=== PATIENT | male | born 1930 | race Caucasian/White ===

== ENCOUNTER 2017-06-02 17:05 | Inpatient (IN) | payer OTHER ==
[~2017-06-02] VITALS: Ht 177.8 cm; Wt 73.7 kg
[~2017-06-02 17:05] MED LIST: ASPI-630 PO; CALC500T54 PO; DUTA0.5C PO; ENOX40DI SQ; FISH OIL OMEGA1 EACH PO; Hydrocodone/Acetaminophen PO; LEVO88TA4 PO; LOVA20TA2 PO; Metoprolol Tartrate PO; OMEG500C PO; OMEP40CA5 PO; TAMS0.4C2 PO; TRIA10PO2 MC; WARF5TAB7 PO; WARF7.5T6 PO
[2017-06-02] MEDS ORDERED: ASPIRIN CHEWABLE 81 MG TABLET. PO ONE (17:30)
[2017-06-02] MEDS ORDERED: NITROGLYCERIN SUBLINGUAL 0.4 MG BOTTLE OF 25. SL PRN (17:30)
[2017-06-02] MEDS ORDERED: fentaNYL PF VIAL 100 MCG/2 ML VIAL IV PRN (17:30)
--- NOTE | 2017-06-02 17:45 | EKG ---
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
[2017-06-02 18:14] LABS: BASO % 1 % (0-3); EOS % 1 % (0-3); HEMATOCRIT 41.8 % (39.0-53.0); HEMOGLOBIN 13.7 g/dL (13.0-17.5); LYMPH # 1.5 x10^3/uL (1.0-4.8); LYMPH % 22 % (24-48); MEAN CORPUSCULAR HEMOGLOBIN 29 pg (25-35); MEAN CORPUSCULAR HGB CONC 33 g/dL (31-37); MEAN CORPUSCULAR VOLUME 88 fL (79-100); MONO % 7 % (0-9); NEUT % 70 % (31-73); PLATELET COUNT 139 x10^3/uL (140-400); RED BLOOD COUNT 4.75 x10^6/uL (4.30-5.70); RED CELL DISTRIBUTION WIDTH 14.3 % (11.5-14.5); WHITE BLOOD COUNT 6.8 x10^3/uL (4.0-11.0)
[2017-06-02 18:30] LABS: CALCIUM 8.4 mg/dL (8.5-10.1); CREATININE 1.6 mg/dL (0.7-1.3); GFR 40.9
[2017-06-02 18:37] LABS: ALBUMIN 4.2 g/dL (3.4-5.0); DIRECT BILIRUBIN 0.3 mg/dL (0.0-0.2); TOTAL BILIRUBIN 1.2 mg/dL (0.2-1.0); TOTAL PROTEIN 6.2 g/dL (6.4-8.2)
[2017-06-02 20:25] VITALS: BP 140/80
[2017-06-02] MEDS ORDERED: NITROGLYCERIN PREMIX 250 ML IV ONE (20:45)
[2017-06-02] MEDS: MORPHINE SULFATE 2 MG/ML DISP.SYRIN. IV PRN ×2 (20:56→23:32)
[2017-06-02] MEDS ORDERED: ASPIRIN CHEWABLE 81 MG TABLET. PO SCH (21:00)
[2017-06-02] MEDS ORDERED: HEPARIN for IV BOLUS 10,000 UNIT/10 ML VIAL. IV ONE (21:00)
[2017-06-02] MEDS ORDERED: HEPARIN 25,000UTS/500ML PREMIX 500 ML IV PRN (21:00)
[2017-06-02] MEDS ORDERED: HEPARIN for IV BOLUS 10,000 UNIT/10 ML VIAL. IV PRN (21:00)
[2017-06-02] MEDS: METOPROLOL TART IMMED RELEASE 25 MG TABLET. PO SCH (21:00)
[2017-06-02] MEDS: ATORVASTATIN CALCIUM 20 MG TABLET PO SCH (21:00)
[2017-06-02] MEDS: TAMSULOSIN 0.4 MG CAP.ER.24H. PO SCH (21:00)
--- NOTE | 2017-06-02 21:11 | EKG ---
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 : 1930 Requested By: KIMBERLY BARRIOS Order Number: [id number] Reading MD: Measurements Intervals [place] Rate: 75 P: 0 MI: 140 QRS: 59 QRSD: 102 T: -52 QT: 428 QTc: 481 Interpretive Statements SINUS RHYTHM COMPLEX(ES) WITH ABERRANT INTRAVENTRICULAR CONDUCTION VENTRICULAR PREMATURE COMPLEX(ES) ATRIAL PREMATURE COMPLEX(ES) QRS(T) CONTOUR ABNORMALITY CONSIDER ANTEROLATERAL MYOCARDIAL DAMAGE ST & T ABNORMALITY, CONSIDER INFEROLATERAL ISCHEMIA OR LEFT VENTRICULAR STRAIN ABNORMAL ECG RI6.01 Compared to ECG 05/28/2017 22:49:16 Left-axis deviation no longer present Myocardial infarct finding no longer present T-wave abnormality still present Possible ischemia still present
[2017-06-02 21:19] LABS: INR 1.3 (0.8-1.1); PROTHROMBIN TIME PATIENT 15.4 SEC (11.7-14.0)
[2017-06-02 22:29] VITALS: BP 168/86
[2017-06-03] VITALS (11 sets, daily range): BP systolic 129–182; BP diastolic 75–101
[2017-06-03 01:05] LABS: HEMATOCRIT 40.9 % (39.0-53.0); HEMOGLOBIN 13.5 g/dL (13.0-17.5); RED BLOOD COUNT 4.69 x10^6/uL (4.30-5.70); RED CELL DISTRIBUTION WIDTH 14.8 % (11.5-14.5); WHITE BLOOD COUNT 6.1 x10^3/uL (4.0-11.0)
--- NOTE | 2017-06-03 01:13 | ED.ADGEN ---
Past Medical History Past Medical History: GERD, High Cholesterol, Hypothyroid Past Surgical History: Appendectomy, Cholecystectomy, Knee Replacement Additional Past Surgical Histo: OPEN HEART SURGERY-AORTIC VALVE REPLACEMENT, COLON SURGERY Alcohol Use: None Drug Use: None Adult General Chief Complaint Chief Complaint: CHEST PAIN HPI HPI Patient is a 87 year old and, history of hypertension, hypercholesterolemia, GERD, CAD, with an abnormal stress test was performed May 31 during her recent admission to the hospital. At that time the patient was discharged with a plan to treat medically, however he began experiencing chest pain earlier today, and when he contacted the cardiology office was told to come to the ED for additional evaluation. On arrival to the ED, patient states that his pain is currently fully resolved. He states it was attributed 10-14 to the ED, described as a dull aching pressure located in the left side of his chest with some radiation to the left arm. He denies any nausea or vomiting, any shortness breath, any belching, any radiation of the back, any weakness, numbness, tingling, any injuries, states that the symptoms are consistent with the chest pain that brought him to the ED before his previous evaluation that resulted in the abnormal stress test. Patient states he has been compliant with medications at home, but was not discharged with any nitrates. Patient has received 324 mg of aspirin in the ED orally. No history of recent travel or surgery, no history of DVT or PE. No swelling extremities, no rashes. Review of Systems Review of Systems Constitutional: Denies fever or chills. [] Eyes: Denies change in visual acuity. [] HENT: Denies nasal congestion or sore throat. [] Respiratory: Denies cough or shortness of breath. [] Cardiovascular: Left-sided chest pain and pressure. No edema. GI: Denies abdominal pain, nausea, vomiting, bloody stools or diarrhea. [] : Denies dysuria. [] Musculoskeletal: Denies back pain or joint pain. [] Integument: Denies rash. [] Neurologic: Denies headache, focal weakness or sensory changes. [] Endocrine: Denies polyuria or polydipsia. [] Lymphatic: Denies swollen glands. [] Psychiatric: Denies depression or anxiety. [] Current Medications Current Medications Current Medications Medications (Trade) Dose Ordered Sig/Kristina Start Time Stop Time Status Last Admin Dose Admin Aspirin (Children'S Aspirin) 324 mg 1X ONCE 8/10/17 17:30 06/02/17 17:32 DC 06/02/17 17:58 324 MG Fentanyl Citrate (Fentanyl 2ml Vial) 25 mcg PRN Q15MIN PRN 06/02/17 17:30 06/03/17 17:29 06/02/17 17:59 25 MCG Nitroglycerin (Nitrostat) 0.4 mg PRN Q5MIN PRN 06/02/17 17:30 06/03/17 17:29 Allergies Allergies Allergies Coded Allergies Type Severity Reaction Last Updated Verified amoxicillin Allergy Intermediate 03/10/15 Yes Physical Exam Physical Exam Constitutional: Well developed, well nourished, no acute distress, non-toxic appearance. [] HENT: Normocephalic, atraumatic, bilateral external ears normal, oropharynx moist, no oral exudates, nose normal. [] Eyes: PERRLA, EOMI, conjunctiva normal, no discharge. [] Neck: Normal range of motion, no tenderness, supple, no stridor. [] Cardiovascular:Heart rate regular rhythm, no murmur , S1, S2, rubs or gallops. No chest wall crepitus or tenderness. [] Lungs & Thorax: Bilateral breath sounds clear to auscultation, no wheezing, rhonchi, rales. No lesions or abnormalities identified. [] Abdomen: Bowel sounds normal, soft, no tenderness, no rebound, rigidity, no guarding, no masses, no pulsatile masses. [] Skin: Warm, dry, no erythema, no rash. [] Back: No tenderness, no CVA tenderness. [] Extremities: No tenderness, no cyanosis, no clubbing, ROM intact, no edema. Negative Homans sign. [] Neurologic: Alert and oriented X 3, normal motor function, normal sensory function, no focal deficits noted. [] Psychologic: Affect normal, judgement normal, mood normal. [] Current Patient Data Vital Signs Vital Signs Date Time Temp Pulse Resp B/P (MAP) Pulse Ox O2 Delivery O2 Flow Rate FiO2 06/02/17 18:17 77 19 111/65 (80) 95 Room Air 06/02/17 17:19 97.9 97.9 Lab Values Laboratory Tests Test 06/02/17 17:55 White Blood Count 6.8 x10^3/uL (4.0-11.0) Red Blood Count 4.75 x10^6/uL (4.30-5.70) Hemoglobin 13.7 g/dL (13.0-17.5) Hematocrit 41.8 % (39.0-53.0) Mean Corpuscular Volume 88 fL (79-100) Mean Corpuscular Hemoglobin 29 pg (25-35) Mean Corpuscular Hemoglobin Concent 33 g/dL (31-37) Red Cell Distribution Width 14.3 % (11.5-14.5) Platelet Count 139 x10^3/uL (140-400) L Neutrophils (%) (Auto) 70 % (31-73) Lymphocytes (%) (Auto) 22 % (24-48) L Monocytes (%) (Auto) 7 % (0-9) Eosinophils (%) (Auto) 1 % (0-3) Basophils (%) (Auto) 1 % (0-3) Neutrophils # (Auto) 4.8 x10^3uL (1.8-7.7) Lymphocytes # (Auto) 1.5 x10^3/uL (1.0-4.8) Monocytes # (Auto) 0.5 x10^3/uL (0.0-1.1) Eosinophils # (Auto) 0.1 x10^3/uL (0.0-0.7) Basophils # (Auto) 0.0 x10^3/uL (0.0-0.2) Prothrombin Time 15.4 SEC (11.7-14.0) H Prothrombin Time INR 1.3 (0.8-1.1) H PTT 29 SEC (24-38) Sodium Level 142 mmol/L (136-145) Potassium Level 4.0 mmol/L (3.5-5.1) Chloride Level 107 mmol/L (98-107) Carbon Dioxide Level 23 mmol/L (21-32) Anion Gap 12 (6-14) Blood Urea Nitrogen 26 mg/dL (8-26) Creatinine 1.6 mg/dL (0.7-1.3) H Estimated GFR (Cockcroft-Gault) 40.9 Glucose Level 106 mg/dL (70-99) H Calcium Level 8.4 mg/dL (8.5-10.1) L Total Bilirubin 1.2 mg/dL (0.2-1.0) H Direct Bilirubin 0.3 mg/dL (0.0-0.2) H Aspartate Amino Transferase (AST) 23 U/L (15-37) Alanine Aminotransferase (ALT) 23 U/L (16-63) Alkaline Phosphatase 71 U/L (46-116) Troponin I Quantitative 0.646 ng/mL (0.000-0.055) XK-Ojr-I-Type Natriuretic Peptide 6002 pg/mL (0-449) H Total Protein 6.2 g/dL (6.4-8.2) L Albumin 4.2 g/dL (3.4-5.0) Lipase 140 U/L (73-393) Laboratory Tests 06/02/17 17:55 Laboratory Tests 06/02/17 17:55 EKG EKG EC: Sinus rhythm, heart rate 73 bpm, left axis deviation, patient with contour abnormalities noted in the inferior and lateral leads, with evidence of left ventricular hypertrophy, patient with persistent T-wave inversions in V6, although patient noted to have some mild depression of 2 mm in V4, with 1 mm macular of elevation in lead 3, and T-wave inversions noted in aVL, also in lead 1. ECG is abnormal, as stated, and unchanged from prior test performed 2016, although LVH is consistent, the T-wave changes noted in the inferior and lead V6 are new. Patient is pain-free at time of this ECG being obtained, and although doesn't normally does not meet STEMI criteria. EC: Sinus rhythm, heart rate 72 beats minute, single PVC noted, left ventricular hypertrophy with repolarization as stated, with T-wave inversions again noted in V6, also noted in V5 at this time, with no other significant changes identified, QTC of 466, WI 156, QRS of 96. Patient remains chest pain- free at time of this repeat ECG. [] Radiology/Procedures Radiology/Procedures Chest x-ray: One view: Slight tortuosity of the aorta, with otherwise cardial silhouette, sternotomy wires in place, mild flattening of diaphragms bilaterally , no pneumothorax, no effusion, no soft tissue or bony abnormalities identified. As interpreted by me. Course & Med Decision Making Course & Med Decision Making Pertinent Labs and Imaging studies reviewed. (See chart for details) Patient asymptomatic at time of evaluation the ED. Although ECG does reveal some concerning findings, with T-wave inversions noted in the lateral leads, patient is a history of left hypertrophy, and ECG does not meet STEMI criteria. Vital signs within normal limits, patient has received full dose aspirin. Troponin was positive at 0.6, I did discuss ECGs and laboratory studies with Dr. Avelar of cardiology, patient initiated on a heparin drip. Plan for admission to the hospital, and catheterization to be performed tomorrow discussed with patient and family at bedside, who were in agreement with this plan. Patient remained stable and comfortable in the emergency department, at time of transfer to the floor. Patient accepted to the service of Dr. Wiseman, of internal medicine, with bridge orders entered, with plan as above. Dragon Disclaimer Dragon Disclaimer This electronic medical record was generated, in whole or in part, using a voice recognition dictation system. Departure Impression: Primary Impression: NSTEMI (non-ST elevated myocardial infarction) Disposition: 09 ADMITTED INPATIENT Admitting Physician: Shaila Wiseman Condition: IMPROVED BRYANT MUELLER DO Jun 03, 2017 01:13
--- NOTE | 2017-06-03 01:15 | ACF ---
Admission Forms Criteria MYOCARDIAL INFARCTION Clinical Indications for Admission to Inpatient Care (Place 'X' for any and all applicable criteria): Admission is indicated for 1 or more of the following (1)(2)(3)(4): [ X]I. Acute AR [ ]II. Contraindications and/or Inappropriate clinical situations for Observational Care in patients with Myocardial Infarction, when ANY ONE of the following is required: [ ]a) Patient with High risk of cardiac embolism (e.g, patients with previous cardiac embolism, LVEF < 40%, age >75 and patients with prosthetic valve) 18 [ ]b) Patient with Moderate risk including DM patient, CAD and patient aged 65-75 18 [ ]c) Patient with any change in cardiac biomarker especially troponin should be managed as high risk in an inpatient setting 19 [ ]d) Physician judgement irrespective of ECG and other diagnostic findings 20 [ ]III.General contraindications and/or Inappropriate clinical situations for Observational Care in patients with Myocardial Infarction, when ANY ONE of the following is required: [ ]a) Prediction of prolongation of LOS based on ANY ONE of the following may be considered as a contraindication for observational care 2, 3, 4, 5, 6, 7, 8, 9, 10, 11 [ ]i) Age > 65 yrs. [ ]ii) Patient arriving by ambulance [ ]iii) Patient with high acuity [ ]iv) Patient requiring vital sign monitoring [ ]v) Patient on IV medication [ ]b) Systolic blood pressures greater than or equal to 180mmHg 3,12 [ ]c) Patient with altered mental status including delirium and other alteration of consciousness, (3) [ ]d) Patient whose discharge disposition will be to a alf home or rehabilitation home should not be managed in Emergency Department Observation Unit. CMS rule requires 3 days hospital stay before such placement. 3,13 [ ]e) Patient with failure to thrive due to broad array of etiologies 3 ,16,17 [ ]f) Inability to ambulate 3,14 Extended stay beyond goal length of stay may be needed for (1)(18)(20)(24)(25): [ ]a) Hemodynamic instability, persisting symptoms after intensive medical management, or recurring severe, prolonged symptoms [ ]b) Intravascular procedural complications such as acute vessel closure, stent thrombosis, stent malposition, or vessel dissection (26)(27)(28) [ ]c) Extravascular procedural complications such as retroperitoneal hematoma , pericardial effusion, or cardiac tamponade [ ]d) Entry site complications causing bleeding, hematoma or distal ischemia and requiring ongoing monitoring, surgical repair or surgical thrombectomy. Dangerous arrhythmia [ ]e) Complicated percutaneous coronary intervention (e.g., unsuccessful percutaneous coronary intervention or percutaneous coronary intervention of non- grand traverse vessel) [ ]f) Urgent or emergent surgery for complications of AR (e.g., ventricular rupture, valvular insufficiency) [ ]g) Surgical revascularization via coronary artery bypass graft [ ]h) Heart failure (e.g., pulmonary edema) [ ]i) Unstable pulmonary comorbidities, including COPD or pneumonia (31) [ ]j) Acute renal failure The original [employer] content created by [employer] has been revised. The portions of the content which have been revised are identified through the use of italic text or in bold, and [facility] [employer] has neither reviewed nor approved the modified material. All other unmodified content is copyright [facility] [employer] Please see references footnoted in the original [facility] edition 2016 Admission Criteria Met?: Yes RICCARDO JUSTIN Jun 03, 2017 01:15
[2017-06-03] MEDS: HYDROcodone/APAP 5/325MG 1 TAB TABLET PO PRN ×2 (02:25→08:13)
--- NOTE | 2017-06-03 06:11 | EKG ---
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
[2017-06-03 06:25] LABS: INR 1.3 (0.8-1.1); PROTHROMBIN TIME PATIENT 15.8 SEC (11.7-14.0)
[2017-06-03 06:34] LABS: CALCIUM 8.8 mg/dL (8.5-10.1); CREATININE 1.5 mg/dL (0.7-1.3); GFR 44.1; POTASSIUM 4.1 mmol/L (3.5-5.1)
[2017-06-03 06:39] LABS: BASO % 1 % (0-3); EOS % 1 % (0-3); HEMATOCRIT 39.6 % (39.0-53.0); HEMOGLOBIN 13.8 g/dL (13.0-17.5); LYMPH # 1.7 x10^3/uL (1.0-4.8); LYMPH % 29 % (24-48); MEAN CORPUSCULAR HEMOGLOBIN 30 pg (25-35); MEAN CORPUSCULAR HGB CONC 35 g/dL (31-37); MEAN CORPUSCULAR VOLUME 86 fL (79-100); MONO % 8 % (0-9); NEUT % 62 % (31-73); PLATELET COUNT 136 x10^3/uL (140-400); RED BLOOD COUNT 4.59 x10^6/uL (4.30-5.70); RED CELL DISTRIBUTION WIDTH 14.5 % (11.5-14.5); WHITE BLOOD COUNT 5.8 x10^3/uL (4.0-11.0)
[2017-06-03] MEDS: DUTASTERIDE 0.5 MG CAPSULE PO SCH (08:09)
[2017-06-03] MEDS: OMEGA-3 FATTY ACIDS/FISH OIL 1,000 MG CAPSULE. PO SCH (08:09)
[2017-06-03] MEDS: CALCIUM CARBONATE 500 MG TABLET PO SCH (08:10)
[2017-06-03] MEDS: METOPROLOL TART IMMED RELEASE 25 MG TABLET. PO SCH ×2 (08:10→21:17)
[2017-06-03] MEDS: PANTOPRAZOLE 40 MG TABLET.DR. PO SCH (08:10)
[2017-06-03] MEDS: LEVOTHYROXINE 50 MCG TABLET PO SCH (08:10)
--- NOTE | 2017-06-03 08:13 | RAD ---
Indication chest pain. A single view chest was obtained and is compared to an examination 5 days earlier. Postoperative changes and a prosthetic valve are noted. Heart size at the upper limits of normal. Slightly tortuous thoracic aorta is noted. Some prominence of the ascending thoracic aorta is again noted appearing similar. There is no congestive heart failure focal infiltrate significant pleural fluid collection or pneumothorax. There has not been a significant change in the appearance of the chest compared to the previous exam. IMPRESSION: No acute finding. No significant change
--- NOTE | 2017-06-03 09:07 | PDOC ---
ANNA SEAMAN GASOLINE CATALYST OPERATOR 06/03/17 0907: CARDIO Progress Notes Date and Time Date of Service 06/03/17 Time of Evaluation 0900 Subjective Subjective: No Chest Pain, No shortness of breath, No Palpitations Vitals Vitals Vital Signs Date Time Temp Pulse Resp B/P (MAP) Pulse Ox O2 Delivery O2 Flow Rate FiO2 06/03/17 08:13 18 98 2.0 06/03/17 08:10 73 179/101 06/03/17 07:00 97.6 97.6 06/03/17 02:15 Nasal Cannula Weight Weight [ ] Input and Output Intake and Output Intake and Output 06/03/17 07:00 Intake Total 500 ml Output Total 300 ml Balance 200 ml Intake Oral 500 ml Output Urine Total 300 ml Laboratory Labs Laboratory Tests Test 06/02/17 17:55 06/03/17 00:01 06/03/17 04:30 06/03/17 05:00 White Blood Count 6.8 x10^3/uL (4.0-11.0) 6.1 x10^3/uL (4.0-11.0) 5.8 x10^3/uL (4.0-11.0) Red Blood Count 4.75 x10^6/uL (4.30-5.70) 4.69 x10^6/uL (4.30-5.70) 4.59 x10^6/uL (4.30-5.70) Hemoglobin 13.7 g/dL (13.0-17.5) 13.5 g/dL (13.0-17.5) 13.8 g/dL (13.0-17.5) Hematocrit 41.8 % (39.0-53.0) 40.9 % (39.0-53.0) 39.6 % (39.0-53.0) Mean Corpuscular Volume 88 fL (79-100) 87 fL (79-100) 86 fL (79-100) Mean Corpuscular Hemoglobin 29 pg (25-35) 29 pg (25-35) 30 pg (25-35) Mean Corpuscular Hemoglobin Concent 33 g/dL (31-37) 33 g/dL (31-37) 35 g/dL (31-37) Red Cell Distribution Width 14.3 % (11.5-14.5) 14.8 % (11.5-14.5) 14.5 % (11.5-14.5) Platelet Count 139 x10^3/uL (140-400) 134 x10^3/uL (140-400) 136 x10^3/uL (140-400) Neutrophils (%) (Auto) 70 % (31-73) 62 % (31-73) Lymphocytes (%) (Auto) 22 % (24-48) 29 % (24-48) Monocytes (%) (Auto) 7 % (0-9) 8 % (0-9) Eosinophils (%) (Auto) 1 % (0-3) 1 % (0-3) Basophils (%) (Auto) 1 % (0-3) 1 % (0-3) Neutrophils # (Auto) 4.8 x10^3uL (1.8-7.7) 3.6 x10^3uL (1.8-7.7) Lymphocytes # (Auto) 1.5 x10^3/uL (1.0-4.8) 1.7 x10^3/uL (1.0-4.8) Monocytes # (Auto) 0.5 x10^3/uL (0.0-1.1) 0.5 x10^3/uL (0.0-1.1) Eosinophils # (Auto) 0.1 x10^3/uL (0.0-0.7) 0.1 x10^3/uL (0.0-0.7) Basophils # (Auto) 0.0 x10^3/uL (0.0-0.2) 0.0 x10^3/uL (0.0-0.2) Prothrombin Time 15.4 SEC (11.7-14.0) 15.8 SEC (11.7-14.0) Prothromb Time International Ratio 1.3 (0.8-1.1) 1.3 (0.8-1.1) Activated Partial Thromboplast Time 29 SEC (24-38) Sodium Level 142 mmol/L (136-145) 141 mmol/L (136-145) Potassium Level 4.0 mmol/L (3.5-5.1) 4.1 mmol/L (3.5-5.1) Chloride Level 107 mmol/L (98-107) 105 mmol/L (98-107) Carbon Dioxide Level 23 mmol/L (21-32) 24 mmol/L (21-32) Anion Gap 12 (6-14) 12 (6-14) Blood Urea Nitrogen 26 mg/dL (8-26) 23 mg/dL (8-26) Creatinine 1.6 mg/dL (0.7-1.3) 1.5 mg/dL (0.7-1.3) Estimated GFR (Cockcroft-Gault) 40.9 44.1 Glucose Level 106 mg/dL (70-99) 128 mg/dL (70-99) Calcium Level 8.4 mg/dL (8.5-10.1) 8.8 mg/dL (8.5-10.1) Total Bilirubin 1.2 mg/dL (0.2-1.0) Direct Bilirubin 0.3 mg/dL (0.0-0.2) Aspartate Amino Transf (AST/SGOT) 23 U/L (15-37) Alanine Aminotransferase (ALT/SGPT) 23 U/L (16-63) Alkaline Phosphatase 71 U/L (46-116) Troponin I Quantitative 0.646 ng/mL (0.000-0.055) 1.463 ng/mL (0.000-0.055) 1.521 ng/mL (0.000-0.055) SL-Kih-O-Type Natriuretic Peptide 6002 pg/mL (0-449) Total Protein 6.2 g/dL (6.4-8.2) Albumin 4.2 g/dL (3.4-5.0) Lipase 140 U/L (73-393) Physical Exam HEENT: Neck Supple W Full Motion Chest: Symmetric LUNGS: Clear to Auscultation Heart: S1S2, RRR, murmurs (3/6 systolic murmur ) Abdomen: Soft N/T Extremities: 2+ Dorsalis Pedis, No Edema Neurology: alert, oriented, follow commands Assessment Assessment This is an 87 yo male, known to us from recent hospitalization, who returns with complaints of chest pain. Patient underwent stress test this past week, which noted very small defect in the inferoseptal region. Echo revealed preserved LV function with an EF of 50-55%. Treated medically with consideration of further ischemic evaluation if symptoms returned. Patient reports experiencing intermittent pain for the last day or so. Located in his left chest. Describes as aching. Radiates down his left arm. Onset both at reset and with activity. Onset at both rest and with activity. Seems to be worsened with activity. Denies any associated dizziness, diaphoresis, palpitations, diaphoresis, or nausea. Reports compliance with medications. Assessment 1. NSTEMI; troponin highest 1.5. Continue to trend. 3. Unstable angina with a history of CAD s/p CABG; continue nitro. Keep NPO. 4. S/p aortic mechanical valve replacement. Recent Echo reveals normal valvular function. Continue warfarin therapy; INR subtherapeutic. 5. Hypertension; home antiHTN therapy resumed. 6. Hyperlipidemia. LDL 79. statin therapy. Recommendations Start heparin per protocol Continue nitro gtt. Given significant risk factors, symptomatology, and slightly abnormal MPI in the setting of NSTEMI, will proceed with cardiac catheterization. R/b/a discussed with patient and family and are agreeable. D/w primary cardiology. Will proceed with later on today. SHELTON LY MD 06/03/17 1513: CARDIO Progress Notes Assessment Assessment Patient seen and examined. Agree with VP BIOLOGY's assessment and plan. Chest pain with typical features and troponin level elevated consistent with non -STEMI. We will proceed with cardiac catheterization and possible angioplasty. Risks and benefits were explained. INR subtherapeutic. Adjust Coumadin to keep INR between 2.5-3.5 secondary to mechanical aVR. Thank you for your consultation. ANNA SEAMAN APRN Jun 03, 2017 09:07 SHELTON LY MD Jun 03, 2017 15:13
[2017-06-03] MEDS ORDERED: ONDANSETRON PF 4 MG/2 ML VIAL. IV PRN (10:00)
[2017-06-03] MEDS ORDERED: HEPARIN 25,000UTS/500ML PREMIX 500 ML IV PRN (10:15)
[2017-06-03] MEDS ORDERED: HEPARIN for IV BOLUS 10,000 UNIT/10 ML VIAL. IV PRN (10:15)
--- NOTE | 2017-06-03 11:23 | HP ---
ADMIT DATE: 06/03/2017 CHIEF COMPLAINT: Chest pain. HISTORY OF PRESENT ILLNESS: The patient is a pleasant elderly male who has known coronary disease. In fact he has had even aortic valve replacement as well. At this time, he presents with chest pain that has been occurring for a couple of days off and on. He had an abnormal stress test back in May 31. He was actually admitted at that time. They were going to medically treat his coronary artery disease at that time. At this time, his troponin is climbing and it is up to 1.5. I discussed the case with the ER physician. We will admit the patient with consultation to Cardiology, is on a nitro drip. PAST MEDICAL HISTORY: Coronary artery disease, hypertension, hyperlipidemia, aortic valve replacement, chronic anticoagulation, cholecystectomy, knee replacement, colon surgery. ALLERGIES: AMOXICILLIN. FAMILY HISTORY: Coronary artery disease. SOCIAL HISTORY: Does not drink, smoke or take drugs. MEDICATIONS: Reviewed, please refer to the MRAD. REVIEW OF SYSTEMS: GENERAL: No history of weight change, weakness or fevers. SKIN: No bruising, hair changes or rashes. EYES: No blurred, double or loss of vision. NOSE AND THROAT: No history of nosebleeds, hoarseness or sore throat. HEART: He complains of chest pain. LUNGS: Denies cough, hemoptysis, wheezing or shortness of breath. GASTROINTESTINAL: Denies changes in appetite, nausea, vomiting, diarrhea or constipation. GENITOURINARY: No history of frequency, urgency, hesitancy or nocturia. NEUROLOGIC: Denies history of numbness, tingling, tremor or weakness. PSYCHIATRIC: No history of panic, anxiety or depression. ENDOCRINE: No history of heat or cold intolerance, polyuria or polydipsia. EXTREMITIES: Denies muscle weakness, joint pain, pain on walking or stiffness. PHYSICAL EXAMINATION: VITAL SIGNS: Temperature afebrile, pulse 73, respirations 18, blood pressure 179/101. GENERAL: He is alert, cooperative. HEART: Normal S1, S2. LUNGS: Clear. ABDOMEN: Soft, positive bowel sounds. EXTREMITIES: 1+ edema. SKIN: No rashes. PSYCHIATRIC: He is a little flat, but stable. ENDOCRINE: No thyromegaly. LYMPHATICS: No cervical nodes. HEMATOPOIETIC: No bruising. ASSESSMENT AND PLAN: Probable acute myocardial infarction with an elevated troponin of 1.5. The patient has been admitted. We are continuing serial enzymes, serial EKGs, cardiac monitoring, nitro drip. We will consult Cardiology. 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 PROGNOSIS: Guarded. MERLINE SHI DO DR: GEOVANY/devika JOB#: [id number] / [id number]
[2017-06-03] MEDS ORDERED: LIDOCAINE 2% 20 ML VIAL. ONE (13:15)
[2017-06-03] MEDS ORDERED: IODIXANOL 320 MG/ML 100 ML VIAL. ONE ×2 (13:15→14:27)
[2017-06-03] MEDS ORDERED: fentaNYL PF VIAL 100 MCG/2 ML VIAL IV ONE (13:45)
[2017-06-03] MEDS ORDERED: LIDOCAINE 2% 20 ML VIAL. IJ ONE (13:45)
[2017-06-03] MEDS ORDERED: VERAPAMIL 5 MG/2 ML VIAL. IART ONE (13:45)
[2017-06-03] MEDS ORDERED: MIDAZOLAM HCL/PF 2 MG/2 ML VIAL. IV ONE (13:45)
[2017-06-03] MEDS ORDERED: HEPARIN for IV BOLUS 10,000 UNIT/10 ML VIAL. IART ONE (13:45)
[2017-06-03] MEDS ORDERED: NITROGLYCERIN 200 MCG/2 ML SYRINGE FOR CATH/VASC LAB. IART ONE (13:45)
[2017-06-03] MEDS ORDERED: IODIXANOL 320 MG/ML 100 ML VIAL. IART ONE (13:45)
[2017-06-03] MEDS ORDERED: VERAPAMIL 5 MG/2 ML VIAL. ONE ×2 (13:51→15:00)
[2017-06-03] MEDS ORDERED: HEPARIN for IV BOLUS 10,000 UNIT/10 ML VIAL. ONE (13:51)
[2017-06-03] MEDS ORDERED: NITROGLYCERIN 200 MCG/2 ML SYRINGE FOR CATH/VASC LAB. ONE (13:51)
[2017-06-03] MEDS ORDERED: fentaNYL PF VIAL 100 MCG/2 ML VIAL ONE (13:52)
[2017-06-03] MEDS ORDERED: MIDAZOLAM HCL/PF 2 MG/2 ML VIAL. ONE (13:52)
[2017-06-03] MEDS ORDERED: BIVALIRUDIN 250 MG VIAL. IV ONE ×2 (14:22→14:45)
[2017-06-03] MEDS ORDERED: CLOPIDOGREL BISULFATE 75 MG TABLET PO ONE (14:45)
[2017-06-03] MEDS ORDERED: ASPIRIN 325 MG TABLET PO ONE (14:45)
[2017-06-03] MEDS ORDERED: ASPIRIN 325 MG TABLET ONE (14:59)
[2017-06-03] MEDS ORDERED: CLOPIDOGREL BISULFATE 75 MG TABLET ONE (14:59)
--- NOTE | 2017-06-03 15:24 | PDOC ---
MODERATE SEDATION ASSESSMENT RISKS/ALTERNATIVES Risks/Alternatives Risks and alternatives of this type of sedation and procedure discussed with: RISK/ALTERNATIVES: Patient H & P ON CHART H & P H & P on chart and reviewed for co-morbid conditions and appropriate labs. H&P ON CHART: Yes STATUS PREG STATUS ASSESSED: N/A MEDS/ALLERGIES REVIEWED Meds/Allergies Reviewed Medications and Allergies including time and route of recently administered narcotics and sedatives. MEDS/ALLERGIES REVIEWED: Yes ASA RATING ASA RATING: II AIRWAY ASSESSMENT Airway Assessment Airway patency, oral function limitations, presence of caps, crowns, dentures, partials, and ability to extend neck assessed. AIRWAY ASSESSMENT: Yes MALLAMPATI SCORE MALLAMPATI SCORE: II PRE-SEDATION ASSESSMENT PRE-SEDATION ASSESSMENT: Yes SHELTON LY MD Jun 03, 2017 15:24
[2017-06-03] MEDS ORDERED: NITROGLYCERIN SUBLINGUAL 0.4 MG BOTTLE OF 25. SL PRN (15:30)
[2017-06-03] MEDS ORDERED: ACETAMINOPHEN 325 MG TABLET. PO PRN (15:30)
[2017-06-03] MEDS: IV 1/2 NORMAL SALINE 1,000 ML IV SCH (15:41)
--- NOTE | 2017-06-03 15:52 | CARD ---
APPROVED REPORT Procedure(s) performed: 1. Left heart catheterization, selective coronary angiography and selective angiography of the bypass graft 2. Successful PCI/drug eluting stents placement to the right coronary artery 3. Successful PCI/drug eluting stent placement to left anterior descending artery via left internal mammary artery graft Sedation time: 64 min INDICATION The indication(s) include : non-STEMI . PROCEDURE NARRATIVE After explaining the risks, benefits and alternative options, informed consent was obtained from sarkis ent. Patient was brought to the cardia [facility] and his right groin was prepped and draped in the usu al fashion. 20 mL of 2% lidocaine was infiltrated into the skin and subcutaneous tissues for local an esthesia. Arterial access was obtained in the right common femoral artery and a 6 [place]ian sheath was i nserted. 6 [place]ian JL4 and 6 [place] JR4 catheters were used to perform selective angiography of the le ft and right coronary arteries. 6 [place] IM catheter was used to perform selective angiography of the left internal mammary artery graft to the left anterior descending artery. Several attempts were mad e to engage probable vein graft (bypass report not available) to left circumflex artery using JR4, IM , LCB catheters were unsuccessful. Aortogram was then performed with a 6 [place] pigtail catheter that confirmed lack of any other patent grafts. Left ventriculography was not performed due to presence o f mechanical aortic valve. The following findings were noted. FINDINGS 1. Left main coronary artery arose from the left sinus of Valsalva, gave rise to the left anterior d escending and left circumflex arteries and showed 40% distal segment stenosis. 2. The left anterior descending artery showed 100% occlusion in the midsegment. 3. The left circumflex artery showed 100% occlusion in the midsegment. 4. The right coronary artery was a large and dominant vessel arising from the right sinus of Valsalv a that showed a long 90-95% stenosis involving the proximal and mid segments. 5 . The left internal mammary artery graft to the left anterior descending artery was widely patent. Distal to the anastomosis, the alutiiq left anterior descending artery showed 80% stenosis. 6. Probable complete and chronic occlusion of vein graft to the left circumflex artery if any (kim dorado surgery report not available) INTERVENTION The right coronary artery was engaged with a 6 [place] JR4 guide catheter and the long stenosis in the proximal and mid segments was crossed with a 0.014 inch PressBaby guidewire. This was predilate d with a 3.0 x 20 mm trek balloon following which this was successfully treated with overlapping 3.0 x 38 mm and 3.5 x 33 mm Xience Alpine drug-eluting stents. Follow-up angiography showed resolution of the stenosis to 0% with CAITLYN-3 distal flow. Subsequently, the left internal mammary artery graft to the left anterior descending artery was engaged with a 6 [place] IM guide catheter and the stenosis in the left anterior descending artery was crossed with the same guidewire. This was successfully treat ed with a 2.5 x 18 mm Xience Alpine drug-eluting stent. Follow-up angiogrhaphy showed resolution of t he stenosis to 0% with CAITLYN-3 distal flow. Patient tolerated the procedure well. Hemostasis in the [facility] groin was achieved using Angio-Seal. There were no immediate complications. Conclusion 1. 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 2. Successful PCI/drug eluting stents placement to right coronary artery. 3. Successful PCI/drug eluting stent placement to the alutiiq left anterior descending artery via lef t internal mammary artery graft. Recommendations 1. Aspirin 325 mg daily 2. Plavix the 75 mg daily for preferably one year 3. Cardiovascular risk factor modification.
[2017-06-03] MEDS: TAMSULOSIN 0.4 MG CAP.ER.24H. PO SCH (21:17)
[2017-06-03] MEDS: ATORVASTATIN CALCIUM 20 MG TABLET PO SCH (21:17)
[2017-06-04 02:01] VITALS: BP 145/87
[2017-06-04] MEDS: IV 1/2 NORMAL SALINE 1,000 ML IV SCH (05:00)
[2017-06-04 05:33] LABS: HEMATOCRIT 42.1 % (39.0-53.0); HEMOGLOBIN 13.9 g/dL (13.0-17.5); RED BLOOD COUNT 4.75 x10^6/uL (4.30-5.70); RED CELL DISTRIBUTION WIDTH 14.6 % (11.5-14.5); WHITE BLOOD COUNT 7.9 x10^3/uL (4.0-11.0)
[2017-06-04 07:30] VITALS: BP 118/74
[2017-06-04] MEDS: LEVOTHYROXINE 50 MCG TABLET PO SCH (07:40)
[2017-06-04] MEDS: PANTOPRAZOLE 40 MG TABLET.DR. PO SCH (07:41)
[2017-06-04] MEDS ORDERED: ASPIRIN ENTERIC COATED 81 MG TABLET.DR. PO SCH (08:00)
[2017-06-04] MEDS ORDERED: CLOPIDOGREL BISULFATE 75 MG TABLET PO SCH (08:00)
[2017-06-04] MEDS: DUTASTERIDE 0.5 MG CAPSULE PO SCH (09:02)
[2017-06-04] MEDS: OMEGA-3 FATTY ACIDS/FISH OIL 1,000 MG CAPSULE. PO SCH (09:02)
[2017-06-04] MEDS: CALCIUM CARBONATE 500 MG TABLET PO SCH (09:02)
[2017-06-04] MEDS: METOPROLOL TART IMMED RELEASE 25 MG TABLET. PO SCH (09:03)
--- NOTE | 2017-06-04 09:55 | PDOC ---
NIKOLAI JUAREZ [employer] 06/04/17 0955: CARDIO Progress Notes Date and Time Date of Service 06/04/2017 Time of Evaluation 0840 Subjective Subjective: No Chest Pain, No shortness of breath, No Palpitations Vitals Vitals Vital Signs Date Time Temp Pulse Resp B/P (MAP) Pulse Ox O2 Delivery O2 Flow Rate FiO2 06/04/17 09:03 79 124/72 06/04/17 07:40 Nasal Cannula 2.0 06/04/17 07:30 97.5 18 98 97.5 Weight Weight [ ] Input and Output Intake and Output Intake and Output 06/04/17 07:00 Intake Total 400 ml Output Total 700 ml Balance -300 ml Intake Oral 400 ml Output Urine Total 700 ml Laboratory Labs Laboratory Tests Test 06/03/17 11:15 06/04/17 04:15 Troponin I Quantitative 11.818 ng/mL (0.000-0.055) White Blood Count 7.9 x10^3/uL (4.0-11.0) Red Blood Count 4.75 x10^6/uL (4.30-5.70) Hemoglobin 13.9 g/dL (13.0-17.5) Hematocrit 42.1 % (39.0-53.0) Mean Corpuscular Volume 89 fL (79-100) Mean Corpuscular Hemoglobin 29 pg (25-35) Mean Corpuscular Hemoglobin Concent 33 g/dL (31-37) Red Cell Distribution Width 14.6 % (11.5-14.5) Platelet Count 123 x10^3/uL (140-400) Physical Exam HEENT: Neck Supple W Full Motion Chest: Symmetric LUNGS: Clear to Auscultation Heart: S1S2, RRR (SR with PVCs and PACs), murmurs (3/6 systolic murmur to LLS border, LAMINE ejction click) Abdomen: Soft N/T Extremities: No Calf Tenderness Neurology: alert, oriented, follow commands Other Exams right groin arteriotomy site intact, no swelling, erythema or pain, neurovascular status to bilateral LE intact. Assessment Assessment 1. NSTEMI: Grafts noted via LHC. 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 2. CAD: CABG in the past. 3. S/p aortic mechanical valve replacement 5. Hypertension: Controlled 6. Hyperlipidemia: controlled Recommendations 1. Discussed with primary geological technical officer. INR today. If subtherapeutic then will dose for 10 mg coumadin today then resume regular home dosing tomorrow and repeat INR in 3 days 2. Continue with secondary prevention including ECASA 81 mg and plavix 75 mg daily. 3. Follow up in office on 06/22 4. Encourage cardiac rehab if possible. Unable to place on ACEi at this time due to renal insufficiency and recent increase in BB. Will reeval as an outpt. MORGAN MICHEL MD 06/04/17 1144: CARDIO Progress Notes Plan Plan Pt. seen and examined. 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 Doing well. Ok to DC later today. ADvised to f/u with PCP on tuesday for INR check. Home on ASA, Plavix and Coumadin. Upon f/u in 4 weeks, will likely DC ASA and contine plavix and coumadin for lifetime. thanks NIKOLAI JUAREZ APRN Jun 04, 2017 09:55 MORGAN MICHEL MD Jun 04, 2017 11:44
[2017-06-04 10:21] LABS: INR 1.3 (0.8-1.1); PROTHROMBIN TIME PATIENT 15.7 SEC (11.7-14.0)
[2017-06-04 11:00] VITALS: BP 108/64
[2017-06-04] MEDS ORDERED: MAGNESIUM SULFATE 2GM 50 ML IV ONE (11:00)
--- NOTE | 2017-06-04 12:12 | PDOC ---
PROGRESS NOTES Chief Complaint Chief Complaint CC: Chest pain, unstable angina -Aortic valve replacement -CAD -HTN -Hyperlipidemia History of Present Illness History of Present Illness -Pt was resting comfortably in bed with family at bedside -Appeared calm, alert, and in NAD Vitals Vitals Vital Signs Date Time Temp Pulse Resp B/P (MAP) Pulse Ox O2 Delivery O2 Flow Rate FiO2 06/04/17 11:00 98.5 71 18 108/64 (79) 97 Nasal Cannula 2.0 98.5 Physical Exam General: Alert, Oriented X3, Cooperative Heart: Regular rate, Normal S1 Lungs: Clear, Other (No RRW) Abdomen: Soft, No tenderness Extremities: No edema, Normal pulses Skin: No rashes, No significant lesion Labs LABS Laboratory Tests Test 06/04/17 04:15 06/04/17 05:00 06/04/17 10:00 White Blood Count 7.9 x10^3/uL (4.0-11.0) Red Blood Count 4.75 x10^6/uL (4.30-5.70) Hemoglobin 13.9 g/dL (13.0-17.5) Hematocrit 42.1 % (39.0-53.0) Mean Corpuscular Volume 89 fL (79-100) Mean Corpuscular Hemoglobin 29 pg (25-35) Mean Corpuscular Hemoglobin Concent 33 g/dL (31-37) Red Cell Distribution Width 14.6 % (11.5-14.5) Platelet Count 123 x10^3/uL (140-400) Magnesium Level 1.8 mg/dL (1.8-2.4) Prothrombin Time 15.7 SEC (11.7-14.0) Prothromb Time International Ratio 1.3 (0.8-1.1) Review of Systems Review of Systems -Pt expressed desire to go home -Denies n/v/d -Weakness Assessment and Plan Assessmemt and Plan Problems Medical Problems: (1) NSTEMI (non-ST elevated myocardial infarction) Status: Acute CC: Chest pain, unstable angina -Aortic valve replacement -CAD -HTN -Hyperlipidemia Plan: -Discussed OTC Mg Oxide with pt and family members -Start Plavix -Increase Metoprolol to 25mg -Cont. home meds -PT/OT -Appreciate input from Cardiology -Possible d/c if okay with Cardiology Problems: Comment Review of Relevant I have reviewed the following items montez (where applicable) has been applied. Labs Laboratory Tests Test 06/02/17 17:55 06/03/17 00:01 06/03/17 04:30 06/03/17 05:00 White Blood Count 6.8 x10^3/uL (4.0-11.0) 6.1 x10^3/uL (4.0-11.0) 5.8 x10^3/uL (4.0-11.0) Red Blood Count 4.75 x10^6/uL (4.30-5.70) 4.69 x10^6/uL (4.30-5.70) 4.59 x10^6/uL (4.30-5.70) Hemoglobin 13.7 g/dL (13.0-17.5) 13.5 g/dL (13.0-17.5) 13.8 g/dL (13.0-17.5) Hematocrit 41.8 % (39.0-53.0) 40.9 % (39.0-53.0) 39.6 % (39.0-53.0) Mean Corpuscular Volume 88 fL (79-100) 87 fL (79-100) 86 fL (79-100) Mean Corpuscular Hemoglobin 29 pg (25-35) 29 pg (25-35) 30 pg (25-35) Mean Corpuscular Hemoglobin Concent 33 g/dL (31-37) 33 g/dL (31-37) 35 g/dL (31-37) Red Cell Distribution Width 14.3 % (11.5-14.5) 14.8 % (11.5-14.5) 14.5 % (11.5-14.5) Platelet Count 139 x10^3/uL (140-400) 134 x10^3/uL (140-400) 136 x10^3/uL (140-400) Neutrophils (%) (Auto) 70 % (31-73) 62 % (31-73) Lymphocytes (%) (Auto) 22 % (24-48) 29 % (24-48) Monocytes (%) (Auto) 7 % (0-9) 8 % (0-9) Eosinophils (%) (Auto) 1 % (0-3) 1 % (0-3) Basophils (%) (Auto) 1 % (0-3) 1 % (0-3) Neutrophils # (Auto) 4.8 x10^3uL (1.8-7.7) 3.6 x10^3uL (1.8-7.7) Lymphocytes # (Auto) 1.5 x10^3/uL (1.0-4.8) 1.7 x10^3/uL (1.0-4.8) Monocytes # (Auto) 0.5 x10^3/uL (0.0-1.1) 0.5 x10^3/uL (0.0-1.1) Eosinophils # (Auto) 0.1 x10^3/uL (0.0-0.7) 0.1 x10^3/uL (0.0-0.7) Basophils # (Auto) 0.0 x10^3/uL (0.0-0.2) 0.0 x10^3/uL (0.0-0.2) Prothrombin Time 15.4 SEC (11.7-14.0) 15.8 SEC (11.7-14.0) Prothromb Time International Ratio 1.3 (0.8-1.1) 1.3 (0.8-1.1) Activated Partial Thromboplast Time 29 SEC (24-38) Sodium Level 142 mmol/L (136-145) 141 mmol/L (136-145) Potassium Level 4.0 mmol/L (3.5-5.1) 4.1 mmol/L (3.5-5.1) Chloride Level 107 mmol/L (98-107) 105 mmol/L (98-107) Carbon Dioxide Level 23 mmol/L (21-32) 24 mmol/L (21-32) Anion Gap 12 (6-14) 12 (6-14) Blood Urea Nitrogen 26 mg/dL (8-26) 23 mg/dL (8-26) Creatinine 1.6 mg/dL (0.7-1.3) 1.5 mg/dL (0.7-1.3) Estimated GFR (Cockcroft-Gault) 40.9 44.1 Glucose Level 106 mg/dL (70-99) 128 mg/dL (70-99) Calcium Level 8.4 mg/dL (8.5-10.1) 8.8 mg/dL (8.5-10.1) Total Bilirubin 1.2 mg/dL (0.2-1.0) Direct Bilirubin 0.3 mg/dL (0.0-0.2) Aspartate Amino Transf (AST/SGOT) 23 U/L (15-37) Alanine Aminotransferase (ALT/SGPT) 23 U/L (16-63) Alkaline Phosphatase 71 U/L (46-116) Troponin I Quantitative 0.646 ng/mL (0.000-0.055) 1.463 ng/mL (0.000-0.055) 1.521 ng/mL (0.000-0.055) BD-Tqo-N-Type Natriuretic Peptide 6002 pg/mL (0-449) Total Protein 6.2 g/dL (6.4-8.2) Albumin 4.2 g/dL (3.4-5.0) Lipase 140 U/L (73-393) Test 06/03/17 11:15 06/04/17 04:15 06/04/17 05:00 06/04/17 10:00 Troponin I Quantitative 11.818 ng/mL (0.000-0.055) White Blood Count 7.9 x10^3/uL (4.0-11.0) Red Blood Count 4.75 x10^6/uL (4.30-5.70) Hemoglobin 13.9 g/dL (13.0-17.5) Hematocrit 42.1 % (39.0-53.0) Mean Corpuscular Volume 89 fL (79-100) Mean Corpuscular Hemoglobin 29 pg (25-35) Mean Corpuscular Hemoglobin Concent 33 g/dL (31-37) Red Cell Distribution Width 14.6 % (11.5-14.5) Platelet Count 123 x10^3/uL (140-400) Magnesium Level 1.8 mg/dL (1.8-2.4) Prothrombin Time 15.7 SEC (11.7-14.0) Prothromb Time International Ratio 1.3 (0.8-1.1) Laboratory Tests Test 06/04/17 04:15 06/04/17 05:00 06/04/17 10:00 White Blood Count 7.9 x10^3/uL (4.0-11.0) Red Blood Count 4.75 x10^6/uL (4.30-5.70) Hemoglobin 13.9 g/dL (13.0-17.5) Hematocrit 42.1 % (39.0-53.0) Mean Corpuscular Volume 89 fL (79-100) Mean Corpuscular Hemoglobin 29 pg (25-35) Mean Corpuscular Hemoglobin Concent 33 g/dL (31-37) Red Cell Distribution Width 14.6 % (11.5-14.5) Platelet Count 123 x10^3/uL (140-400) Magnesium Level 1.8 mg/dL (1.8-2.4) Prothrombin Time 15.7 SEC (11.7-14.0) Prothromb Time International Ratio 1.3 (0.8-1.1) Medications Current Medications Aspirin (Children'S Aspirin) 324 mg 1X ONCE PO Last administered on 06/02/17 17:58; Start 06/02/17 at 17:30; Stop 06/02/17 at 17:32; Status DC Nitroglycerin (Nitrostat) 0.4 mg PRN Q5MIN PRN SL CP RATING > 1/10; Start 06/02 at 17:30; Stop 06/03/17 at 17:29; Status DC Fentanyl Citrate (Fentanyl 2ml Vial) 25 mcg PRN Q15MIN PRN IV PAIN GREATER THAN 3/10 Last administered on 06/02/17 17:59; Start 06/02/17 at 17:30; Stop at 17:29; Status DC Heparin Sodium (Porcine) (Heparin Sodium) 4,000 unit 1X ONCE IV ; Start at 21:00; Stop 06/02/17 at 21:21; Status DC Heparin Sodium/ Dextrose 500 ml @ 0 mls/hr CONT PRN IV SEE I/O RECORD; Start at 21:00; Stop 06/02/17 at 21:21; Status DC Heparin Sodium (Porcine) (Heparin Sodium) 1,850 unit PRN Q6HRS PRN IV FOR UFH LEVEL LESS THAN 0.2; Start 06/02/17 at 21:00; Status Cancel Nitroglycerin/ Dextrose 250 ml @ 0 mls/hr 1X ONCE IV Last administered on 06/02 20:45; Start 06/02/17 at 20:45; Stop 06/02/17 at 20:54; Status DC Morphine Sulfate 2 mg PRN Q2HR PRN IV PAIN Last administered on 06/02/17 23:32 ; Start 06/02/17 at 20:45 Aspirin (Children'S Aspirin) 81 mg HS PO Last administered on 06/02/17 21:00; Start 06/02/17 at 21:00; Stop 06/03/17 at 15:27; Status DC Dutasteride (Avodart) 0.5 mg DAILY PO Last administered on 06/04/17 09:02; Start 06/03/17 at 09:00 Levothyroxine Sodium (Synthroid) 50 mcg DAILYAC PO Last administered on 07:40; Start 06/03/17 at 07:30 Tamsulosin HCl (Flomax) 0.4 mg HS PO Last administered on 06/03/17 21:17; Start 06/02/17 at 21:00 Calcium Carbonate/ Glycine (Oscal) 500 mg DAILY PO Last administered on 09:02; Start 06/03/17 at 09:00 Atorvastatin Calcium (Lipitor) 20 mg QHS PO Last administered on 06/03/17 21: 17; Start 06/02/17 at 21:00; Stop 06/04/17 at 10:41; Status DC Fish Oil (Fish Oil) 1,000 mg DAILY PO Last administered on 06/04/17 09:02; Start 06/03/17 at 09:00 Pantoprazole Sodium (Protonix) 40 mg DAILYAC PO Last administered on 06/04/17 07:41; Start 06/03/17 at 07:30 Acetaminophen/ Hydrocodone Bitart (Lortab 5/325) 1 tab PRN Q6HRS PRN PO PAIN Last administered on 06/03/17 08:13; Start 06/02/17 at 21:00 Metoprolol Tartrate (Lopressor) 12.5 mg BID PO Last administered on 06/04/17 09:03; Start 06/02/17 at 21:00; Stop 06/04/17 at 09:55; Status DC Ondansetron HCl (Zofran) 4 mg PRN Q6HRS PRN IV NAUSEA/VOMITING Last administered on 06/03/17 10:07; Start 06/03/17 at 10:00 Heparin Sodium/ Dextrose 500 ml @ 0 mls/hr CONT PRN IV SEE I/O RECORD; Start at 10:15 Heparin Sodium (Porcine) (Heparin Sodium) 1,900 unit PRN Q6HRS PRN IV FOR UFH LEVEL LESS THAN 0.2; Start 06/03/17 at 10:15 Heparin Sodium/ Sodium Chloride 500 ml @ As Directed STK-MED ONCE .ROUTE ; Start 06/03/17 at 13:15; Stop 06/03/17 at 13:18; Status DC Lidocaine HCl 20 ml STK-MED ONCE .ROUTE ; Start 06/03/17 at 13:15; Stop at 13:18; Status DC Iodixanol (Visipaque 320) 100 ml STK-MED ONCE .ROUTE ; Start 06/03/17 at 13:15; Stop 06/03/17 at 13:18; Status DC Nitroglycerin (Nitroglycerin) 200 mcg 1X ONCE IART ; Start 06/03/17 at 13:45; Stop 06/03/17 at 13:49; Status DC Verapamil HCl (Verapamil) 2.5 mg 1X ONCE IART ; Start 06/03/17 at 13:45; Stop 06/03/17 at 13:49; Status DC Heparin Sodium (Porcine) (Heparin Sodium) 2,500 unit 1X ONCE IART ; Start 06/03 at 13:45; Stop 06/03/17 at 13:49; Status DC Heparin Sodium/ Sodium Chloride 1,000 unit 1X ONCE IART Last administered on 15:12; Start 06/03/17 at 13:45; Stop 06/03/17 at 13:49; Status DC Midazolam HCl (Versed) 2 mg 1X ONCE IV Last administered on 06/03/17 15:10; Start 06/03/17 at 13:45; Stop 06/03/17 at 13:49; Status DC Fentanyl Citrate (Fentanyl 2ml Vial) 100 mcg 1X ONCE IV Last administered on 15:10; Start 06/03/17 at 13:45; Stop 06/03/17 at 13:49; Status DC Iodixanol (Visipaque 320) 100 ml 1X ONCE IART Last administered on 06/03/17 15:09; Start 06/03/17 at 13:45; Stop 06/03/17 at 13:49; Status DC Lidocaine HCl 20 ml 1X ONCE IJ Last administered on 06/03/17 15:09; Start 09/09 at 13:45; Stop 06/03/17 at 13:49; Status DC Nitroglycerin (Nitroglycerin) 200 mcg STK-MED ONCE .ROUTE ; Start 06/03/17 at 13 :51; Stop 06/03/17 at 13:54; Status DC Verapamil HCl (Verapamil) 5 mg STK-MED ONCE .ROUTE ; Start 06/03/17 at 13:51; Stop 06/03/17 at 13:54; Status DC Heparin Sodium (Porcine) (Heparin Sodium) 10,000 unit STK-MED ONCE .ROUTE ; Start 06/03/17 at 13:51; Stop 06/03/17 at 13:54; Status DC Fentanyl Citrate (Fentanyl 2ml Vial) 100 mcg STK-MED ONCE .ROUTE ; Start at 13:52; Stop 06/03/17 at 13:54; Status DC Midazolam HCl (Versed) 2 mg STK-MED ONCE .ROUTE ; Start 06/03/17 at 13:52; Stop 06/03/17 at 13:54; Status DC Bivalirudin (Angiomax) 250 mg STK-MED ONCE IV ; Start 06/03/17 at 14:22; Stop at 14:25; Status DC Iodixanol (Visipaque 320) 100 ml STK-MED ONCE .ROUTE ; Start 06/03/17 at 14:27; Stop 06/03/17 at 14:31; Status DC Bivalirudin (Angiomax) 250 mg 1X ONCE IV Last administered on 06/03/17 15:10 ; Start 06/03/17 at 14:45; Stop 06/03/17 at 14:46; Status DC Clopidogrel Bisulfate (Plavix) 600 mg 1X ONCE PO Last administered on 15:12; Start 06/03/17 at 14:45; Stop 06/03/17 at 14:46; Status DC Aspirin ([place] Aspirin) 325 mg 1X ONCE PO Last administered on 06/03/17 15:10 ; Start 06/03/17 at 14:45; Stop 06/03/17 at 14:46; Status DC Aspirin ([place] Aspirin) 325 mg STK-MED ONCE .ROUTE ; Start 06/03/17 at 14:59; Stop 06/03/17 at 15:01; Status DC Clopidogrel Bisulfate (Plavix) 75 mg STK-MED ONCE .ROUTE ; Start 06/03/17 at 14: 59; Stop 06/03/17 at 15:01; Status DC Sodium Chloride 1,000 ml @ 75 mls/hr [id number] IV Last administered on 05:00; Start 06/03/17 at 15:24 Acetaminophen (Tylenol) 650 mg PRN Q6HRS PRN PO MILD PAIN / TEMP; Start at 15:30 Nitroglycerin (Nitrostat) 0.4 mg PRN Q5MIN PRN SL CHEST PAIN; Start 06/03/17 at 15:30 Clopidogrel Bisulfate (Plavix) 75 mg DAILYWBKFT PO Last administered on 09:02; Start 06/04/17 at 08:00 Aspirin (Ecotrin) 81 mg DAILYWBKFT PO Last administered on 06/04/17 09:02; Start 06/04/17 at 08:00 Atorvastatin Calcium (Lipitor) 10 mg QHS PO ; Start 06/04/17 at 21:00 Metoprolol Tartrate (Lopressor) 25 mg BID PO ; Start 06/04/17 at 21:00 Magnesium Sulfate/ Dextrose 50 ml @ 25 mls/hr 1X ONCE IV Last administered on 06/04/17 11:19; Start 06/04/17 at 11:00; Stop 06/04/17 at 12:59 Warfarin Sodium (Coumadin) 10 mg 1X ONCE PO ; Start 06/04/17 at 16:00; Stop 10/09 at 16:01 Warfarin Sodium (Coumadin Per Physician) 1 each PRN DAILY PRN MC SEE COMMENTS; Start 06/04/17 at 11:00 Active Scripts Active [Metoprolol Tartrate] 25 MG Tablet 12.5 Mg PO BID 30 Days [Hydrocodone/Acetaminophen] 1 TAB Tablet 1 Tab PO PRN Q6HRS PRN Reported Warfarin Sodium 5 Mg Tablet 1 Tab PO TUE WED FRI SAT SUN Warfarin Sodium 7.5 Mg Tablet 7.5 Mg PO TUESDAY, TUESDAY Omeprazole 40 Mg Capsule.dr 40 Mg PO DAILY Tamsulosin Hcl 0.4 Mg Cap.er.24h 1 Cap PO HS Lovastatin 20 Mg Tablet 80 Mg PO HS Aspirin 81 Mg Tab.chew 81 Mg PO HS Calcium (Calcium Carbonate) 500 Mg Tab.chew 600 Mg PO DAILY Fish Oil ([place]-3 Fatty Acids) 500 Mg Capsule.dr 500 Mg PO DAILY Avodart (Dutasteride) 0.5 Mg Capsule 1 Cap PO DAILY Levothyroxine Sodium 88 Mcg Tablet 50 Mcg PO DAILYAC Vitals/I & O Vital Sign - Last 24 Hours 06/03/17 06/03/17 06/03/17 06/03/17 15:00 15:01 15:10 19:19 Temp 97.4 97.4 Pulse 61 67 Resp 18 14 21 B/P (MAP) 151/77 (101) Pulse Ox 99 98 98 O2 Delivery Nasal Cannula Nasal Cannula Nasal Cannula Nasal Cannula O2 Flow Rate 2.0 2.0 2.0 2.0 06/03/17 06/03/17 06/03/17 06/04/17 19:38 21:17 22:39 02:01 Temp 97.6 97.8 97.4 97.6 97.8 97.4 Pulse 66 66 73 66 Resp 18 20 20 B/P (MAP) 129/75 (93) 129/75 135/82 (99) 145/87 (106) Pulse Ox 98 97 98 O2 Delivery Nasal Cannula Nasal Cannula Nasal Cannula O2 Flow Rate 2.0 2.0 2.0 06/04/17 06/04/17 06/04/17 06/04/17 07:30 07:40 09:03 11:00 Temp 97.5 98.5 97.5 98.5 Pulse 75 79 71 Resp 18 18 B/P (MAP) 118/74 (89) 124/72 108/64 (79) Pulse Ox 98 97 O2 Delivery Nasal Cannula Nasal Cannula Nasal Cannula O2 Flow Rate 2.0 2.0 2.0 Intake and Output 06/03/17 06/03/17 06/04/17 15:00 23:00 07:00 Intake Total 200 ml 200 ml Output Total 250 ml 450 ml Balance -50 ml -250 ml CASTLE,NIAL K III DO Jun 04, 2017 12:12
[2017-06-04] MEDS ORDERED: METO25TA4 PO (12:54)
[2017-06-04] MEDS ORDERED: CLOP75TA PO (12:55)
[2017-06-04] MEDS ORDERED: WARFARIN 10 MG TABLET. PO ONE (16:00)
[2017-06-04] MEDS ORDERED: ATORVASTATIN CALCIUM 10 MG TABLET. PO SCH (21:00)
[2017-06-04] MEDS ORDERED: METOPROLOL TART IMMED RELEASE 25 MG TABLET. PO SCH (21:00)
== END 2017-06-04 14:40 | disposition home or self-care (01) | DRG 247 ==
LOC: ER 17:05 → 2 SOUTH 18:17
PROVIDERS: ADMIT Internal Medicine; ATTEND Internal Medicine
PROC: 027135Z Dilation of Coronary Artery, Two Arteries with Two Drug-eluting Intraluminal Devices, Percutaneous Approach (ICD-10-PCS; principal; 2017-06-03)
PROC: 4A023N7 Measurement of Cardiac Sampling and Pressure, Left Heart, Percutaneous Approach (ICD-10-PCS; 2017-06-03)
PROC: B2111ZZ Fluoroscopy of Multiple Coronary Arteries using Low Osmolar Contrast (ICD-10-PCS; 2017-06-03)
PROC: B2181ZZ Fluoroscopy of Left Internal Mammary Bypass Graft using Low Osmolar Contrast (ICD-10-PCS; 2017-06-03)
DX: I21.4 Non-ST elevation (NSTEMI) myocardial infarction (principal); I10 Essential (primary) hypertension; E78.5 Hyperlipidemia, unspecified; I25.110 Atherosclerotic heart disease of native coronary artery with unstable angina pectoris; E03.9 Hypothyroidism, unspecified; K21.9 Gastro-esophageal reflux disease without esophagitis; E78.00 Pure hypercholesterolemia, unspecified; Z96.659 Presence of unspecified artificial knee joint; Z95.1 Presence of aortocoronary bypass graft; Z95.2 Presence of prosthetic heart valve; Z79.01 Long term (current) use of anticoagulants; Z88.0 Allergy status to penicillin; Z82.49 Family history of ischemic heart disease and other diseases of the circulatory system; Z90.49 Acquired absence of other specified parts of digestive tract
CPT/HCPCS: 36415; 71010; 80048; 80076; 83690; 83735; 83880; 84484; 85027; 85610; 85730; 92928; 93005; 93454; 96374; C1713; C1725; C1769; C1771; C1887; C1892; G0269; J0583; J1644; J2250; J2270; J2405; J3010; J3490; J7060; 99285-25; J2001

== ENCOUNTER 2017-06-07 23:04 | Inpatient (IN) | payer OTHER ==
[~2017-06-07] VITALS: Ht 180.3 cm; Wt 80.3 kg
[~2017-06-07 23:04] MED LIST changes: +CLOP75TA PO; +METO25TA4 PO
[2017-06-07 23:22] LABS: BASO # 0.1 x10^3/uL (0.0-0.2); BASO % 1 % (0-3); EOS % 2 % (0-3); HEMATOCRIT 38.2 % (39.0-53.0); HEMOGLOBIN 12.6 g/dL (13.0-17.5); LYMPH # 3.5 x10^3/uL (1.0-4.8); LYMPH % 43 % (24-48); MEAN CORPUSCULAR HEMOGLOBIN 29 pg (25-35); MEAN CORPUSCULAR HGB CONC 33 g/dL (31-37); MEAN CORPUSCULAR VOLUME 89 fL (79-100); MONO % 8 % (0-9); NEUT % 46 % (31-73); PLATELET COUNT 164 x10^3/uL (140-400); RED CELL DISTRIBUTION WIDTH 14.7 % (11.5-14.5)
[2017-06-07] MEDS ORDERED: ACET325T9 PO (23:27)
[2017-06-07 23:35] LABS: CALCIUM 8.9 mg/dL (8.5-10.1); CREATININE 1.7 mg/dL (0.7-1.3); GFR 38.1; POTASSIUM 4.2 mmol/L (3.5-5.1)
[2017-06-07 23:41] LABS: ALBUMIN 3.6 g/dL (3.4-5.0); DIRECT BILIRUBIN 0.1 mg/dL (0.0-0.2); TOTAL BILIRUBIN 0.4 mg/dL (0.2-1.0); TOTAL PROTEIN 6.1 g/dL (6.4-8.2)
[2017-06-07] MEDS ORDERED: HEPARIN 25,000UTS/500ML PREMIX 500 ML IV ONE (23:45)
[2017-06-07] MEDS ORDERED: HEPARIN for IV BOLUS 10,000 UNIT/10 ML VIAL. IV ONE (23:45)
[2017-06-07 23:53] LABS: INR 1.7 (0.8-1.1); PROTHROMBIN TIME PATIENT 19.3 SEC (11.7-14.0)
[2017-06-08] VITALS (31 sets, daily range): BP systolic 13–147; BP diastolic 73–96
--- NOTE | 2017-06-08 00:03 | RAD ---
Examination: CT head without contrast HISTORY: History of confusion, difficulty holding still COMPARISON: 11/18/2006 TECHNIQUE: Axial CT images of the head was performed without contrast. Exposure: One or more of the following individualized dose reduction techniques were utilized for this examination: 1. Automated exposure control 2. Adjustment of the mA and/or kV according to patient size 3. Use of iterative reconstruction technique FINDINGS: There is no evidence of midline shift. Moderate bilateral periventricular white matter hypodensities likely chronic small vessel ischemic disease. There is a 5.5 mm hyperdensity identified in the extraaxial region of the left temporal lobe grossly similar to prior exam probably a small meningioma. The visualized lateral ventricles, third ventricle, fourth ventricle appropriate for age. The basal cisterns aren't effaced. Visualized paranasal sinuses, mastoid air cells are clear. IMPRESSION: 1. No acute intracranial findings. 2. 5.5 mm hyperdensity identified in the extra-axial region of the left temporal lobe probably a small meningioma, unchanged since prior exam. Electronically signed by: Elgin Graves MD (06/08/2017 12:00 AM) [facility]
[2017-06-08] MEDS ORDERED: ONDANSETRON PF 4 MG/2 ML VIAL. IV PRN (00:15)
[2017-06-08] MEDS ORDERED: HALOPERIDOL LACTATE 5 MG/ML VIAL. IM ONE ×2 (00:15→00:45)
--- NOTE | 2017-06-08 01:23 | PHYS DOC ---
Past Medical History Past Medical History: GERD, High Cholesterol, Hypothyroid, [place] Past Surgical History: Appendectomy, Cholecystectomy, Knee Replacement Additional Past Surgical Histo: OPEN HEART SURGERY-AORTIC VALVE REPLACEMENT, COLON SURGERY, STENT PLACEMENT Alcohol Use: None Drug Use: None Adult General Chief Complaint Chief Complaint: CHEST PAIN HPI HPI 87-year-old male presenting to the emergency department today with chest pain. Recently the patient had stenting placed in his RCA on the . He has a history of CABGs well. His pain is a pressure nonradiating moderate intermittent and without alleviating factors. He arrives today by EMS with associated shortness of breath and worsening confusion. Review of systems is negative for abdominal pain vomiting fevers or chills. All other review of systems is negative unless otherwise noted in history of present illness. ED course: 87-year-old male presenting to the emergency department with chest pain. Patient was hypoxic in the emergency room and placed on nasal cannula which improved his saturations. He appeared to be in delirium; patient is confused. He is alert however. Patient opens his eyes spontaneously. EKG obtained at 230. EKG was compared to previous EKGs on June 02 at 2058 and on June 02 at 1919. When compared to previous EKG on June 022058 patient is similar ST depression to previous. When compared to previous EKG on June 021919. EKG does not show similar ST depression. Patient does not have ST elevation on EKG at [address] depression, a posterior EKG was obtained. Because of patient's confusion, it took a little bit of time to get this EKG however it was ordered directly after the initial EKG. EKG at [address] elevation in the lateral leads in lead V7 V8 and V9. Because of the patient's symptomatology and EKGs I discussed the case with Dr. Campbell multiple times. I discussed the case initially at 2320. I updated him on the patient's previous angiography and stenting. I explained my concerns for the patient's EKG and asked him to make a decision on code STEMI page; whether we should call this patient a posterior STEMI based on this EKG that I was reviewed with him. Dr. Campbell ordered that the patient be placed nothing by mouth after midnight and initiated on heparin and aspirin. After receiving second EKG that was obtained at 2[address] on [place] [address] elevation in the posterior leads I again discussed the case with Dr. Campbell communicating my concern for possible RCA occlusion/posterior STEMI. This discussion occurred within 10-15 minutes after EKG was obtained. It was explicitly communicated that the patient's troponin was 15. Dr. Campbell communicates verbal understanding. Dr. Campbell continues to recommend medical management without emergent percutaneous coronary intervention. Repeat EKG obtained at 00 48 continues to show patient's ST depression in the anterior leads. Repeat posterior EKG at [address] elevation in the posterior leads of V7, V8, V9. The patient was then admitted to our intensive care unit. I also discussed the case with Dr. Yip at 0015 communicating my assessment of the patient. The patient did have to receive a few doses of low-dose Haldol for acute delirium likely secondary to ACS. The patient was then admitted for further evaluation workup and care. Repeat troponins ordered. Review of Systems Review of Systems SEE ABOVE. Current Medications Current Medications Current Medications Medications (Trade) Dose Ordered Sig/Kristina Start Time Stop Time Status Last Admin Dose Admin Heparin Sodium (Porcine) (Heparin Sodium) 4,000 unit 1X ONCE 06/07/17 23:45 06/07/17 23:46 DC 06/08/17 00:12 4,000 UNIT Heparin Sodium/ Dextrose 500 ml @ 0 mls/hr 1X ONCE 06/07/17 23:45 06/07/17 23:46 DC 06/08/17 00:13 17.4 MLS/HR Allergies Allergies Allergies Coded Allergies Type Severity Reaction Last Updated Verified amoxicillin Allergy Intermediate 03/10/15 Yes Physical Exam Physical Exam SEE ABOVE Constitutional: Well developed, well nourished, and appears to have agitation secondary to delirium. HENT: Normocephalic, atraumatic, bilateral external ears normal, oropharynx moist, no oral exudates, nose normal. [] Eyes: PERRLA, EOMI, conjunctiva normal, no discharge. [] Neck: Normal range of motion, no tenderness, supple, no stridor. [] Cardiovascular:Heart rate regular rhythm, no murmur [] Lungs & Thorax: Bilateral breath sounds clear to auscultation [] Abdomen: Bowel sounds normal, soft, no tenderness, no masses, no pulsatile masses. [] Skin: Warm, dry, no erythema, no rash. [] Back: No tenderness, no CVA tenderness. [] Extremities: No tenderness, no cyanosis, no clubbing, ROM intact, no edema. [] Neurologic: Alert and oriented X 3, normal motor function, normal sensory function, no focal deficits noted. [] Psychologic: Affect normal, judgement normal, mood normal. [] Current Patient Data Vital Signs Vital Signs Date Time Temp Pulse Resp B/P (MAP) Pulse Ox O2 Delivery O2 Flow Rate FiO2 06/08/17 00:00 104 97 Nasal Cannula 4.0 06/07/17 23:45 124/84 (97) 06/07/17 23:18 99.0 36 99.0 Lab Values Laboratory Tests Test 06/07/17 23:13 06/07/17 23:34 White Blood Count 8.0 x10^3/uL (4.0-11.0) Red Blood Count 4.30 x10^6/uL (4.30-5.70) Hemoglobin 12.6 g/dL (13.0-17.5) L Hematocrit 38.2 % (39.0-53.0) L Mean Corpuscular Volume 89 fL (79-100) Mean Corpuscular Hemoglobin 29 pg (25-35) Mean Corpuscular Hemoglobin Concent 33 g/dL (31-37) Red Cell Distribution Width 14.7 % (11.5-14.5) H Platelet Count 164 x10^3/uL (140-400) Neutrophils (%) (Auto) 46 % (31-73) Lymphocytes (%) (Auto) 43 % (24-48) Monocytes (%) (Auto) 8 % (0-9) Eosinophils (%) (Auto) 2 % (0-3) Basophils (%) (Auto) 1 % (0-3) Neutrophils # (Auto) 3.7 x10^3uL (1.8-7.7) Lymphocytes # (Auto) 3.5 x10^3/uL (1.0-4.8) Monocytes # (Auto) 0.7 x10^3/uL (0.0-1.1) Eosinophils # (Auto) 0.1 x10^3/uL (0.0-0.7) Basophils # (Auto) 0.1 x10^3/uL (0.0-0.2) Prothrombin Time 19.3 SEC (11.7-14.0) H Prothrombin Time INR 1.7 (0.8-1.1) H Sodium Level 143 mmol/L (136-145) Potassium Level 4.2 mmol/L (3.5-5.1) Chloride Level 107 mmol/L (98-107) Carbon Dioxide Level 23 mmol/L (21-32) Anion Gap 13 (6-14) Blood Urea Nitrogen 31 mg/dL (8-26) H Creatinine 1.7 mg/dL (0.7-1.3) H Estimated GFR (Cockcroft-Gault) 38.1 Glucose Level 155 mg/dL (70-99) H Calcium Level 8.9 mg/dL (8.5-10.1) Total Bilirubin 0.4 mg/dL (0.2-1.0) Direct Bilirubin 0.1 mg/dL (0.0-0.2) Aspartate Amino Transferase (AST) 39 U/L (15-37) H Alanine Aminotransferase (ALT) 21 U/L (16-63) Alkaline Phosphatase 82 U/L (46-116) Troponin I Quantitative 15.325 ng/mL (0.000-0.055) PB-Uta-F-Type Natriuretic Peptide 3704 pg/mL (0-449) H Total Protein 6.1 g/dL (6.4-8.2) L Albumin 3.6 g/dL (3.4-5.0) Lipase 237 U/L (73-393) Glucose (Fingerstick) 129 mg/dL (70-99) H Laboratory Tests 06/07/17 23:13 Laboratory Tests 06/07/17 23:13 EKG EKG [] Radiology/Procedures Radiology/Procedures [] Course & Med Decision Making Course & Med Decision Making Pertinent Labs and Imaging studies reviewed. (See chart for details) [] Dragon Disclaimer Dragon Disclaimer This electronic medical record was generated, in whole or in part, using a voice recognition dictation system. Departure Departure Impression: Primary Impression: ACS (acute coronary syndrome) Additional Impressions: Chest pain NSTEMI (non-ST elevated myocardial infarction) Disposition: ADMITTED INPATIENT Admitting Physician: Other Condition: IMPROVED Referrals: JEY SHAFER Jr, MD (PCP) Critical Care Time Critical care time was [40] minutes exclusive of procedures. Time was spent evaluating the patient, evaluating the patient's EKGs, reviewing the patient's blood work, discussing with the general engineer, ordering the administration of antiplatelet and anticoagulants, documenting and reassessing the patient. Problem Qualifiers AIYANA FISHMAN MD Jun 08, 2017 01:23
[2017-06-08] MEDS: MORPHINE SULFATE 4 MG/ML DISP.SYRIN. IV PRN ×6 (01:45→18:16)
[2017-06-08] MEDS ORDERED: HALOPERIDOL LACTATE 5 MG/ML VIAL. IVP PRN (02:00)
[2017-06-08 06:28] LABS: BASO % 0 % (0-3); EOS % 0 % (0-3); HEMATOCRIT 36.9 % (39.0-53.0); HEMOGLOBIN 12.6 g/dL (13.0-17.5); LYMPH % 12 % (24-48); MEAN CORPUSCULAR HEMOGLOBIN 30 pg (25-35); MEAN CORPUSCULAR HGB CONC 34 g/dL (31-37); MEAN CORPUSCULAR VOLUME 87 fL (79-100); MONO % 6 % (0-9); NEUT % 82 % (31-73); PLATELET COUNT 129 x10^3/uL (140-400); RED BLOOD COUNT 4.25 x10^6/uL (4.30-5.70); RED CELL DISTRIBUTION WIDTH 14.5 % (11.5-14.5); WHITE BLOOD COUNT 8.9 x10^3/uL (4.0-11.0)
[2017-06-08 06:48] LABS: ALBUMIN 3.8 g/dL (3.4-5.0); ALBUMIN/GLOBULIN RATIO 1.7 (1.0-1.7); CREATININE 1.8 mg/dL (0.7-1.3); GFR 35.7; POTASSIUM 4.6 mmol/L (3.5-5.1); TOTAL BILIRUBIN 0.5 mg/dL (0.2-1.0)
[2017-06-08] MEDS ORDERED: HEPARIN for IV BOLUS 10,000 UNIT/10 ML VIAL. IV ONE (07:00)
[2017-06-08] MEDS ORDERED: HEPARIN for IV BOLUS 10,000 UNIT/10 ML VIAL. IV PRN ×2 (07:00→20:00)
[2017-06-08] MEDS ORDERED: HEPARIN 25,000UTS/500ML PREMIX 500 ML IV PRN ×2 (07:00→20:00)
--- NOTE | 2017-06-08 07:07 | EKG ---
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
--- NOTE | 2017-06-08 07:20 | RAD ---
Portable chest, 06/07/2017: History: Chest pain Comparison is made to a study from 06/02/2017. A prosthetic aortic valve is again noted. The heart is at the upper limits of normal in size. There is calcific plaquing of the aorta. The pulmonary vascularity is normal. No pulmonary infiltrates are seen. There is no evidence of pleural fluid. IMPRESSION: No acute cardiopulmonary abnormality is detected.
[2017-06-08] MEDS ORDERED: NITROGLYCERIN PREMIX 250 ML IV PRN (08:45)
--- NOTE | 2017-06-08 09:40 | PDOC ---
CARDIO Progress Notes Date and Time Date of Service 06/08/17 Time of Evaluation 0935 Subjective Subjective: No shortness of breath, No Palpitations, Other (mild left chest pain) Vitals Vitals Vital Signs Date Time Temp Pulse Resp B/P (MAP) Pulse Ox O2 Delivery O2 Flow Rate FiO2 06/08/17 08:36 15 98 Nasal Cannula 3.0 06/08/17 06:00 92 125/89 (101) 06/08/17 04:00 97.7 97.7 Weight Weight [ ] Input and Output Intake and Output Intake and Output 06/08/17 07:00 Intake Total 86 ml Balance 86 ml Intake Oral 0 ml IV Total 86 ml Laboratory Labs Laboratory Tests Test 06/07/17 23:13 06/07/17 23:34 06/08/17 05:45 White Blood Count 8.0 x10^3/uL (4.0-11.0) 8.9 x10^3/uL (4.0-11.0) Red Blood Count 4.30 x10^6/uL (4.30-5.70) 4.25 x10^6/uL (4.30-5.70) Hemoglobin 12.6 g/dL (13.0-17.5) 12.6 g/dL (13.0-17.5) Hematocrit 38.2 % (39.0-53.0) 36.9 % (39.0-53.0) Mean Corpuscular Volume 89 fL (79-100) 87 fL (79-100) Mean Corpuscular Hemoglobin 29 pg (25-35) 30 pg (25-35) Mean Corpuscular Hemoglobin Concent 33 g/dL (31-37) 34 g/dL (31-37) Red Cell Distribution Width 14.7 % (11.5-14.5) 14.5 % (11.5-14.5) Platelet Count 164 x10^3/uL (140-400) 129 x10^3/uL (140-400) Neutrophils (%) (Auto) 46 % (31-73) 82 % (31-73) Lymphocytes (%) (Auto) 43 % (24-48) 12 % (24-48) Monocytes (%) (Auto) 8 % (0-9) 6 % (0-9) Eosinophils (%) (Auto) 2 % (0-3) 0 % (0-3) Basophils (%) (Auto) 1 % (0-3) 0 % (0-3) Neutrophils # (Auto) 3.7 x10^3uL (1.8-7.7) 7.3 x10^3uL (1.8-7.7) Lymphocytes # (Auto) 3.5 x10^3/uL (1.0-4.8) 1.0 x10^3/uL (1.0-4.8) Monocytes # (Auto) 0.7 x10^3/uL (0.0-1.1) 0.5 x10^3/uL (0.0-1.1) Eosinophils # (Auto) 0.1 x10^3/uL (0.0-0.7) 0.0 x10^3/uL (0.0-0.7) Basophils # (Auto) 0.1 x10^3/uL (0.0-0.2) 0.0 x10^3/uL (0.0-0.2) Prothrombin Time 19.3 SEC (11.7-14.0) Prothromb Time International Ratio 1.7 (0.8-1.1) Sodium Level 143 mmol/L (136-145) 142 mmol/L (136-145) Potassium Level 4.2 mmol/L (3.5-5.1) 4.6 mmol/L (3.5-5.1) Chloride Level 107 mmol/L (98-107) 107 mmol/L (98-107) Carbon Dioxide Level 23 mmol/L (21-32) 22 mmol/L (21-32) Anion Gap 13 (6-14) 13 (6-14) Blood Urea Nitrogen 31 mg/dL (8-26) 32 mg/dL (8-26) Creatinine 1.7 mg/dL (0.7-1.3) 1.8 mg/dL (0.7-1.3) Estimated GFR (Cockcroft-Gault) 38.1 35.7 Glucose Level 155 mg/dL (70-99) 181 mg/dL (70-99) Calcium Level 8.9 mg/dL (8.5-10.1) 9.0 mg/dL (8.5-10.1) Total Bilirubin 0.4 mg/dL (0.2-1.0) 0.5 mg/dL (0.2-1.0) Direct Bilirubin 0.1 mg/dL (0.0-0.2) Aspartate Amino Transf (AST/SGOT) 39 U/L (15-37) 69 U/L (15-37) Alanine Aminotransferase (ALT/SGPT) 21 U/L (16-63) 26 U/L (16-63) Alkaline Phosphatase 82 U/L (46-116) 76 U/L (46-116) Troponin I Quantitative 15.325 ng/mL (0.000-0.055) 18.786 ng/mL (0.000-0.055) LH-Xfi-P-Type Natriuretic Peptide 3704 pg/mL (0-449) Total Protein 6.1 g/dL (6.4-8.2) 6.0 g/dL (6.4-8.2) Albumin 3.6 g/dL (3.4-5.0) 3.8 g/dL (3.4-5.0) Lipase 237 U/L (73-393) Glucose (Fingerstick) 129 mg/dL (70-99) Heparin Anti-Xa Act, Unfractionated 0.36 IU/mL (0.30-0.70) BUN/Creatinine Ratio 18 (6-20) Albumin/Globulin Ratio 1.7 (1.0-1.7) Physical Exam HEENT: Neck Supple W Full Motion Chest: Symmetric LUNGS: Clear to Auscultation Heart: S1S2, RRR, murmurs (2/6 systolic murmur), other (tele SR with PVC's ) Abdomen: Soft N/T Extremities: No Edema, No Calf Tenderness Neurology: alert, follow commands, other (drowsy) Assessment Assessment This is an 87 yo male who underwent cardiac cath last week which revealed a long 90-95% stenosis involving ungrafted RCA, patent MOSES to LAD with 80% stenosis in the [place] LAD, and 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 Patient underwent successful PCI/NIGEL to the RCA and [place] LAD via MOSES graft. Tolerated procedure and was monitor overnight without acute complications. Patient discharged on DAPT with ASA and Plavix. Patient returned to the emergency department overnight with complaints of chest pain. Patient reports sudden onset fo chest pain last night following showering. Located in his left chest. Describes as heaviness. Radiated through to his back. Pain would not relieved so patient came into the ED for further evaluation and treatment. Associated with SOA. No dizziness, diaphoresis, palpitations, or nausea/vomiting. Family reports he was very confused and mumbling. CT head without acute findings. Mentation returned to baseline this morning. Chest pain mildly improved with morphine. No exacerbating factors. Reports compliance with medications including DAPT. Assessment 1. NSTEMI 2. CAD s/p previous CABG and PCI/NIGEL to the RCA and LAD 3. S/p aortic mechanical valve replacement. Recent Echo reveals normal valvular function. on warfarin therapy with subtherapeutic INR at 1.7 4. Hypertension; controlled 5. Hyperlipidemia. LDL 79. statin therapy. 6. ES; IVF initiated Recommendations Continue heparin and nitro gtt. Morphine PRN Given symptomatology and presentation; will proceed with cardiac catheterization for definitive evaluation. R/b/a d/w patient and family and are agreeable. D/w primary primer expeditor and drier. Check echo in am. ANNA SEAMAN APRN Jun 08, 2017 09:40
[2017-06-08] MEDS ORDERED: ANTI-COAG MONITOR BY PHARMACY. MC PRN (11:15)
[2017-06-08] MEDS ORDERED: HEPARIN for ARTERIAL LINE 1,500 ML ONE (11:22)
[2017-06-08] MEDS ORDERED: LIDOCAINE 2% 20 ML VIAL. ONE (11:22)
[2017-06-08] MEDS ORDERED: IODIXANOL 320 MG/ML 100 ML VIAL. ONE (11:22)
--- NOTE | 2017-06-08 12:06 | PDOC ---
MODERATE SEDATION ASSESSMENT RISKS/ALTERNATIVES Risks/Alternatives Risks and alternatives of this type of sedation and procedure discussed with: RISK/ALTERNATIVES: Patient H & P ON CHART H & P H & P on chart and reviewed for co-morbid conditions and appropriate labs. H&P ON CHART: Yes STATUS PREG STATUS ASSESSED: N/A MEDS/ALLERGIES REVIEWED Meds/Allergies Reviewed Medications and Allergies including time and route of recently administered narcotics and sedatives. MEDS/ALLERGIES REVIEWED: Yes ASA RATING ASA RATING: II AIRWAY ASSESSMENT Airway Assessment Airway patency, oral function limitations, presence of caps, crowns, dentures, partials, and ability to extend neck assessed. AIRWAY ASSESSMENT: Yes MALLAMPATI SCORE MALLAMPATI SCORE: II PRE-SEDATION ASSESSMENT PRE-SEDATION ASSESSMENT: Yes KIMBERLY BARRIOS MD Jun 08, 2017 12:06
[2017-06-08] MEDS ORDERED: LIDOCAINE 2% 20 ML VIAL. IJ ONE (12:15)
[2017-06-08] MEDS ORDERED: IODIXANOL 320 MG/ML 100 ML VIAL. IART ONE (12:15)
[2017-06-08] MEDS ORDERED: CONTRAST GIVEN MC PRN (12:30)
--- NOTE | 2017-06-08 13:01 | EKG ---
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
--- NOTE | 2017-06-08 13:01 | EKG ---
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
[2017-06-08] MEDS ORDERED: IV NORMAL SALINE 1000ML BAG 1,000 ML IV SCH (13:35)
[2017-06-08] MEDS ORDERED: 0.9 % SODIUM CHLORIDE 10 ML DISP.SYRIN. IV PRN (13:45)
[2017-06-08] MEDS ORDERED: NITROGLYCERIN SUBLINGUAL 0.4 MG BOTTLE OF 25. SL PRN (13:45)
--- NOTE | 2017-06-08 14:30 | CARD ---
APPROVED REPORT Procedures. Selective coronary angiogram. Injection of the MOSES graft. The patient is an 87-year-old male who was admitted to the hospital with episodes of chest pain. He h ad mild increase in troponin. Approximately one week ago he had coronary stents placed to the right c oronary artery and to the LAD post the MOSES anastomosis. Treatment options were discussed the patient and his family. We have decided to proceed with repeat cardiac catheterization. Risks and benefits o f the procedure were discussed with the patient and his family. They have agreed to proceed. After informed consent was obtained the patient was brought to the heart catheterization lab. The are a of the right femoral artery was prepared the usual manner with Betadine, sterile draping and local anesthetic. An 18-gauge needle was used to enter the right femoral artery, a wire placed the 6 Dominican sheath placed over the wire. A 6 Dominican JL4 and then a JL 5 diagnostic catheters were used to engage the left coronary system and sequential injections in various views were obtained. A 6 Dominican JR4 di agnostic catheter was used to engage the right coronary artery and sequential injections in various v iews were obtained. This catheter was then used to engage the left subclavian artery, an exchange wir e placed and a MOSES graft catheter placed. Sequential injections MOSES graft were obtained. The cathet er was then removed. Injection of the sheath showed normal placement. The sheath was removed and seal ed with an Angio-Seal product. The patient was then moved to the holding area. Findings. Hemodynamics. Aortic root pressure of 114/70. Coronaries. Left main. The left main had a distal 25% lesion. Left anterior descending. The LAD had a proximal chronic occlusion. There was diffuse small vessel di sease prior to this. Left circumflex. The left circumflex vasculature showed diffuse small vessel disease. There appeared to be a chronic occlusion of the mid left circumflex vessel. Right coronary artery. Previously placed proximal to mid stents were widely patent. There was distal small vessel disease. Grafts. MOSES graft to the LAD was widely patent. The area of stenting in the LAD was widely patent. <Conclusion> Distal left main lesion of 25%. Patent recently placed stents in the right coronary artery. Patent recently placed stent in the LAD via the MOSES graft. Diffuse small vessel disease as outlined above.
--- NOTE | 2017-06-08 23:36 | ACF ---
Admission Forms Criteria CHEST PAIN Clinical Indications for Admission to Inpatient Care ([place]/check or initial the applicable condition/criteria) Admission is indicated for chest pain and ANY ONE of the following (1)(2)(3)(4)( 5)(6)(7): [X]I. Angina with acute coronary syndrome (Also use Myocardial Infarction or Angina guideline) [ ]II. Hemodynamic instability [ ]III. Respiratory distress [ ]IV. Chest pain indicative of serious diagnosis other than coronary artery disease (e.g., aorticdissection) Extended stay beyond goal length of stay may be needed for(3)(4)(10)(45)(48) [ ]a) Unstable angina [ ]b) Continued suspicion of acute coronary syndrome with inability to complete needed cardiac evaluation (eg, patient clinically unable to undergo stress testing) [ ]c) Myocardial infarction [ ]d) Specific condition diagnosed after evaluation (eg, pulmonary embolism, aortic dissection)(49)(50)(51) The original [facility] content created by [employer] has been revised. The portions of the content which have been revised are identified through the use of italic text, and [facility] has neither reviewed nor approved the modified material. All other unmodified content is copyright [employer]. Please see references footnoted in the original [employer] [facility] edition 2014 Admission Criteria Met?: Yes FRANNIE LOVELACE Jun 08, 2017 23:36
[2017-06-09] VITALS (16 sets, daily range): BP systolic 102–141; BP diastolic 71–87
--- NOTE | 2017-06-09 00:04 | HP ---
ADMIT DATE: 06/08/2017 CHIEF COMPLAINT: Chest pain. HISTORY OF PRESENT ILLNESS: The patient is a pleasant 87-year-old male well known to our service. We just cared for him last week when he was in for coronary stents and a heart attack. Once again, he presents with chest pain, rates it at 10/10. He has associated nausea and weakness. While in the ER, he is noted to have a significantly elevated troponin of 15. It is now bumped up to 18.78. The patient was taken emergently to the chemistry lab instructor where I am here with Dr. Avelar finishing up the cardiac catheterization. PAST MEDICAL HISTORY: GERD, hypertension, hyperlipidemia, hypothyroidism, appendectomy, cholecystectomy, knee replacement, three-vessel bypass, aortic valve surgery, colonic surgery, cardiac stents just within the past couple of weeks. ALLERGIES: AMOXICILLIN. FAMILY HISTORY: Coronary artery disease. SOCIAL HISTORY: Does not drink, smoke or take drugs. MEDICATIONS: Reviewed, please refer to the MRAD. REVIEW OF SYSTEMS: Unobtainable at this time, the patient is somewhat sedated. PHYSICAL EXAMINATION: VITAL SIGNS: Temperature afebrile, pulse 80, respirations 18, blood pressure 117/95. GENERAL: He is somewhat sedated on the cardiac cath table. Dr. Avelar just finished the catheterization. HEART: Shows normal sinus rhythm. LUNGS: Clear. ABDOMEN: Somewhat distended. SKIN: No obvious rashes. LABORATORY DATA: White count 8, hemoglobin 12, platelets 164. Electrolytes: Sodium 142, potassium 4.6, chloride 107, bicarbonate 22, BUN 32, creatinine 1.8, glucose 181. Troponin is 18.78. Cath were reviewed extensively with Dr. Avelar. The right coronary is wide open, but there are two very large stents holding that open. Left anterior descending artery has been bypassed. There is a lot of small vessel disease with some very small collateral flow. The MOSES graft is open. Basically, he has diffuse small vessel disease with a wide open RCA and MOSES graft. ASSESSMENT AND PLAN: Myocardial infarction. The patient's cardiac catheterization really does not show anything else, Dr. Avelar could fix at this time. We are going to go with medical management. We are going to continue his beta blockers, statins, antiplatelet drugs and an SANDOR inhibitor and a diuretic. Continue previous meds, cardiac monitoring. Continue serial enzymes, ICU monitoring. PROGNOSIS: Guarded at best. Total time [address] MERLINE SHI DO DR: GEOVANY/devika JOB#: [id number] / [id number]
[2017-06-09 03:26] LABS: BASO % 0 % (0-3); EOS % 0 % (0-3); HEMATOCRIT 34.9 % (39.0-53.0); HEMOGLOBIN 11.4 g/dL (13.0-17.5); LYMPH % 8 % (24-48); MEAN CORPUSCULAR HEMOGLOBIN 29 pg (25-35); MEAN CORPUSCULAR HGB CONC 33 g/dL (31-37); MEAN CORPUSCULAR VOLUME 89 fL (79-100); MONO % 9 % (0-9); NEUT % 84 % (31-73); PLATELET COUNT 137 x10^3/uL (140-400); RED BLOOD COUNT 3.92 x10^6/uL (4.30-5.70); WHITE BLOOD COUNT 12.8 x10^3/uL (4.0-11.0)
[2017-06-09 03:37] LABS: CALCIUM 9.2 mg/dL (8.5-10.1); CREATININE 1.7 mg/dL (0.7-1.3); GFR 38.1; POTASSIUM 4.2 mmol/L (3.5-5.1)
[2017-06-09] MEDS ORDERED: MAGNESIUM SULFATE 2GM 50 ML IV PRN (08:15)
--- NOTE | 2017-06-09 08:16 | PDOC2 ---
CONSULT Date of Consult Date of Consult DATE: 06/09/17 TIME: 08:04 Reason for Consult Reason for Consult: ^ed Creat Referring Physician Referring Physician: Dr Wiseman Identification/Chief Complaint Chief Complaint CP and ? AMI Problems: Source Source: Chart review, Patient History of Present Illness Reason for Visit: as dictated Past Medical History Cardiovascular: CAD, HTN, Hyperlipidemia, Valve insufficiency Pulmonary: No pertinent hx CENTRAL NERVOUS SYSTEM: Other GI: GERD, Other Hepatobiliary: No pertinent hx Psych: No pertinent hx Musculoskeletal: Osteoarthritis Rheumatologic: No pertinent hx Infectious disease: No pertinent hx Renal/: Benign prostatic enlarg. Endocrine: Hypothyroidism Past Surgical History Past Surgical History: Appendectomy, Cholecystectomy, CABG, Total knee replacement, Other Family History Family History: Coronary Artery Disease Social History ALCOHOL: none Drugs: None Lives: with Family Domestic Violence: Neg Current Problem List Problem List Problems Medical Problems: (1) NSTEMI (non-ST elevated myocardial infarction) Status: Acute Current Medications Current Medications Current Medications Heparin Sodium (Porcine) (Heparin Sodium) 4,000 unit 1X ONCE IV Last administered on 06/08/17 00:12; Start 06/07/17 at 23:45; Stop 06/07/17 at 23:46 ; Status DC Heparin Sodium/ Dextrose 500 ml @ 0 mls/hr 1X ONCE IV Last administered on 00:13; Start 06/07/17 at 23:45; Stop 06/07/17 at 23:46; Status DC Haloperidol Lactate (Haldol) 2 mg 1X ONCE IM Last administered on 06/08/17 00 :07; Start 06/08/17 at 00:15; Stop 06/08/17 at 00:16; Status DC Ondansetron HCl (Zofran) 4 mg PRN Q8HRS PRN IV NAUSEA/VOMITING; Start 06/08/17 at 00:15; Stop 06/09/17 at 00:14; Status DC Morphine Sulfate 2 mg PRN Q2HR PRN IV PAIN Last administered on 06/08/17 18:16 ; Start 06/08/17 at 00:15; Stop 06/09/17 at 00:14; Status DC Haloperidol Lactate (Haldol) 5 mg 1X ONCE IM Last administered on 06/08/17 00 :46; Start 06/08/17 at 00:45; Stop 06/08/17 at 00:50; Status DC Haloperidol Lactate (Haldol) 2 mg PRN Q6HRS PRN IVP AGITATION Last administered on 06/08/17 02:36; Start 06/08/17 at 02:00 Heparin Sodium (Porcine) (Heparin Sodium) 4,000 unit 1X ONCE IV ; Start at 07:00; Stop 06/08/17 at 07:01; Status DC Heparin Sodium/ Dextrose 500 ml @ 0 mls/hr CONT PRN IV SEE I/O RECORD; Start at 07:00 Heparin Sodium (Porcine) (Heparin Sodium) 1,850 unit PRN Q6HRS PRN IV FOR UFH LEVEL LESS THAN 0.2 Last administered on 06/09/17 03:57; Start 06/08/17 at 07: 00 Nitroglycerin/ Dextrose 250 ml @ 0 mls/hr CONT PRN IV SEE I/O RECORD Last administered on 06/08/17 09:04; Start 06/08/17 at 08:45 Info (Anti-Coagulation Monitoring By Pharmacy) 1 each PRN DAILY PRN MC SEE COMMENTS Last administered on 06/08/17 11:06; Start 06/08/17 at 11:15 Lidocaine HCl 20 ml STK-MED ONCE .ROUTE ; Start 06/08/17 at 11:22; Stop at 11:23; Status DC Heparin Sodium/ Sodium Chloride 1,500 ml @ As Directed STK-MED ONCE .ROUTE ; Start 06/08/17 at 11:22; Stop 06/08/17 at 11:23; Status DC Iodixanol (Visipaque 320) 100 ml STK-MED ONCE .ROUTE ; Start 06/08/17 at 11:22; Stop 06/08/17 at 11:23; Status DC Heparin Sodium/ Sodium Chloride 1,000 unit 1X ONCE IART Last administered on 12:50; Start 06/08/17 at 12:15; Stop 06/08/17 at 12:17; Status DC Iodixanol (Visipaque 320) 100 ml 1X ONCE IART Last administered on 06/08/17 12:49; Start 06/08/17 at 12:15; Stop 06/08/17 at 12:17; Status DC Lidocaine HCl 15 ml 1X ONCE IJ Last administered on 8/16/17at 12:49; Start at 12:15; Stop 06/08/17 at 12:17; Status DC Info (Do NOT chart on this entry -- for MONITORING) 1 each PRN DAILY PRN MC SEE COMMENTS; Start 06/08/17 at 12:30; Stop 06/10/17 at 12:29 Sodium Chloride (Normal Saline Flush) 3 ml QSHIFT PRN IV AFTER MEDS AND BLOOD DRAWS; Start 06/08/17 at 13:45 Sodium Chloride 1,000 ml @ 60 mls/hr [id number] IV Last administered on t 13:41; Start 06/08/17 at 13:35; Stop 06/08/17 at 19:34; Status DC Nitroglycerin (Nitrostat) 0.4 mg PRN Q5MIN PRN SL CHEST PAIN; Start 06/08/17 at 13:45 Heparin Sodium/ Dextrose 500 ml @ 0 mls/hr CONT PRN IV SEE I/O RECORD; Start at 20:00; Status UNV Heparin Sodium (Porcine) (Heparin Sodium) 1,850 unit PRN Q6HRS PRN IV FOR UFH LEVEL LESS THAN 0.2; Start 06/08/17 at 20:00; Status UNV Active Scripts Active [Metoprolol Tartrate] 25 MG Tablet 12.5 Mg PO BID 30 Days [Hydrocodone/Acetaminophen] 1 TAB Tablet 1 Tab PO PRN Q6HRS PRN Reported Clopidogrel (Clopidogrel Bisulfate) 75 Mg Tablet 1 Tab PO DAILY Metoprolol Tartrate 25 Mg Tablet 1 Tab PO BID Warfarin Sodium 5 Mg Tablet 1 Tab PO Tue SAT SUN Warfarin Sodium 7.5 Mg Tablet 7.5 Mg PO TUESDAY, TUESDAY Omeprazole 40 Mg Capsule.dr 40 Mg PO DAILY Tamsulosin Hcl 0.4 Mg Cap.er.24h 1 Cap PO HS Lovastatin 20 Mg Tablet 80 Mg PO HS Aspirin 81 Mg Tab.chew 81 Mg PO HS Calcium (Calcium Carbonate) 500 Mg Tab.chew 600 Mg PO DAILY Fish Oil (Hillman-3 Fatty Acids) 500 Mg Capsule.dr 500 Mg PO DAILY Avodart (Dutasteride) 0.5 Mg Capsule 1 Cap PO DAILY Levothyroxine Sodium 88 Mcg Tablet 50 Mcg PO DAILYAC Allergies Allergies: Coded Allergies: amoxicillin (Verified Allergy, Intermediate, 03/10/15) ROS Review of System GEN: no Fevers no Chills EYES: no Visual Complaints ENT: no EN Drainage no Hearing deficiets CVS: no Orthopnea + CP RESP: no SOB no SOLIZ GI: no Nausea no Vomiting : no Dysuria no Urgency HEME: no easy bruising no Palp Ly Nodes NEURO no Focal Weakness no Sz PSYCH: no Suicidal Ideation no Depression SKIN: no Rashes ENDO: no Polyuria or Polydipsia no Hot/Cold Intolerance MU SK: no Arthraigia no Myalgia Physical Exam Physical Exam General Appearance: Awake Alert Oriented x 3 In no Distress Eyes: VIsion Unchanged Conjunctiva Normal EN: No EN Drainage Mucous Memb. moist Neck: no JVD no JVP Supple no Thyromegaly CVS: S1 S2 no audible Murmur No Gallop No Rub no Edema Resp: no Rales no Rhonchi no Acc. Muscle use GI: BAS +ve NO Bruit Non Tender Non Distended : no CVA tenderness; no Suprapubic Tenderness SKIN: no Rashes Breast Exam deferred Mu.Sk: Adequate ROM min age appropriate Muscle Atrophy Heme: Unable to palpate Obvious LAD no palpable Splenomegaly NEURO: Good Strength and Tone Cranial Nerves II - XII grossly intact Psych: not Depressed no Active hallucination Vital Signs Vital Signs Date Time Temp Pulse Resp B/P (MAP) Pulse Ox O2 Delivery O2 Flow Rate FiO2 06/09/17 06:00 103 23 124/80 (95) 98 Nasal Cannula 3.0 06/09/17 04:00 98.1 98.1 Assessment & Plan ES - ? some CAN from previous LHC cannot be ruled out but seems less likely: Current FLuid and E-lyte status does not necessitate emergent need for Dialysis. Will re-evaluate for Dialysis in am CKD III - suspect this is his new baseline given ASVDz as noted on LHC and previous CT scans. Anemia: check Douglas, may need Epogen if hgb < 11. Transfuse as needed to optimize Cardiac perfusion HTN: Current BP meds reviewed. defer to cardio for changes in light of optimization of Med Mx. OK to ct with ARB as he was on it as OP Min NAG MEt acidosis (no abg) - suspect due to IV NS - watch off of same. AMI - no current CP while on NTG gtt Discussed Plan of Care and prognosis etc. at length with family. Labs Labs Laboratory Tests Test 06/07/17 23:13 06/07/17 23:34 06/08/17 02:30 06/08/17 05:45 White Blood Count 8.0 x10^3/uL (4.0-11.0) 8.9 x10^3/uL (4.0-11.0) Red Blood Count 4.30 x10^6/uL (4.30-5.70) 4.25 x10^6/uL (4.30-5.70) Hemoglobin 12.6 g/dL (13.0-17.5) 12.6 g/dL (13.0-17.5) Hematocrit 38.2 % (39.0-53.0) 36.9 % (39.0-53.0) Mean Corpuscular Volume 89 fL (79-100) 87 fL (79-100) Mean Corpuscular Hemoglobin 29 pg (25-35) 30 pg (25-35) Mean Corpuscular Hemoglobin Concent 33 g/dL (31-37) 34 g/dL (31-37) Red Cell Distribution Width 14.7 % (11.5-14.5) 14.5 % (11.5-14.5) Platelet Count 164 x10^3/uL (140-400) 129 x10^3/uL (140-400) Neutrophils (%) (Auto) 46 % (31-73) 82 % (31-73) Lymphocytes (%) (Auto) 43 % (24-48) 12 % (24-48) Monocytes (%) (Auto) 8 % (0-9) 6 % (0-9) Eosinophils (%) (Auto) 2 % (0-3) 0 % (0-3) Basophils (%) (Auto) 1 % (0-3) 0 % (0-3) Neutrophils # (Auto) 3.7 x10^3uL (1.8-7.7) 7.3 x10^3uL (1.8-7.7) Lymphocytes # (Auto) 3.5 x10^3/uL (1.0-4.8) 1.0 x10^3/uL (1.0-4.8) Monocytes # (Auto) 0.7 x10^3/uL (0.0-1.1) 0.5 x10^3/uL (0.0-1.1) Eosinophils # (Auto) 0.1 x10^3/uL (0.0-0.7) 0.0 x10^3/uL (0.0-0.7) Basophils # (Auto) 0.1 x10^3/uL (0.0-0.2) 0.0 x10^3/uL (0.0-0.2) Prothrombin Time 19.3 SEC (11.7-14.0) Prothromb Time International Ratio 1.7 (0.8-1.1) Sodium Level 143 mmol/L (136-145) 142 mmol/L (136-145) Potassium Level 4.2 mmol/L (3.5-5.1) 4.6 mmol/L (3.5-5.1) Chloride Level 107 mmol/L (98-107) 107 mmol/L (98-107) Carbon Dioxide Level 23 mmol/L (21-32) 22 mmol/L (21-32) Anion Gap 13 (6-14) 13 (6-14) Blood Urea Nitrogen 31 mg/dL (8-26) 32 mg/dL (8-26) Creatinine 1.7 mg/dL (0.7-1.3) 1.8 mg/dL (0.7-1.3) Estimated GFR (Cockcroft-Gault) 38.1 35.7 Glucose Level 155 mg/dL (70-99) 181 mg/dL (70-99) Calcium Level 8.9 mg/dL (8.5-10.1) 9.0 mg/dL (8.5-10.1) Total Bilirubin 0.4 mg/dL (0.2-1.0) 0.5 mg/dL (0.2-1.0) Direct Bilirubin 0.1 mg/dL (0.0-0.2) Aspartate Amino Transf (AST/SGOT) 39 U/L (15-37) 69 U/L (15-37) Alanine Aminotransferase (ALT/SGPT) 21 U/L (16-63) 26 U/L (16-63) Alkaline Phosphatase 82 U/L (46-116) 76 U/L (46-116) Troponin I Quantitative 15.325 ng/mL (0.000-0.055) 18.786 ng/mL (0.000-0.055) JO-Cou-M-Type Natriuretic Peptide 3704 pg/mL (0-449) Total Protein 6.1 g/dL (6.4-8.2) 6.0 g/dL (6.4-8.2) Albumin 3.6 g/dL (3.4-5.0) 3.8 g/dL (3.4-5.0) Lipase 237 U/L (73-393) Glucose (Fingerstick) 129 mg/dL (70-99) Nasal Screen MRSA (PCR) Negative (Negative) Heparin Anti-Xa Act, Unfractionated 0.36 IU/mL (0.30-0.70) BUN/Creatinine Ratio 18 (6-20) Albumin/Globulin Ratio 1.7 (1.0-1.7) Test 06/09/17 03:00 White Blood Count 12.8 x10^3/uL (4.0-11.0) Red Blood Count 3.92 x10^6/uL (4.30-5.70) Hemoglobin 11.4 g/dL (13.0-17.5) Hematocrit 34.9 % (39.0-53.0) Mean Corpuscular Volume 89 fL (79-100) Mean Corpuscular Hemoglobin 29 pg (25-35) Mean Corpuscular Hemoglobin Concent 33 g/dL (31-37) Red Cell Distribution Width 15.0 % (11.5-14.5) Platelet Count 137 x10^3/uL (140-400) Neutrophils (%) (Auto) 84 % (31-73) Lymphocytes (%) (Auto) 8 % (24-48) Monocytes (%) (Auto) 9 % (0-9) Eosinophils (%) (Auto) 0 % (0-3) Basophils (%) (Auto) 0 % (0-3) Neutrophils # (Auto) 10.7 x10^3uL (1.8-7.7) Lymphocytes # (Auto) 1.0 x10^3/uL (1.0-4.8) Monocytes # (Auto) 1.1 x10^3/uL (0.0-1.1) Eosinophils # (Auto) 0.0 x10^3/uL (0.0-0.7) Basophils # (Auto) 0.0 x10^3/uL (0.0-0.2) Heparin Anti-Xa Act, Unfractionated 0.13 IU/mL (0.30-0.70) Sodium Level 140 mmol/L (136-145) Potassium Level 4.2 mmol/L (3.5-5.1) Chloride Level 106 mmol/L (98-107) Carbon Dioxide Level 20 mmol/L (21-32) Anion Gap 14 (6-14) Blood Urea Nitrogen 36 mg/dL (8-26) Creatinine 1.7 mg/dL (0.7-1.3) Estimated GFR (Cockcroft-Gault) 38.1 Glucose Level 227 mg/dL (70-99) Calcium Level 9.2 mg/dL (8.5-10.1) Laboratory Tests Test 06/09/17 03:00 White Blood Count 12.8 x10^3/uL (4.0-11.0) Red Blood Count 3.92 x10^6/uL (4.30-5.70) Hemoglobin 11.4 g/dL (13.0-17.5) Hematocrit 34.9 % (39.0-53.0) Mean Corpuscular Volume 89 fL (79-100) Mean Corpuscular Hemoglobin 29 pg (25-35) Mean Corpuscular Hemoglobin Concent 33 g/dL (31-37) Red Cell Distribution Width 15.0 % (11.5-14.5) Platelet Count 137 x10^3/uL (140-400) Neutrophils (%) (Auto) 84 % (31-73) Lymphocytes (%) (Auto) 8 % (24-48) Monocytes (%) (Auto) 9 % (0-9) Eosinophils (%) (Auto) 0 % (0-3) Basophils (%) (Auto) 0 % (0-3) Neutrophils # (Auto) 10.7 x10^3uL (1.8-7.7) Lymphocytes # (Auto) 1.0 x10^3/uL (1.0-4.8) Monocytes # (Auto) 1.1 x10^3/uL (0.0-1.1) Eosinophils # (Auto) 0.0 x10^3/uL (0.0-0.7) Basophils # (Auto) 0.0 x10^3/uL (0.0-0.2) Heparin Anti-Xa Act, Unfractionated 0.13 IU/mL (0.30-0.70) Sodium Level 140 mmol/L (136-145) Potassium Level 4.2 mmol/L (3.5-5.1) Chloride Level 106 mmol/L (98-107) Carbon Dioxide Level 20 mmol/L (21-32) Anion Gap 14 (6-14) Blood Urea Nitrogen 36 mg/dL (8-26) Creatinine 1.7 mg/dL (0.7-1.3) Estimated GFR (Cockcroft-Gault) 38.1 Glucose Level 227 mg/dL (70-99) Calcium Level 9.2 mg/dL (8.5-10.1) DIPTI QUIÑONEZ MD Jun 09, 2017 08:16
--- NOTE | 2017-06-09 08:42 | CONS ---
DATE OF CONSULTATION: 06/09/2017 PRIMARY PHYSICIAN: Dr. Wiseman. REASON FOR CONSULTATION: Elevated creatinine. HISTORY OF PRESENT ILLNESS: The patient is an 87-year-old pleasant gentleman who recently underwent a left heart catheterization. It appears that his baseline creatinine at least from 05/28/2017 (prior to his heart catheterization on 06/03/2017) post-paracentesis was 1.7. We do not have prior creatinines except for 2014 when his creatinine was 1.1. He is known to have significant atherosclerotic vascular disease, both in his heart as well as in his aorta as noted on previous CAT scan from 2014. He is not aware of known renal insufficiency. Denies any NSAID use. He denies prostate problems other than an enlarged prostate or urinary difficulties per se in this setting. The patient presented to the hospital with recurrence of his chest pain, is noted to have positive troponins, was taken to the [facility] labor supervisor and was not felt to have any intervenable areas. He is now in the ICU on nitro drip and other medications. For rest of the details, please see electronic records. DIPTI QUIÑONEZ MD DR: CAMDEN/devika JOB#: [id number] / [id number]
--- NOTE | 2017-06-09 10:18 | PDOC ---
PROGRESS NOTES Chief Complaint Chief Complaint 1. NSTEMI 2. CAD s/p previous CABG and stent 3. S/p aortic mechanical valve replacement. EF % preserved 4. Hypertension; 5. Hyperlipidemia 6. vasomotor nephropathy or ES, History of Present Illness History of Present Illness still on nitro gtt. Morphine PRN heparin cardiac cath yesterday looked OK, good collaterals reported, Chest pain is gone now INR goal higher Vitals Vitals Vital Signs Date Time Temp Pulse Resp B/P (MAP) Pulse Ox O2 Delivery O2 Flow Rate FiO2 06/09/17 06:00 103 23 124/80 (95) 98 Nasal Cannula 3.0 06/09/17 04:00 98.1 98.1 Physical Exam General: Alert, No acute distress Heart: Regular rate Lungs: Clear, Other Extremities: No clubbing, No edema Skin: No rashes Labs LABS Laboratory Tests Test 06/09/17 03:00 White Blood Count 12.8 x10^3/uL (4.0-11.0) Red Blood Count 3.92 x10^6/uL (4.30-5.70) Hemoglobin 11.4 g/dL (13.0-17.5) Hematocrit 34.9 % (39.0-53.0) Mean Corpuscular Volume 89 fL (79-100) Mean Corpuscular Hemoglobin 29 pg (25-35) Mean Corpuscular Hemoglobin Concent 33 g/dL (31-37) Red Cell Distribution Width 15.0 % (11.5-14.5) Platelet Count 137 x10^3/uL (140-400) Neutrophils (%) (Auto) 84 % (31-73) Lymphocytes (%) (Auto) 8 % (24-48) Monocytes (%) (Auto) 9 % (0-9) Eosinophils (%) (Auto) 0 % (0-3) Basophils (%) (Auto) 0 % (0-3) Neutrophils # (Auto) 10.7 x10^3uL (1.8-7.7) Lymphocytes # (Auto) 1.0 x10^3/uL (1.0-4.8) Monocytes # (Auto) 1.1 x10^3/uL (0.0-1.1) Eosinophils # (Auto) 0.0 x10^3/uL (0.0-0.7) Basophils # (Auto) 0.0 x10^3/uL (0.0-0.2) Heparin Anti-Xa Act, Unfractionated 0.13 IU/mL (0.30-0.70) Sodium Level 140 mmol/L (136-145) Potassium Level 4.2 mmol/L (3.5-5.1) Chloride Level 106 mmol/L (98-107) Carbon Dioxide Level 20 mmol/L (21-32) Anion Gap 14 (6-14) Blood Urea Nitrogen 36 mg/dL (8-26) Creatinine 1.7 mg/dL (0.7-1.3) Estimated GFR (Cockcroft-Gault) 38.1 Glucose Level 227 mg/dL (70-99) Calcium Level 9.2 mg/dL (8.5-10.1) Review of Systems Review of Systems feels well no evnet Assessment and Plan Assessmemt and Plan Problems Medical Problems: (1) NSTEMI (non-ST elevated myocardial infarction) Status: Acute Problems: Comment Review of Relevant I have reviewed the following items montez (where applicable) has been applied. Labs Laboratory Tests Test 06/07/17 23:13 06/07/17 23:34 06/08/17 02:30 06/08/17 05:45 White Blood Count 8.0 x10^3/uL (4.0-11.0) 8.9 x10^3/uL (4.0-11.0) Red Blood Count 4.30 x10^6/uL (4.30-5.70) 4.25 x10^6/uL (4.30-5.70) Hemoglobin 12.6 g/dL (13.0-17.5) 12.6 g/dL (13.0-17.5) Hematocrit 38.2 % (39.0-53.0) 36.9 % (39.0-53.0) Mean Corpuscular Volume 89 fL (79-100) 87 fL (79-100) Mean Corpuscular Hemoglobin 29 pg (25-35) 30 pg (25-35) Mean Corpuscular Hemoglobin Concent 33 g/dL (31-37) 34 g/dL (31-37) Red Cell Distribution Width 14.7 % (11.5-14.5) 14.5 % (11.5-14.5) Platelet Count 164 x10^3/uL (140-400) 129 x10^3/uL (140-400) Neutrophils (%) (Auto) 46 % (31-73) 82 % (31-73) Lymphocytes (%) (Auto) 43 % (24-48) 12 % (24-48) Monocytes (%) (Auto) 8 % (0-9) 6 % (0-9) Eosinophils (%) (Auto) 2 % (0-3) 0 % (0-3) Basophils (%) (Auto) 1 % (0-3) 0 % (0-3) Neutrophils # (Auto) 3.7 x10^3uL (1.8-7.7) 7.3 x10^3uL (1.8-7.7) Lymphocytes # (Auto) 3.5 x10^3/uL (1.0-4.8) 1.0 x10^3/uL (1.0-4.8) Monocytes # (Auto) 0.7 x10^3/uL (0.0-1.1) 0.5 x10^3/uL (0.0-1.1) Eosinophils # (Auto) 0.1 x10^3/uL (0.0-0.7) 0.0 x10^3/uL (0.0-0.7) Basophils # (Auto) 0.1 x10^3/uL (0.0-0.2) 0.0 x10^3/uL (0.0-0.2) Prothrombin Time 19.3 SEC (11.7-14.0) Prothromb Time International Ratio 1.7 (0.8-1.1) Sodium Level 143 mmol/L (136-145) 142 mmol/L (136-145) Potassium Level 4.2 mmol/L (3.5-5.1) 4.6 mmol/L (3.5-5.1) Chloride Level 107 mmol/L (98-107) 107 mmol/L (98-107) Carbon Dioxide Level 23 mmol/L (21-32) 22 mmol/L (21-32) Anion Gap 13 (6-14) 13 (6-14) Blood Urea Nitrogen 31 mg/dL (8-26) 32 mg/dL (8-26) Creatinine 1.7 mg/dL (0.7-1.3) 1.8 mg/dL (0.7-1.3) Estimated GFR (Cockcroft-Gault) 38.1 35.7 Glucose Level 155 mg/dL (70-99) 181 mg/dL (70-99) Calcium Level 8.9 mg/dL (8.5-10.1) 9.0 mg/dL (8.5-10.1) Total Bilirubin 0.4 mg/dL (0.2-1.0) 0.5 mg/dL (0.2-1.0) Direct Bilirubin 0.1 mg/dL (0.0-0.2) Aspartate Amino Transf (AST/SGOT) 39 U/L (15-37) 69 U/L (15-37) Alanine Aminotransferase (ALT/SGPT) 21 U/L (16-63) 26 U/L (16-63) Alkaline Phosphatase 82 U/L (46-116) 76 U/L (46-116) Troponin I Quantitative 15.325 ng/mL (0.000-0.055) 18.786 ng/mL (0.000-0.055) WT-Alc-E-Type Natriuretic Peptide 3704 pg/mL (0-449) Total Protein 6.1 g/dL (6.4-8.2) 6.0 g/dL (6.4-8.2) Albumin 3.6 g/dL (3.4-5.0) 3.8 g/dL (3.4-5.0) Lipase 237 U/L (73-393) Glucose (Fingerstick) 129 mg/dL (70-99) Nasal Screen MRSA (PCR) Negative (Negative) Heparin Anti-Xa Act, Unfractionated 0.36 IU/mL (0.30-0.70) BUN/Creatinine Ratio 18 (6-20) Albumin/Globulin Ratio 1.7 (1.0-1.7) Test 06/09/17 03:00 White Blood Count 12.8 x10^3/uL (4.0-11.0) Red Blood Count 3.92 x10^6/uL (4.30-5.70) Hemoglobin 11.4 g/dL (13.0-17.5) Hematocrit 34.9 % (39.0-53.0) Mean Corpuscular Volume 89 fL (79-100) Mean Corpuscular Hemoglobin 29 pg (25-35) Mean Corpuscular Hemoglobin Concent 33 g/dL (31-37) Red Cell Distribution Width 15.0 % (11.5-14.5) Platelet Count 137 x10^3/uL (140-400) Neutrophils (%) (Auto) 84 % (31-73) Lymphocytes (%) (Auto) 8 % (24-48) Monocytes (%) (Auto) 9 % (0-9) Eosinophils (%) (Auto) 0 % (0-3) Basophils (%) (Auto) 0 % (0-3) Neutrophils # (Auto) 10.7 x10^3uL (1.8-7.7) Lymphocytes # (Auto) 1.0 x10^3/uL (1.0-4.8) Monocytes # (Auto) 1.1 x10^3/uL (0.0-1.1) Eosinophils # (Auto) 0.0 x10^3/uL (0.0-0.7) Basophils # (Auto) 0.0 x10^3/uL (0.0-0.2) Heparin Anti-Xa Act, Unfractionated 0.13 IU/mL (0.30-0.70) Sodium Level 140 mmol/L (136-145) Potassium Level 4.2 mmol/L (3.5-5.1) Chloride Level 106 mmol/L (98-107) Carbon Dioxide Level 20 mmol/L (21-32) Anion Gap 14 (6-14) Blood Urea Nitrogen 36 mg/dL (8-26) Creatinine 1.7 mg/dL (0.7-1.3) Estimated GFR (Cockcroft-Gault) 38.1 Glucose Level 227 mg/dL (70-99) Calcium Level 9.2 mg/dL (8.5-10.1) Laboratory Tests Test 06/09/17 03:00 White Blood Count 12.8 x10^3/uL (4.0-11.0) Red Blood Count 3.92 x10^6/uL (4.30-5.70) Hemoglobin 11.4 g/dL (13.0-17.5) Hematocrit 34.9 % (39.0-53.0) Mean Corpuscular Volume 89 fL (79-100) Mean Corpuscular Hemoglobin 29 pg (25-35) Mean Corpuscular Hemoglobin Concent 33 g/dL (31-37) Red Cell Distribution Width 15.0 % (11.5-14.5) Platelet Count 137 x10^3/uL (140-400) Neutrophils (%) (Auto) 84 % (31-73) Lymphocytes (%) (Auto) 8 % (24-48) Monocytes (%) (Auto) 9 % (0-9) Eosinophils (%) (Auto) 0 % (0-3) Basophils (%) (Auto) 0 % (0-3) Neutrophils # (Auto) 10.7 x10^3uL (1.8-7.7) Lymphocytes # (Auto) 1.0 x10^3/uL (1.0-4.8) Monocytes # (Auto) 1.1 x10^3/uL (0.0-1.1) Eosinophils # (Auto) 0.0 x10^3/uL (0.0-0.7) Basophils # (Auto) 0.0 x10^3/uL (0.0-0.2) Heparin Anti-Xa Act, Unfractionated 0.13 IU/mL (0.30-0.70) Sodium Level 140 mmol/L (136-145) Potassium Level 4.2 mmol/L (3.5-5.1) Chloride Level 106 mmol/L (98-107) Carbon Dioxide Level 20 mmol/L (21-32) Anion Gap 14 (6-14) Blood Urea Nitrogen 36 mg/dL (8-26) Creatinine 1.7 mg/dL (0.7-1.3) Estimated GFR (Cockcroft-Gault) 38.1 Glucose Level 227 mg/dL (70-99) Calcium Level 9.2 mg/dL (8.5-10.1) Medications Current Medications Heparin Sodium (Porcine) (Heparin Sodium) 4,000 unit 1X ONCE IV Last administered on 06/08/17 00:12; Start 06/07/17 at 23:45; Stop 06/07/17 at 23:46 ; Status DC Heparin Sodium/ Dextrose 500 ml @ 0 mls/hr 1X ONCE IV Last administered on 00:13; Start 06/07/17 at 23:45; Stop 06/07/17 at 23:46; Status DC Haloperidol Lactate (Haldol) 2 mg 1X ONCE IM Last administered on 06/08/17 00 :07; Start 06/08/17 at 00:15; Stop 06/08/17 at 00:16; Status DC Ondansetron HCl (Zofran) 4 mg PRN Q8HRS PRN IV NAUSEA/VOMITING; Start 06/08/17 at 00:15; Stop 06/09/17 at 00:14; Status DC Morphine Sulfate 2 mg PRN Q2HR PRN IV PAIN Last administered on 06/08/17 18:16 ; Start 06/08/17 at 00:15; Stop 06/09/17 at 00:14; Status DC Haloperidol Lactate (Haldol) 5 mg 1X ONCE IM Last administered on 06/08/17 00 :46; Start 06/08/17 at 00:45; Stop 06/08/17 at 00:50; Status DC Haloperidol Lactate (Haldol) 2 mg PRN Q6HRS PRN IVP AGITATION Last administered on 06/08/17 02:36; Start 06/08/17 at 02:00 Heparin Sodium (Porcine) (Heparin Sodium) 4,000 unit 1X ONCE IV ; Start at 07:00; Stop 06/08/17 at 07:01; Status DC Heparin Sodium/ Dextrose 500 ml @ 0 mls/hr CONT PRN IV SEE I/O RECORD; Start at 07:00 Heparin Sodium (Porcine) (Heparin Sodium) 1,850 unit PRN Q6HRS PRN IV FOR UFH LEVEL LESS THAN 0.2 Last administered on 06/09/17 03:57; Start 06/08/17 at 07: 00 Nitroglycerin/ Dextrose 250 ml @ 0 mls/hr CONT PRN IV SEE I/O RECORD Last administered on 06/08/17 09:04; Start 06/08/17 at 08:45 Info (Anti-Coagulation Monitoring By Pharmacy) 1 each PRN DAILY PRN MC SEE COMMENTS Last administered on 06/08/17 11:06; Start 06/08/17 at 11:15 Lidocaine HCl 20 ml STK-MED ONCE .ROUTE ; Start 06/08/17 at 11:22; Stop at 11:23; Status DC Heparin Sodium/ Sodium Chloride 1,500 ml @ As Directed STK-MED ONCE .ROUTE ; Start 06/08/17 at 11:22; Stop 06/08/17 at 11:23; Status DC Iodixanol (Visipaque 320) 100 ml STK-MED ONCE .ROUTE ; Start 06/08/17 at 11:22; Stop 06/08/17 at 11:23; Status DC Heparin Sodium/ Sodium Chloride 1,000 unit 1X ONCE IART Last administered on 12:50; Start 06/08/17 at 12:15; Stop 06/08/17 at 12:17; Status DC Iodixanol (Visipaque 320) 100 ml 1X ONCE IART Last administered on 06/08/17 12:49; Start 06/08/17 at 12:15; Stop 06/08/17 at 12:17; Status DC Lidocaine HCl 15 ml 1X ONCE IJ Last administered on 06/08/17 12:49; Start at 12:15; Stop 06/08/17 at 12:17; Status DC Info (Do NOT chart on this entry -- for MONITORING) 1 each PRN DAILY PRN MC SEE COMMENTS; Start 06/08/17 at 12:30; Stop 06/10/17 at 12:29 Sodium Chloride (Normal Saline Flush) 3 ml QSHIFT PRN IV AFTER MEDS AND BLOOD DRAWS; Start 06/08/17 at 13:45 Sodium Chloride 1,000 ml @ 60 mls/hr [id number] IV Last administered on 13:41; Start 06/08/17 at 13:35; Stop 06/08/17 at 19:34; Status DC Nitroglycerin (Nitrostat) 0.4 mg PRN Q5MIN PRN SL CHEST PAIN; Start 06/08/17 at 13:45 Heparin Sodium/ Dextrose 500 ml @ 0 mls/hr CONT PRN IV SEE I/O RECORD; Start at 20:00; Status UNV Heparin Sodium (Porcine) (Heparin Sodium) 1,850 unit PRN Q6HRS PRN IV FOR UFH LEVEL LESS THAN 0.2; Start 06/08/17 at 20:00; Status UNV Magnesium Sulfate/ Dextrose 50 ml @ 25 mls/hr PRN DAILY PRN IV for Mag < 1.7 on am labs; Start 06/09/17 at 08:15 Active Scripts Active [Metoprolol Tartrate] 25 MG Tablet 12.5 Mg PO BID 30 Days [Hydrocodone/Acetaminophen] 1 TAB Tablet 1 Tab PO PRN Q6HRS PRN Reported Clopidogrel (Clopidogrel Bisulfate) 75 Mg Tablet 1 Tab PO DAILY Metoprolol Tartrate 25 Mg Tablet 1 Tab PO BID Warfarin Sodium 5 Mg Tablet 1 Tab PO Tue Warfarin Sodium 7.5 Mg Tablet 7.5 Mg PO TUESDAY, TUESDAY Omeprazole 40 Mg Capsule.dr 40 Mg PO DAILY Tamsulosin Hcl 0.4 Mg Cap.er.24h 1 Cap PO HS Lovastatin 20 Mg Tablet 80 Mg PO HS Aspirin 81 Mg Tab.chew 81 Mg PO HS Calcium (Calcium Carbonate) 500 Mg Tab.chew 600 Mg PO DAILY Fish Oil ([place]-3 Fatty Acids) 500 Mg Capsule.dr 500 Mg PO DAILY Avodart (Dutasteride) 0.5 Mg Capsule 1 Cap PO DAILY Levothyroxine Sodium 88 Mcg Tablet 50 Mcg PO DAILYAC Vitals/I & O Vital Sign - Last 24 Hours 06/08/17 06/08/17 06/08/17 06/08/17 11:00 12:00 12:50 13:00 Temp 98.0 98.0 Pulse 94 98 Resp 11 18 22 B/P (MAP) 128/81 (97) 129/90 (103) Pulse Ox 94 98 97 O2 Delivery Nasal Cannula Nasal Cannula Nasal Cannula Nasal Cannula O2 Flow Rate 3.0 3.0 3.0 3.0 06/08/17 06/08/17 06/08/17 06/08/17 13:15 13:30 13:40 13:45 Pulse 94 96 92 Resp 23 26 10 28 B/P (MAP) 130/88 (102) 117/95 (102) 134/89 (104) Pulse Ox 98 97 97 97 O2 Delivery Nasal Cannula Nasal Cannula Nasal Cannula Nasal Cannula O2 Flow Rate 3.0 06/08/17 06/08/17 06/08/17 06/08/17 14:00 14:10 14:30 15:00 Pulse 100 94 94 Resp 19 11 19 B/P (MAP) 147/77 (100) 136/92 (107) 122/96 (105) Pulse Ox 96 96 98 99 O2 Delivery Nasal Cannula Nasal Cannula Nasal Cannula O2 Flow Rate 3.0 06/08/1706/08/17 06/08/17 06/08/17 16:00 16:00 17:02 18:00 Temp 98.0 98.0 Pulse 94 96 90 Resp 18 16 23 B/P (MAP) 127/94 (105) 137/88 (104) 117/77 (90) Pulse Ox 99 100 98 O2 Delivery Nasal Cannula Nasal Cannula Nasal Cannula Nasal Cannula O2 Flow Rate 3.0 3.0 3.0 06/08/17 06/08/1706/08/17 17 18:16 18:46 19:00 20:00 Temp 98.2 98.2 Pulse 94 98 Resp 25 16 16 23 B/P (MAP) 120/84 (96) 105/73 (84) Pulse Ox 97 98 94 O2 Delivery Nasal Cannula Nasal Cannula Nasal Cannula Nasal Cannula O2 Flow Rate 3.0 3.0 3.0 3.0 06/08/17 06/08/17 06/08/17 06/08/17 20:00 21:00 22:02 23:00 Pulse 104 111 98 Resp 28 30 12 B/P (MAP) 114/80 (91) 119/93 (102) 110/84 (93) Pulse Ox 95 95 98 O2 Delivery Nasal Cannula Nasal Cannula Nasal Cannula Nasal Cannula O2 Flow Rate 3.0 3.0 3.0 3.0 06/09/17 06/09/17 06/09/17 06/09/17 00:00 00:00 01:03 02:00 Temp 98.7 98.7 Pulse 104 101 116 Resp 19 18 37 B/P (MAP) 141/87 (105) 122/80 (94) 125/85 (98) Pulse Ox 98 97 98 O2 Delivery Nasal Cannula Nasal Cannula Nasal Cannula Nasal Cannula O2 Flow Rate 3.0 3.0 3.0 3.0 06/09/17 06/09/17 06/09/17 06/09/17 03:00 04:00 04:00 05:00 Temp 98.1 98.1 Pulse 106 104 104 Resp 20 23 B/P (MAP) 105/76 (86) 107/83 (91) 106/80 (89) Pulse Ox 98 O2 Delivery Nasal Cannula Nasal Cannula Nasal Cannula Nasal Cannula O2 Flow Rate 3.0 3.0 3.0 3.0 06/09/17 06:00 Pulse 103 Resp 23 B/P (MAP) 124/80 (95) Pulse Ox 98 O2 Delivery Nasal Cannula O2 Flow Rate 3.0 Intake and Output 06/08/17 06/08/17 06/09/17 15:00 23:00 07:00 Intake Total 230 ml 645 ml 532 ml Output Total 200 ml 200 ml 275 ml Balance 30 ml 445 ml 257 ml NIKITA SANCHEZ MD Jun 09, 2017 10:18
--- NOTE | 2017-06-09 10:42 | RAD ---
Renal ultrasound, 06/09/2017: History: Acute and chronic renal insufficiency The right kidney measures 9.9 cm in length while the left kidney measures 9.8 cm. There is mild bilateral renal cortical scarring. The renal parenchymal echogenicity is mildly increased. There is no evidence of hydronephrosis. No renal mass is seen. The urinary bladder is collapsed and not adequately delineated. IMPRESSION: 1. Mildly increased renal parenchymal echogenicity compatible with medical renal disease. 2. No evidence of renal obstruction.
[2017-06-09] MEDS ORDERED: HYDROcodone/APAP 5/325MG 1 TAB TABLET PO PRN (10:45)
[2017-06-09] MEDS ORDERED: SULFUR HEXAFLUORIDE MICROSPHR 25 MG VIAL. IVP ONE ×3 (10:57→11:30)
[2017-06-09 11:43] LABS: INR 2.8 (0.8-1.1); PROTHROMBIN TIME PATIENT 27.8 SEC (11.7-14.0)
--- NOTE | 2017-06-09 11:55 | PDOC ---
ANNA SEAMAN NET WASHER 06/09/17 1155: CARDIO Progress Notes Date and Time Date of Service 06/09/17 Time of Evaluation 1150 Subjective Subjective: No Chest Pain, No Palpitations, Other (c/o SOA with minimal activity ) Vitals Vitals Vital Signs Date Time Temp Pulse Resp B/P (MAP) Pulse Ox O2 Delivery O2 Flow Rate FiO2 06/09/17 10:00 114 131/83 (99) 92 Nasal Cannula 2.0 06/09/17 08:00 98.3 98.3 06/09/17 06:00 23 Weight Weight [ ] Input and Output Intake and Output Intake and Output 06/09/17 07:00 Intake Total 1407 ml Output Total 675 ml Balance 732 ml Intake Oral 670 ml IV Total 737 ml Output Urine Total 675 ml # Bowel Movements 2 Laboratory Labs Laboratory Tests Test 06/09/17 03:00 06/09/17 10:10 White Blood Count 12.8 x10^3/uL (4.0-11.0) Red Blood Count 3.92 x10^6/uL (4.30-5.70) Hemoglobin 11.4 g/dL (13.0-17.5) Hematocrit 34.9 % (39.0-53.0) Mean Corpuscular Volume 89 fL (79-100) Mean Corpuscular Hemoglobin 29 pg (25-35) Mean Corpuscular Hemoglobin Concent 33 g/dL (31-37) Red Cell Distribution Width 15.0 % (11.5-14.5) Platelet Count 137 x10^3/uL (140-400) Neutrophils (%) (Auto) 84 % (31-73) Lymphocytes (%) (Auto) 8 % (24-48) Monocytes (%) (Auto) 9 % (0-9) Eosinophils (%) (Auto) 0 % (0-3) Basophils (%) (Auto) 0 % (0-3) Neutrophils # (Auto) 10.7 x10^3uL (1.8-7.7) Lymphocytes # (Auto) 1.0 x10^3/uL (1.0-4.8) Monocytes # (Auto) 1.1 x10^3/uL (0.0-1.1) Eosinophils # (Auto) 0.0 x10^3/uL (0.0-0.7) Basophils # (Auto) 0.0 x10^3/uL (0.0-0.2) Heparin Anti-Xa Act, Unfractionated 0.13 IU/mL (0.30-0.70) 0.43 IU/mL (0.30-0.70) Sodium Level 140 mmol/L (136-145) Potassium Level 4.2 mmol/L (3.5-5.1) Chloride Level 106 mmol/L (98-107) Carbon Dioxide Level 20 mmol/L (21-32) Anion Gap 14 (6-14) Blood Urea Nitrogen 36 mg/dL (8-26) Creatinine 1.7 mg/dL (0.7-1.3) Estimated GFR (Cockcroft-Gault) 38.1 Glucose Level 227 mg/dL (70-99) Calcium Level 9.2 mg/dL (8.5-10.1) Prothrombin Time 27.8 SEC (11.7-14.0) Prothromb Time International Ratio 2.8 (0.8-1.1) Physical Exam HEENT: Neck Supple W Full Motion Chest: Symmetric LUNGS: Other (diminished bases ) Heart: S1S2, RRR, murmurs (2/6 systolic murmur), other (tele SR/ST ) Abdomen: Soft N/T Extremities: No Edema, No Calf Tenderness Neurology: alert, follow commands, other Assessment Assessment 1. NSTEMI 2. CAD s/p previous CABG and PCI/NIGEL to the RCA and LAD; cath reveal patent stents. 3. S/p aortic mechanical valve replacement. Recent Echo reveals normal valvular function. on warfarin therapy 4. Hypertension; controlled 5. Hyperlipidemia. LDL 79. statin therapy. 6. ES; IVF initiated Recommendations Discontinue nitro Stop heparin; INR therapeutic. Continue secondary prevention measures including DAPT with ASA and Plavix Add imdur Will check CXR given SOA; may need lasix. Limited echo preliminary EF 20-25%. Awaiting final. Add SANDOR when Cr at/near baseline Consider LifeVest upon discharge Repeat echo in 3 months to evaluate need for AICD in prevention of SCD SHELTON LY MD 06/10/17 1135: CARDIO Progress Notes Assessment Assessment Patient seen and examined 06/09/17. Agree with PHOTOGRAPHIC INTELLIGENCE OFFICER's assessment and plan. Patient feeling better with almost complete resolution of chest pain 2-D echo showed LVEF 20-25% - uncertain reason for diminished systolic function since cardiac catheterization showed patent recently placed stents in RCA and LAD Non-STEMI could be secondary to vasospasm or resolved thrombus Continue optimal medical therapy ANNA SEAMAN APRN Jun 09, 2017 11:55 SHELTON LY MD Jun 10, 2017 11:35
[2017-06-09] MEDS: METOPROLOL TART IMMED RELEASE 25 MG TABLET. PO SCH ×2 (13:22→20:17)
[2017-06-09] MEDS: PANTOPRAZOLE 40 MG TABLET.DR. PO SCH (13:23)
[2017-06-09] MEDS: DUTASTERIDE 0.5 MG CAPSULE PO SCH (13:23)
[2017-06-09] MEDS: LEVOTHYROXINE 50 MCG TABLET PO SCH (13:23)
--- NOTE | 2017-06-09 14:21 | CARD ---
APPROVED REPORT EXAM: LIMITED Two-dimensional echocardiogram with contrast. Other Information Quality : Average Rhythm : NSR with ectopy INDICATION ACS Echo Enhancing Agent Indication: Endocardial border delineation Agent/Amount Used: Lumason 2mL 2D DIMENSIONS IVSd0.9 (0.7-1.1cm)LVDd4.8 (3.9-5.9cm) PWd0.9 (0.7-1.1cm)LVDs4.3 (2.5-4.0cm) FS (%) 9.8 %SV22.9 ml LVEF(%)21.4 (>50%) LEFT VENTRICLE The left ventricle is normal size. There is normal left ventricular wall thickness. Left ventricle sy stolic function is severely impaired. The Ejection Fraction is 20-25%. Severe basal to distal inferio r, inferolateral and lateral wall hypokinesis with akinesis of the basal to mid posterior wall and fo ирина mid posterior wall aneurysm. GREAT VESSELS Not assessed. PERICARDIAL EFFUSION There is no evidence of significant pericardial effusion. Critical Notification Date: 06/09/2017 Time: 11:27 Physician Name: Other Discipline : Jossy Almeida APRN Critical Value: Yes <Conclusion> Left ventricle systolic function is severely impaired. The Ejection Fraction is 20-25%. Severe basal to distal inferior, inferolateral and lateral wall hypokinesis with akinesis of the basa l to mid posterior wall and focal mid posterior wall aneurysm. Limited echo only.
--- NOTE | 2017-06-09 16:02 | RAD ---
Portable chest, 06/09/2017: History: Shortness of breath Comparison is made to a study from 06/07/2017. A cardiac valvular prosthesis is in place. The heart is at the upper limits of normal in size. There is calcific plaquing of the aorta. The pulmonary vascularity is normal. There is minimal atelectasis and/or scarring in the left lateral costophrenic angle. The lungs are otherwise clear. No definite pleural fluid is seen. IMPRESSION: 1. Borderline cardiomegaly and aortic atherosclerosis. 2. Atelectasis or scarring in the left lateral costophrenic angle.
[2017-06-09] MEDS: ISOSORBIDE MONONITRATE ER 30 MG TAB.ER.24H PO SCH (19:51)
[2017-06-09] MEDS: WARFARIN 5 MG TABLET. PO SCH (19:51)
[2017-06-09] MEDS: TAMSULOSIN 0.4 MG CAP.ER.24H. PO SCH (20:16)
[2017-06-09] MEDS: ASPIRIN CHEWABLE 81 MG TABLET. PO SCH (20:16)
[2017-06-09] MEDS: ATORVASTATIN CALCIUM 20 MG TABLET PO SCH (20:17)
[2017-06-09 22:11] LABS: BILIRUBIN,URINE SMALL (NEG); GLUCOSE,URINE NEGATIVE (NEG); NITRITE,URINE NEGATIVE (NEG); PH,URINE 5.5; PROTEIN,URINE 30 mg/dL (NEG-TRACE)
[2017-06-09 22:20] LABS: BACTERIA,URINE 0 /HPF (0-FEW); SQUAMOUS EPITHELIAL CELL,UR FEW /LPF
[2017-06-10] VITALS (14 sets, daily range): BP systolic 94–120; BP diastolic 66–94
[2017-06-10 05:37] LABS: INR 2.6 (0.8-1.1); PROTHROMBIN TIME PATIENT 26.2 SEC (11.7-14.0)
[2017-06-10 05:41] LABS: ALBUMIN 3.5 g/dL (3.4-5.0); CALCIUM 9.3 mg/dL (8.5-10.1); CREATININE 2.1 mg/dL (0.7-1.3); GFR 29.9; PHOSPHORUS 3.4 mg/dL (2.6-4.7); POTASSIUM 4.5 mmol/L (3.5-5.1)
[2017-06-10] MEDS: LEVOTHYROXINE 50 MCG TABLET PO SCH (06:14)
[2017-06-10] MEDS: ISOSORBIDE MONONITRATE ER 30 MG TAB.ER.24H PO SCH ×2 (08:34→09:56)
[2017-06-10] MEDS: PANTOPRAZOLE 40 MG TABLET.DR. PO SCH (08:34)
[2017-06-10] MEDS: METOPROLOL TART IMMED RELEASE 25 MG TABLET. PO SCH ×2 (09:00→20:50)
[2017-06-10] MEDS ORDERED: CLOPIDOGREL BISULFATE 75 MG TABLET PO SCH (09:00)
[2017-06-10] MEDS: DUTASTERIDE 0.5 MG CAPSULE PO SCH (09:50)
--- NOTE | 2017-06-10 09:59 | PDOC ---
SUBJECTIVE ROS ES Feeling weak and DZ CVS: no Orthopnea, no CP RESP: no SOB, no SOLIZ GI: no Nausea, no Vomiting : no Dysuria, no Urgency OBJECTIVE Vital Signs Vital Signs Date Time Temp Pulse Resp B/P (MAP) Pulse Ox O2 Delivery O2 Flow Rate FiO2 06/10/17 08:34 95 115/85 06/10/17 08:00 30 100 Nasal Cannula 2.0 06/10/17 07:00 97.3 97.3 I & 0 Intake and Output 06/10/17 07:00 Intake Total 1113 ml Output Total 245 ml Balance 868 ml Intake Oral 1045 ml IV Total 68 ml Output Urine Total 245 ml # Voids 4 PHYSICAL EXAM Physical Exam General Appearance: Awake Alert Oriented x 3 In no Distress Eyes: VIsion Unchanged Conjunctiva Normal EN: No EN Drainage Mucous Memb. moist Neck: no JVD no JVP Supple no Thyromegaly CVS: S1 S2 no audible Murmur No Gallop No Rub no Edema Resp: no Rales no Rhonchi no Acc. Muscle use GI: BAS +ve NO Bruit Non Tender Non Distended : no CVA tenderness; no Suprapubic Tenderness Ext feel cool currently MS is appropriate, he follows commands no Rashes noted Assessment & Plan ES - creat higher today. ? some CAN from LHC ; VMN from Low BP and ? vol Depletion cannot ruled out. Current FLuid and E-lyte status does not necessitate emergent need for Dialysis. Will re-evaluate for Dialysis in am Oliguria - IVF for now ? Vol depletion vs Cardiogenic vs B-Debbie related dec in peripheral perfusion CKD III -? new baseline given ASVDz as noted on C and previous CT scans. Anemia: check [place], may need Epogen if hgb < 11. Transfuse as needed to optimize Cardiac perfusion HTN:/ currently Hypotensve after B-Debbie admin. IVF Bolus Current meds reviewed. defer to cardio for changes in light of optimization of Med Mx. OK to ct with ARB as he was on it as OP if BP Allows, hold if Creat > 3.0 Min NAG MEt acidosis (no abg) - suspect due to IV NS - watch off of same. AMI - no current CP Discussed Plan of Care and prognosis etc. at length with family. COMMENT/RELEVANT DATA Meds Current Medications Medications (Trade) Dose Ordered Sig/Kristina Start Time Stop Time Status Last Admin Dose Admin Acetaminophen/ Hydrocodone Bitart (Lortab 5/325) 1 tab PRN Q6HRS PRN 06/09/17 10:45 06/09/17 13:26 1 TAB Aspirin (Children'S Aspirin) 81 mg HS 06/09/17 21:00 06/09/17 20:16 81 MG Atorvastatin Calcium (Lipitor) 20 mg QHS 06/09/17 21:00 06/09/17 20:17 20 MG Clopidogrel Bisulfate (Plavix) 75 mg DAILY 06/10/17 09:00 06/10/17 08:39 75 MG Dutasteride (Avodart) 0.5 mg DAILY 06/09/17 11:30 06/09/17 13:23 0.5 MG Haloperidol Lactate (Haldol) 2 mg PRN Q6HRS PRN 06/08/17 02:00 06/08/17 02:36 2 MG Heparin Sodium (Porcine) (Heparin Sodium) 1,850 unit PRN Q6HRS PRN 06/08/17 20:00 UNV Heparin Sodium/ Dextrose 500 ml @ 0 mls/hr CONT PRN 06/08/17 20:00 UNV Heparin Sodium/ Sodium Chloride 1,000 unit 1X ONCE 06/08/17 12:15 06/08/17 12:17 DC 06/08/17 12:50 1,000 UNIT Info (Anti-Coagulation Monitoring By Pharmacy) 1 each PRN DAILY PRN 06/08/17 11:15 06/08/17 11:06 1 EACH Info (Do NOT chart on this entry -- for MONITORING) 1 each PRN DAILY PRN 06/08/17 12:30 06/10/17 12:29 Iodixanol (Visipaque 320) 100 ml 1X ONCE 06/08/17 12:15 06/08/17 12:17 DC 06/08/17 12:49 115 ML Isosorbide Mononitrate (Imdur) 30 mg DAILY 06/09/17 14:30 06/10/17 08:34 30 MG Levothyroxine Sodium (Synthroid) 50 mcg DAILY07 06/09/17 11:00 06/10/17 06:14 50 MCG Lidocaine HCl 15 ml 1X ONCE 06/08/17 12:15 06/08/17 12:17 DC 06/08/17 12:49 15 ML Magnesium Sulfate/ Dextrose 50 ml @ 25 mls/hr PRN DAILY PRN 06/09/17 08:15 Metoprolol Tartrate (Lopressor) 25 mg BID 06/09/17 11:00 06/09/17 20:17 25 MG Morphine Sulfate 2 mg PRN Q2HR PRN 06/08/17 00:15 06/09/17 00:14 DC 06/08/17 18:16 2 MG Nitroglycerin (Nitrostat) 0.4 mg PRN Q5MIN PRN 06/08/17 13:45 Nitroglycerin/ Dextrose 250 ml @ 0 mls/hr CONT PRN 06/08/17 08:45 06/09/17 13:43 DC 06/08/17 09:04 1.5 MLS/HR Ondansetron HCl (Zofran) 4 mg PRN Q8HRS PRN 06/08/17 00:15 06/09/17 00:14 DC Pantoprazole Sodium (Protonix) 40 mg DAILYAC 06/09/17 11:00 06/10/17 08:34 40 MG Sodium Chloride 1,000 ml @ 60 mls/hr [id number] 06/08/17 13:35 06/08/17 19:34 DC 06/08/17 13:41 60 MLS/HR Sodium Chloride (Normal Saline Flush) 3 ml QSHIFT PRN 06/08/17 13:45 Sulfur Hexafluoride Microspheres (Lumason) 25 mg 1X ONCE 06/09/17 11:30 06/09/17 11:31 DC 06/09/17 11:30 25 MG Tamsulosin HCl (Flomax) 0.4 mg HS 06/09/17 21:00 06/09/17 20:16 0.4 MG Warfarin Sodium (Coumadin Per Physician) 1 each PRN DAILY PRN 06/09/17 13:15 Warfarin Sodium (Coumadin) 5 mg DAILY16 06/09/17 16:00 06/09/17 19:51 5 MG Lab Laboratory Tests Test 06/09/17 10:10 06/09/17 20:20 06/10/17 04:30 Prothrombin Time 27.8 SEC (11.7-14.0) 26.2 SEC (11.7-14.0) Prothromb Time International Ratio 2.8 (0.8-1.1) 2.6 (0.8-1.1) Heparin Anti-Xa Act, Unfractionated 0.43 IU/mL (0.30-0.70) Urine Collection Type Unknown Urine Color Cherri Urine Clarity Clear Urine pH 5.5 Urine Specific [place] >=1.030 Urine Protein 30 mg/dL (NEG-TRACE) Urine Glucose (UA) Negative mg/dL (NEG) Urine Ketones (Stick) Negative mg/dL (NEG) Urine Blood Trace (NEG) Urine Nitrite Negative (NEG) Urine Bilirubin Small (NEG) Urine Urobilinogen Dipstick 1.0 mg/dL (0.2 mg/dL) Urine Leukocyte Esterase Negative (NEG) Urine RBC 3-5 /HPF (0-2) Urine WBC 5-10 /HPF (0-4) Urine Squamous Epithelial Cells Few /LPF Urine Amorphous Sediment Present /HPF Urine Bacteria 0 /HPF (0-FEW) Urine Hyaline Casts Many /HPF Urine Mucus Mod /LPF Hemoglobin 11.3 g/dL (13.0-17.5) Sodium Level 137 mmol/L (136-145) Potassium Level 4.5 mmol/L (3.5-5.1) Chloride Level 104 mmol/L (98-107) Carbon Dioxide Level 19 mmol/L (21-32) Anion Gap 14 (6-14) Blood Urea Nitrogen 55 mg/dL (8-26) Creatinine 2.1 mg/dL (0.7-1.3) Estimated GFR (Cockcroft-Gault) 29.9 Glucose Level 179 mg/dL (70-99) Calcium Level 9.3 mg/dL (8.5-10.1) Phosphorus Level 3.4 mg/dL (2.6-4.7) Magnesium Level 2.1 mg/dL (1.8-2.4) Albumin 3.5 g/dL (3.4-5.0) DIPTI QUIÑONEZ MD Jun 10, 2017 09:59
[2017-06-10] MEDS: IV NORMAL SALINE 1000ML BAG 1,000 ML IV SCH (10:15)
[2017-06-10] MEDS ORDERED: IV NORMAL SALINE 500ML BAG 250 ML IV PRN (10:15)
[2017-06-10 10:23] LABS: UR PROTEIN RD 74.9 mg/dL (Not Estab.)
--- NOTE | 2017-06-10 10:39 | PDOC ---
PROGRESS NOTES Chief Complaint Chief Complaint 1. NSTEMI 2. CAD s/p previous CABG and stent 3. S/p aortic mechanical valve replacement. EF % preserved 4. Hypertension; 5. Hyperlipidemia 6. vasomotor nephropathy or ES, History of Present Illness History of Present Illness pain better, up and walking w/ assist, with marked dyspnea on exertion, s/p cardiac cath Chest pain is gone now Vitals Vitals Vital Signs Date Time Temp Pulse Resp B/P (MAP) Pulse Ox O2 Delivery O2 Flow Rate FiO2 06/10/17 09:56 97 84/64 06/10/17 08:00 30 100 Nasal Cannula 2.0 06/10/17 07:00 97.3 97.3 Physical Exam General: Alert, No acute distress Heart: Regular rate, No murmurs Lungs: Clear, Other Extremities: No clubbing, No edema Skin: No rashes Labs LABS Laboratory Tests Test 06/09/17 20:20 06/10/17 04:30 Urine Collection Type Unknown Urine Color Cherri Urine Clarity Clear Urine pH 5.5 Urine Specific [place] >=1.030 Urine Protein 74.9 mg/dL (Not Estab.) Urine Glucose (UA) Negative mg/dL (NEG) Urine Ketones (Stick) Negative mg/dL (NEG) Urine Blood Trace (NEG) Urine Nitrite Negative (NEG) Urine Bilirubin Small (NEG) Urine Urobilinogen Dipstick 1.0 mg/dL (0.2 mg/dL) Urine Leukocyte Esterase Negative (NEG) Urine RBC 3-5 /HPF (0-2) Urine WBC 5-10 /HPF (0-4) Urine Squamous Epithelial Cells Few /LPF Urine Amorphous Sediment Present /HPF Urine Bacteria 0 /HPF (0-FEW) Urine Hyaline Casts Many /HPF Urine Mucus Mod /LPF Urine Creatinine 307.3 mg/dL (Not Estab.) Urine Protein/Creatinine Ratio 244 mg/g creat (0-200) Hemoglobin 11.3 g/dL (13.0-17.5) Prothrombin Time 26.2 SEC (11.7-14.0) Prothromb Time International Ratio 2.6 (0.8-1.1) Sodium Level 137 mmol/L (136-145) Potassium Level 4.5 mmol/L (3.5-5.1) Chloride Level 104 mmol/L (98-107) Carbon Dioxide Level 19 mmol/L (21-32) Anion Gap 14 (6-14) Blood Urea Nitrogen 55 mg/dL (8-26) Creatinine 2.1 mg/dL (0.7-1.3) Estimated GFR (Cockcroft-Gault) 29.9 Glucose Level 179 mg/dL (70-99) Calcium Level 9.3 mg/dL (8.5-10.1) Phosphorus Level 3.4 mg/dL (2.6-4.7) Magnesium Level 2.1 mg/dL (1.8-2.4) Albumin 3.5 g/dL (3.4-5.0) Review of Systems Review of Systems no stool no n.v.d Assessment and Plan Assessmemt and Plan Problems Medical Problems: (1) NSTEMI (non-ST elevated myocardial infarction) Status: Acute Problems: Comment Review of Relevant I have reviewed the following items montez (where applicable) has been applied. Labs Laboratory Tests Test 06/08/17 13:39 06/09/17 03:00 06/09/17 10:10 06/09/17 20:20 Creatine Kinase 694 U/L (39-308) White Blood Count 12.8 x10^3/uL (4.0-11.0) Red Blood Count 3.92 x10^6/uL (4.30-5.70) Hemoglobin 11.4 g/dL (13.0-17.5) Hematocrit 34.9 % (39.0-53.0) Mean Corpuscular Volume 89 fL (79-100) Mean Corpuscular Hemoglobin 29 pg (25-35) Mean Corpuscular Hemoglobin Concent 33 g/dL (31-37) Red Cell Distribution Width 15.0 % (11.5-14.5) Platelet Count 137 x10^3/uL (140-400) Neutrophils (%) (Auto) 84 % (31-73) Lymphocytes (%) (Auto) 8 % (24-48) Monocytes (%) (Auto) 9 % (0-9) Eosinophils (%) (Auto) 0 % (0-3) Basophils (%) (Auto) 0 % (0-3) Neutrophils # (Auto) 10.7 x10^3uL (1.8-7.7) Lymphocytes # (Auto) 1.0 x10^3/uL (1.0-4.8) Monocytes # (Auto) 1.1 x10^3/uL (0.0-1.1) Eosinophils # (Auto) 0.0 x10^3/uL (0.0-0.7) Basophils # (Auto) 0.0 x10^3/uL (0.0-0.2) Heparin Anti-Xa Act, Unfractionated 0.13 IU/mL (0.30-0.70) 0.43 IU/mL (0.30-0.70) Sodium Level 140 mmol/L (136-145) Potassium Level 4.2 mmol/L (3.5-5.1) Chloride Level 106 mmol/L (98-107) Carbon Dioxide Level 20 mmol/L (21-32) Anion Gap 14 (6-14) Blood Urea Nitrogen 36 mg/dL (8-26) Creatinine 1.7 mg/dL (0.7-1.3) Estimated GFR (Cockcroft-Gault) 38.1 Glucose Level 227 mg/dL (70-99) Calcium Level 9.2 mg/dL (8.5-10.1) Prothrombin Time 27.8 SEC (11.7-14.0) Prothromb Time International Ratio 2.8 (0.8-1.1) Urine Collection Type Unknown Urine Color Cherri Urine Clarity Clear Urine pH 5.5 Urine Specific [place] >=1.030 Urine Protein 74.9 mg/dL (Not Estab.) Urine Glucose (UA) Negative mg/dL (NEG) Urine Ketones (Stick) Negative mg/dL (NEG) Urine Blood Trace (NEG) Urine Nitrite Negative (NEG) Urine Bilirubin Small (NEG) Urine Urobilinogen Dipstick 1.0 mg/dL (0.2 mg/dL) Urine Leukocyte Esterase Negative (NEG) Urine RBC 3-5 /HPF (0-2) Urine WBC 5-10 /HPF (0-4) Urine Squamous Epithelial Cells Few /LPF Urine Amorphous Sediment Present /HPF Urine Bacteria 0 /HPF (0-FEW) Urine Hyaline Casts Many /HPF Urine Mucus Mod /LPF Urine Creatinine 307.3 mg/dL (Not Estab.) Urine Protein/Creatinine Ratio 244 mg/g creat (0-200) Test 06/10/17 04:30 Hemoglobin 11.3 g/dL (13.0-17.5) Prothrombin Time 26.2 SEC (11.7-14.0) Prothromb Time International Ratio 2.6 (0.8-1.1) Sodium Level 137 mmol/L (136-145) Potassium Level 4.5 mmol/L (3.5-5.1) Chloride Level 104 mmol/L (98-107) Carbon Dioxide Level 19 mmol/L (21-32) Anion Gap 14 (6-14) Blood Urea Nitrogen 55 mg/dL (8-26) Creatinine 2.1 mg/dL (0.7-1.3) Estimated GFR (Cockcroft-Gault) 29.9 Glucose Level 179 mg/dL (70-99) Calcium Level 9.3 mg/dL (8.5-10.1) Phosphorus Level 3.4 mg/dL (2.6-4.7) Magnesium Level 2.1 mg/dL (1.8-2.4) Albumin 3.5 g/dL (3.4-5.0) Laboratory Tests Test 06/09/17 20:20 06/10/17 04:30 Urine Collection Type Unknown Urine Color Cherri Urine Clarity Clear Urine pH 5.5 Urine Specific [place] >=1.030 Urine Protein 74.9 mg/dL (Not Estab.) Urine Glucose (UA) Negative mg/dL (NEG) Urine Ketones (Stick) Negative mg/dL (NEG) Urine Blood Trace (NEG) Urine Nitrite Negative (NEG) Urine Bilirubin Small (NEG) Urine Urobilinogen Dipstick 1.0 mg/dL (0.2 mg/dL) Urine Leukocyte Esterase Negative (NEG) Urine RBC 3-5 /HPF (0-2) Urine WBC 5-10 /HPF (0-4) Urine Squamous Epithelial Cells Few /LPF Urine Amorphous Sediment Present /HPF Urine Bacteria 0 /HPF (0-FEW) Urine Hyaline Casts Many /HPF Urine Mucus Mod /LPF Urine Creatinine 307.3 mg/dL (Not Estab.) Urine Protein/Creatinine Ratio 244 mg/g creat (0-200) Hemoglobin 11.3 g/dL (13.0-17.5) Prothrombin Time 26.2 SEC (11.7-14.0) Prothromb Time International Ratio 2.6 (0.8-1.1) Sodium Level 137 mmol/L (136-145) Potassium Level 4.5 mmol/L (3.5-5.1) Chloride Level 104 mmol/L (98-107) Carbon Dioxide Level 19 mmol/L (21-32) Anion Gap 14 (6-14) Blood Urea Nitrogen 55 mg/dL (8-26) Creatinine 2.1 mg/dL (0.7-1.3) Estimated GFR (Cockcroft-Gault) 29.9 Glucose Level 179 mg/dL (70-99) Calcium Level 9.3 mg/dL (8.5-10.1) Phosphorus Level 3.4 mg/dL (2.6-4.7) Magnesium Level 2.1 mg/dL (1.8-2.4) Albumin 3.5 g/dL (3.4-5.0) Medications Current Medications Heparin Sodium (Porcine) (Heparin Sodium) 4,000 unit 1X ONCE IV Last administered on 06/08/17 00:12; Start 06/07/17 at 23:45; Stop 06/07/17 at 23:46 ; Status DC Heparin Sodium/ Dextrose 500 ml @ 0 mls/hr 1X ONCE IV Last administered on 00:13; Start 06/07/17 at 23:45; Stop 06/07/17 at 23:46; Status DC Haloperidol Lactate (Haldol) 2 mg 1X ONCE IM Last administered on 06/08/17 00 :07; Start 06/08/17 at 00:15; Stop 06/08/17 at 00:16; Status DC Ondansetron HCl (Zofran) 4 mg PRN Q8HRS PRN IV NAUSEA/VOMITING; Start 06/08/17 at 00:15; Stop 06/09/17 at 00:14; Status DC Morphine Sulfate 2 mg PRN Q2HR PRN IV PAIN Last administered on 06/08/17 18:16 ; Start 06/08/17 at 00:15; Stop 06/09/17 at 00:14; Status DC Haloperidol Lactate (Haldol) 5 mg 1X ONCE IM Last administered on 06/08/17 00 :46; Start 06/08/17 at 00:45; Stop 06/08/17 at 00:50; Status DC Haloperidol Lactate (Haldol) 2 mg PRN Q6HRS PRN IVP AGITATION Last administered on 06/08/17 02:36; Start 06/08/17 at 02:00 Heparin Sodium (Porcine) (Heparin Sodium) 4,000 unit 1X ONCE IV ; Start at 07:00; Stop 06/08/17 at 07:01; Status DC Heparin Sodium/ Dextrose 500 ml @ 0 mls/hr CONT PRN IV SEE I/O RECORD; Start at 07:00; Stop 06/09/17 at 13:04; Status DC Heparin Sodium (Porcine) (Heparin Sodium) 1,850 unit PRN Q6HRS PRN IV FOR UFH LEVEL LESS THAN 0.2 Last administered on 06/09/17 03:57; Start 06/08/17 at 07: 00; Stop 06/09/17 at 13:04; Status DC Nitroglycerin/ Dextrose 250 ml @ 0 mls/hr CONT PRN IV SEE I/O RECORD Last administered on 06/08/17 09:04; Start 06/08/17 at 08:45; Stop 06/09/17 at 13:43 ; Status DC Info (Anti-Coagulation Monitoring By Pharmacy) 1 each PRN DAILY PRN MC SEE COMMENTS Last administered on 06/08/17 11:06; Start 06/08/17 at 11:15 Lidocaine HCl 20 ml STK-MED ONCE .ROUTE ; Start 06/08/17 at 11:22; Stop at 11:23; Status DC Heparin Sodium/ Sodium Chloride 1,500 ml @ As Directed STK-MED ONCE .ROUTE ; Start 06/08/17 at 11:22; Stop 06/08/17 at 11:23; Status DC Iodixanol (Visipaque 320) 100 ml STK-MED ONCE .ROUTE ; Start 06/08/17 at 11:22; Stop 06/08/17 at 11:23; Status DC Heparin Sodium/ Sodium Chloride 1,000 unit 1X ONCE IART Last administered on 12:50; Start 06/08/17 at 12:15; Stop 06/08/17 at 12:17; Status DC Iodixanol (Visipaque 320) 100 ml 1X ONCE IART Last administered on 06/08/17 12:49; Start 06/08/17 at 12:15; Stop 06/08/17 at 12:17; Status DC Lidocaine HCl 15 ml 1X ONCE IJ Last administered on 8/16/17at 12:49; Start at 12:15; Stop 06/08/17 at 12:17; Status DC Info (Do NOT chart on this entry -- for MONITORING) 1 each PRN DAILY PRN MC SEE COMMENTS; Start 06/08/17 at 12:30; Stop 06/10/17 at 12:29 Sodium Chloride (Normal Saline Flush) 3 ml QSHIFT PRN IV AFTER MEDS AND BLOOD DRAWS; Start 06/08/17 at 13:45 Sodium Chloride 1,000 ml @ 60 mls/hr [id number] IV Last administered on 13:41; Start 06/08/17 at 13:35; Stop 06/08/17 at 19:34; Status DC Nitroglycerin (Nitrostat) 0.4 mg PRN Q5MIN PRN SL CHEST PAIN; Start 06/08/17 at 13:45 Heparin Sodium/ Dextrose 500 ml @ 0 mls/hr CONT PRN IV SEE I/O RECORD; Start at 20:00; Status UNV Heparin Sodium (Porcine) (Heparin Sodium) 1,850 unit PRN Q6HRS PRN IV FOR UFH LEVEL LESS THAN 0.2; Start 06/08/17 at 20:00; Status UNV Magnesium Sulfate/ Dextrose 50 ml @ 25 mls/hr PRN DAILY PRN IV for Mag < 1.7 on am labs; Start 06/09/17 at 08:15 Aspirin (Children'S Aspirin) 81 mg HS PO Last administered on 06/09/17 20:16; Start 06/09/17 at 21:00 Clopidogrel Bisulfate (Plavix) 75 mg DAILY PO Last administered on 06/10/17 08 :39; Start 06/10/17 at 09:00 Dutasteride (Avodart) 0.5 mg DAILY PO Last administered on 06/10/17 09:50; Start 06/09/17 at 11:30 Levothyroxine Sodium (Synthroid) 50 mcg DAILY07 PO Last administered on 06:14; Start 06/09/17 at 11:00 Metoprolol Tartrate (Lopressor) 25 mg BID PO Last administered on 06/09/17 20: 17; Start 06/09/17 at 11:00 Tamsulosin HCl (Flomax) 0.4 mg HS PO Last administered on 06/09/17 20:16; Start 06/09/17 at 21:00 Warfarin Sodium (Coumadin) 5 mg DAILY16 PO Last administered on 06/09/17 19:51 ; Start 06/09/17 at 16:00 Atorvastatin Calcium (Lipitor) 20 mg QHS PO Last administered on 06/09/17 20: 17; Start 06/09/17 at 21:00 Pantoprazole Sodium (Protonix) 40 mg DAILYAC PO Last administered on 06/10/17 08:34; Start 06/09/17 at 11:00 Acetaminophen/ Hydrocodone Bitart (Lortab 5/325) 1 tab PRN Q6HRS PRN PO PAIN Last administered on 06/09/17 13:26; Start 06/09/17 at 10:45 Sulfur Hexafluoride Microspheres (Lumason) 25 mg STK-MED ONCE IVP ; Start at 10:57; Stop 06/09/17 at 10:58; Status DC Sulfur Hexafluoride Microspheres (Lumason) 25 mg STK-MED ONCE IVP ; Start at 10:58; Stop 06/09/17 at 10:59; Status DC Sulfur Hexafluoride Microspheres (Lumason) 25 mg 1X ONCE IVP Last administered on 06/09/17 11:30; Start 06/09/17 at 11:30; Stop 06/09/17 at 11:31 ; Status DC Warfarin Sodium (Coumadin Per Physician) 1 each PRN DAILY PRN MC SEE COMMENTS; Start 06/09/17 at 13:15 Isosorbide Mononitrate (Imdur) 30 mg DAILY PO Last administered on 06/10/17 08 :34; Start 06/09/17 at 14:30 Sodium Chloride 250 ml @ 0 mls/hr PRN QID PRN IV UO< 30cc/hr over previous 6hrs ; Start 06/10/17 at 10:15 Sodium Chloride 1,000 ml @ 75 mls/hr [id number] IV ; Start 06/10/17 at 10:15 Active Scripts Active [Metoprolol Tartrate] 25 MG Tablet 12.5 Mg PO BID 30 Days [Hydrocodone/Acetaminophen] 1 TAB Tablet 1 Tab PO PRN Q6HRS PRN Reported Clopidogrel (Clopidogrel Bisulfate) 75 Mg Tablet 1 Tab PO DAILY Metoprolol Tartrate 25 Mg Tablet 1 Tab PO BID Warfarin Sodium 5 Mg Tablet 1 Tab PO Tue Warfarin Sodium 7.5 Mg Tablet 7.5 Mg PO TUESDAY, TUESDAY Omeprazole 40 Mg Capsule.dr 40 Mg PO DAILY Tamsulosin Hcl 0.4 Mg Cap.er.24h 1 Cap PO HS Lovastatin 20 Mg Tablet 80 Mg PO HS Aspirin 81 Mg Tab.chew 81 Mg PO HS Calcium (Calcium Carbonate) 500 Mg Tab.chew 600 Mg PO DAILY Fish Oil (Pratts-3 Fatty Acids) 500 Mg Capsule.dr 500 Mg PO DAILY Avodart (Dutasteride) 0.5 Mg Capsule 1 Cap PO DAILY Levothyroxine Sodium 88 Mcg Tablet 50 Mcg PO DAILYAC Vitals/I & O Vital Sign - Last 24 Hours 06/09/17 06/09/17 06/09/17 06/09/17 12:00 12:00 13:22 13:26 Pulse 106 108 Resp 19 B/P (MAP) 116/79 (91) 119/88 Pulse Ox 95 95 O2 Delivery Nasal Cannula Nasal Cannula Nasal Cannula O2 Flow Rate 3.0 2.0 2.0 06/09/17 06/09/17 06/09/17 06/09/17 14:30 16:00 16:00 19:00 Temp 98.6 97.0 98.6 97.0 Pulse 99 101 Resp 26 32 22 B/P (MAP) 102/71 (81) 108/81 (90) Pulse Ox 95 99 O2 Delivery Nasal Cannula Nasal Cannula Nasal Cannula Nasal Cannula O2 Flow Rate 2.0 2.0 3.0 2.0 06/09/17 06/09/17 06/09/17 06/09/17 19:51 19:59 20:00 20:17 Pulse 98 97 102 Resp 25 B/P (MAP) 108/81 122/84 (97) 122/84 Pulse Ox 100 O2 Delivery Nasal Cannula Nasal Cannula O2 Flow Rate 2.0 2.0 06/09/17 06/09/17 06/09/17 06/09/17 21:00 22:00 23:00 23:59 Pulse 100 69 98 Resp 18 18 22 B/P (MAP) 112/77 (89) 114/77 (89) 104/78 (87) Pulse Ox 100 97 100 O2 Delivery Nasal Cannula Nasal Cannula Nasal Cannula Nasal Cannula O2 Flow Rate 2.0 2.0 2.0 2.0 06/10/17 06/10/17 06/10/17 06/10/17 00:01 01:01 02:00 03:00 Temp 97.1 97.1 Pulse 96 101 97 100 Resp 29 17 25 17 B/P (MAP) 103/80 (88) 117/85 (96) 99/76 (84) 120/94 (103) Pulse Ox 100 100 100 100 O2 Delivery Nasal Cannula Nasal Cannula Nasal Cannula Nasal Cannula O2 Flow Rate 2.0 2.0 2.0 2.0 06/10/17 06/10/17 06/10/17 06/10/17 04:00 04:00 05:00 06:00 Temp 97.1 97.1 Pulse 100 102 96 Resp 10 24 25 B/P (MAP) 104/80 (88) 107/86 (93) 106/82 (90) Pulse Ox 100 100 100 O2 Delivery Nasal Cannula Nasal Cannula Nasal Cannula Nasal Cannula O2 Flow Rate 2.0 2.0 2.0 2.0 06/10/17 06/10/17 06/10/17 06/10/17 07:00 08:00 08:00 08:34 Temp 97.3 97.3 Pulse 96 98 95 Resp 18 30 B/P (MAP) 96/79 (85) 94/84 (87) 115/85 Pulse Ox 100 100 O2 Delivery Nasal Cannula Nasal Cannula Nasal Cannula O2 Flow Rate 2.0 2.0 2.0 06/10/17 06/10/17 09:00 09:56 Pulse 97 97 B/P (MAP) 86/64 84/64 Intake and Output 06/09/17 06/09/17 06/10/17 15:00 23:00 07:00 Intake Total 563 ml 50 ml 500 ml Output Total 125 ml 20 ml 100 ml Balance 438 ml 30 ml 400 ml Nutrition Consultation Dietary Evaluation: Recommendations by RD: Dietary education by RD, Increase Calorie Intake, Protein supplementation Comments: boost plus bid encourage po intake Expected Outcomes/Goals: to meet > 75% est nutr needs Malnutrition Findings: Body Fat Depletion (Non Severe: Mild Depletion Weight Status: Appropriate NIKITA SANCHEZ MD Jun 10, 2017 10:39
[2017-06-10] MEDS ORDERED: POLYETHYLENE GLYCOL 3350 17 GM PACKET. PO PRN (10:45)
[2017-06-10] MEDS ORDERED: POLYETHYLENE GLYCOL 3350 17 GM PACKET. PO ONE (10:45)
[2017-06-10 10:50] LABS: % SAT IRON 6 % (15-34); IRON,SERUM 18 ug/dL (65-175)
[2017-06-10] MEDS ORDERED: DOCUSATE SODIUM 100 MG CAPSULE. PO SCH (11:00)
--- NOTE | 2017-06-10 15:58 | PDOC ---
NIKOLAI JUAREZ TAX COMMISSIONER 06/10/17 1558: CARDIO Progress Notes Date and Time Date of Service 06/10/2017 Time of Evaluation 1230 Subjective Subjective: No Chest Pain, No shortness of breath, No Palpitations, No Dizziness, Other (sitting up doing better today) Vitals Vitals Vital Signs Date Time Temp Pulse Resp B/P (MAP) Pulse Ox O2 Delivery O2 Flow Rate FiO2 06/10/17 15:40 97.6 96 18 107/66 (80) 97 Nasal Cannula 2.0 97.6 Weight Weight [ ] Input and Output Intake and Output Intake and Output 06/10/17 07:00 Intake Total 1113 ml Output Total 245 ml Balance 868 ml Intake Oral 1045 ml IV Total 68 ml Output Urine Total 245 ml # Voids 4 Laboratory Labs Laboratory Tests Test 06/09/17 20:20 06/10/17 04:30 Urine Collection Type Unknown Urine Color Cherri Urine Clarity Clear Urine pH 5.5 Urine Specific [place] >=1.030 Urine Protein 74.9 mg/dL (Not Estab.) Urine Glucose (UA) Negative mg/dL (NEG) Urine Ketones (Stick) Negative mg/dL (NEG) Urine Blood Trace (NEG) Urine Nitrite Negative (NEG) Urine Bilirubin Small (NEG) Urine Urobilinogen Dipstick 1.0 mg/dL (0.2 mg/dL) Urine Leukocyte Esterase Negative (NEG) Urine RBC 3-5 /HPF (0-2) Urine WBC 5-10 /HPF (0-4) Urine Squamous Epithelial Cells Few /LPF Urine Amorphous Sediment Present /HPF Urine Bacteria 0 /HPF (0-FEW) Urine Hyaline Casts Many /HPF Urine Mucus Mod /LPF Urine Creatinine 307.3 mg/dL (Not Estab.) Urine Protein/Creatinine Ratio 244 mg/g creat (0-200) Hemoglobin 11.3 g/dL (13.0-17.5) Reticulocyte Count (auto) 1.2 % (0.5-2.5) Prothrombin Time 26.2 SEC (11.7-14.0) Prothromb Time International Ratio 2.6 (0.8-1.1) Sodium Level 137 mmol/L (136-145) Potassium Level 4.5 mmol/L (3.5-5.1) Chloride Level 104 mmol/L (98-107) Carbon Dioxide Level 19 mmol/L (21-32) Anion Gap 14 (6-14) Blood Urea Nitrogen 55 mg/dL (8-26) Creatinine 2.1 mg/dL (0.7-1.3) Estimated GFR (Cockcroft-Gault) 29.9 Glucose Level 179 mg/dL (70-99) Calcium Level 9.3 mg/dL (8.5-10.1) Phosphorus Level 3.4 mg/dL (2.6-4.7) Magnesium Level 2.1 mg/dL (1.8-2.4) Iron Level 18 ug/dL (65-175) Total Iron Binding Capacity 323 ug/dL (250-450) Iron Saturation 6 % (15-34) Ferritin 127 ng/mL (26-388) Albumin 3.5 g/dL (3.4-5.0) Physical Exam HEENT: Neck Supple W Full Motion Chest: Symmetric LUNGS: Other (diminished bases ) Heart: S1S2, RRR (SR), murmurs (2/6 systolic murmur), other (tele SR/ST ) Abdomen: Soft N/T Extremities: No Edema, No Calf Tenderness Neurology: alert, oriented, follow commands Other Exams Right groin arteriotomy site intact, no erythema, no swelling, neurovascular status to bilateral LE intact. Assessment Assessment 1. NSTEMI: S/P LHC noted with patent stents from recent PCI. Changes likely from vasopasm and or resolved thrombus 2. CAD: CABG in the past with recent PCI/stents 3. S/p aortic mechanical valve replacement: stable. INR 2.6 4. ICM: EF 20-25% NYHA 2 4. Hypertension; controlled 5. Hyperlipidemia: statin. 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 Continue secondary prevention measures including DAPT with ASA and Plavix 2. BP regimen the same with addition of imdur 3. Coumadin therapy for AVR. 4. Lifevest. Reeval in 3 months for AICD consideration SHELTON LY MD 06/11/17 0837: CARDIO Progress Notes Assessment Assessment Patient seen and examined 06/10/17. Agree with WAGE HAND's assessment and plan. Doing much better today. CP free. Continue DAPT. Acute systolic heart failure better compensated. Plan Lifevest upon DC and repeat echo in 3 months to evaluate need for AICD. NIKOLAI JUAREZ TAX COMMISSIONER Jun 10, 2017 15:58 SHELTON LY MD Jun 11, 2017 08:37
[2017-06-10] MEDS: WARFARIN 5 MG TABLET. PO SCH (16:25)
[2017-06-10] MEDS: ATORVASTATIN CALCIUM 20 MG TABLET PO SCH (20:49)
[2017-06-10] MEDS: TAMSULOSIN 0.4 MG CAP.ER.24H. PO SCH (20:49)
[2017-06-10] MEDS: ASPIRIN CHEWABLE 81 MG TABLET. PO SCH (20:50)
[2017-06-11] MEDS: IV NORMAL SALINE 1000ML BAG 1,000 ML IV SCH (04:01)
[2017-06-11 04:06] VITALS: BP 110/81
[2017-06-11 06:00] LABS: ALBUMIN 3.3 g/dL (3.4-5.0); CALCIUM 8.7 mg/dL (8.5-10.1); CREATININE 2.2 mg/dL (0.7-1.3); GFR 28.3; PHOSPHORUS 3.5 mg/dL (2.6-4.7); POTASSIUM 4.9 mmol/L (3.5-5.1)
[2017-06-11 06:01] LABS: INR 2.8 (0.8-1.1); PROTHROMBIN TIME PATIENT 27.8 SEC (11.7-14.0)
[2017-06-11 06:03] LABS: CHOLESTEROL/HDL RATIO 2.9
[2017-06-11] MEDS: LEVOTHYROXINE 50 MCG TABLET PO SCH (06:16)
[2017-06-11 07:41] VITALS: BP 118/77
--- NOTE | 2017-06-11 08:50 | PDOC ---
PROGRESS NOTES Chief Complaint Chief Complaint CARDIAC ARREST, 06/11 1. NSTEMI 2. CAD s/p previous CABG and stent 3. S/p aortic mechanical valve replacement. EF % preserved 4. Hypertension; 5. Hyperlipidemia 6. vasomotor nephropathy or ES, on CKD 3 History of Present Illness History of Present Illness CODE blue this AM irregularity on tele overnight, I was not notified, some dropped beats, transient heart block PEA arrest, chest compression for about [address] Knight ran the code, I discussed with family X3, time of shortly after 0835 BUN was rising significantly over past 2 days, ATN from contrast? or possible gastric GI bleed, unsure o Vitals Vitals Vital Signs Date Time Temp Pulse Resp B/P (MAP) Pulse Ox O2 Delivery O2 Flow Rate FiO2 06/11/17 07:41 97.5 90 18 118/77 (91) 92 Nasal Cannula 2.0 97.5 Physical Exam General: Other Heart: No murmurs, Other (pulseless this AM) Lungs: Clear, Other (intubated during code) Extremities: No clubbing, No edema Skin: No rashes Labs LABS Laboratory Tests Test 06/11/17 05:00 06/11/17 08:23 Prothrombin Time 27.8 SEC (11.7-14.0) Prothromb Time International Ratio 2.8 (0.8-1.1) Sodium Level 140 mmol/L (136-145) Potassium Level 4.9 mmol/L (3.5-5.1) Chloride Level 106 mmol/L (98-107) Carbon Dioxide Level 21 mmol/L (21-32) Anion Gap 13 (6-14) Blood Urea Nitrogen 71 mg/dL (8-26) Creatinine 2.2 mg/dL (0.7-1.3) Estimated GFR (Cockcroft-Gault) 28.3 Glucose Level 158 mg/dL (70-99) Calcium Level 8.7 mg/dL (8.5-10.1) Phosphorus Level 3.5 mg/dL (2.6-4.7) Magnesium Level 2.3 mg/dL (1.8-2.4) Albumin 3.3 g/dL (3.4-5.0) Triglycerides Level 121 mg/dL (0-150) Cholesterol Level 126 mg/dL (0-200) LDL Cholesterol, Calculated 59 mg/dL (0-100) VLDL Cholesterol, Calculated 24 mg/dL (0-40) Non-HDL Cholesterol Calculated 83 mg/dL (0-129) HDL Cholesterol 43 mg/dL (40-60) Cholesterol/HDL Ratio 2.9 Glucose (Fingerstick) 164 mg/dL (70-99) Assessment and Plan Assessmemt and Plan Problems Medical Problems: (1) NSTEMI (non-ST elevated myocardial infarction) Status: Acute Problems: Comment Review of Relevant I have reviewed the following items montez (where applicable) has been applied. Labs Laboratory Tests Test 06/09/17 10:10 06/09/17 20:20 06/10/17 04:30 06/11/17 05:00 Prothrombin Time 27.8 SEC (11.7-14.0) 26.2 SEC (11.7-14.0) 27.8 SEC (11.7-14.0) Prothromb Time International Ratio 2.8 (0.8-1.1) 2.6 (0.8-1.1) 2.8 (0.8-1.1) Heparin Anti-Xa Act, Unfractionated 0.43 IU/mL (0.30-0.70) Urine Collection Type Unknown Urine Color Cherri Urine Clarity Clear Urine pH 5.5 Urine Specific [place] >=1.030 Urine Protein 74.9 mg/dL (Not Estab.) Urine Glucose (UA) Negative mg/dL (NEG) Urine Ketones (Stick) Negative mg/dL (NEG) Urine Blood Trace (NEG) Urine Nitrite Negative (NEG) Urine Bilirubin Small (NEG) Urine Urobilinogen Dipstick 1.0 mg/dL (0.2 mg/dL) Urine Leukocyte Esterase Negative (NEG) Urine RBC 3-5 /HPF (0-2) Urine WBC 5-10 /HPF (0-4) Urine Squamous Epithelial Cells Few /LPF Urine Amorphous Sediment Present /HPF Urine Bacteria 0 /HPF (0-FEW) Urine Hyaline Casts Many /HPF Urine Mucus Mod /LPF Urine Creatinine 307.3 mg/dL (Not Estab.) Urine Protein/Creatinine Ratio 244 mg/g creat (0-200) Hemoglobin 11.3 g/dL (13.0-17.5) Reticulocyte Count (auto) 1.2 % (0.5-2.5) Sodium Level 137 mmol/L (136-145) 140 mmol/L (136-145) Potassium Level 4.5 mmol/L (3.5-5.1) 4.9 mmol/L (3.5-5.1) Chloride Level 104 mmol/L (98-107) 106 mmol/L (98-107) Carbon Dioxide Level 19 mmol/L (21-32) 21 mmol/L (21-32) Anion Gap 14 (6-14) 13 (6-14) Blood Urea Nitrogen 55 mg/dL (8-26) 71 mg/dL (8-26) Creatinine 2.1 mg/dL (0.7-1.3) 2.2 mg/dL (0.7-1.3) Estimated GFR (Cockcroft-Gault) 29.9 28.3 Glucose Level 179 mg/dL (70-99) 158 mg/dL (70-99) Calcium Level 9.3 mg/dL (8.5-10.1) 8.7 mg/dL (8.5-10.1) Phosphorus Level 3.4 mg/dL (2.6-4.7) 3.5 mg/dL (2.6-4.7) Magnesium Level 2.1 mg/dL (1.8-2.4) 2.3 mg/dL (1.8-2.4) Iron Level 18 ug/dL (65-175) Total Iron Binding Capacity 323 ug/dL (250-450) Iron Saturation 6 % (15-34) Ferritin 127 ng/mL (26-388) Albumin 3.5 g/dL (3.4-5.0) 3.3 g/dL (3.4-5.0) Triglycerides Level 121 mg/dL (0-150) Cholesterol Level 126 mg/dL (0-200) LDL Cholesterol, Calculated 59 mg/dL (0-100) VLDL Cholesterol, Calculated 24 mg/dL (0-40) Non-HDL Cholesterol Calculated 83 mg/dL (0-129) HDL Cholesterol 43 mg/dL (40-60) Cholesterol/HDL Ratio 2.9 Test 06/11/17 08:23 Glucose (Fingerstick) 164 mg/dL (70-99) Laboratory Tests Test 06/11/17 05:00 06/11/17 08:23 Prothrombin Time 27.8 SEC (11.7-14.0) Prothromb Time International Ratio 2.8 (0.8-1.1) Sodium Level 140 mmol/L (136-145) Potassium Level 4.9 mmol/L (3.5-5.1) Chloride Level 106 mmol/L (98-107) Carbon Dioxide Level 21 mmol/L (21-32) Anion Gap 13 (6-14) Blood Urea Nitrogen 71 mg/dL (8-26) Creatinine 2.2 mg/dL (0.7-1.3) Estimated GFR (Cockcroft-Gault) 28.3 Glucose Level 158 mg/dL (70-99) Calcium Level 8.7 mg/dL (8.5-10.1) Phosphorus Level 3.5 mg/dL (2.6-4.7) Magnesium Level 2.3 mg/dL (1.8-2.4) Albumin 3.3 g/dL (3.4-5.0) Triglycerides Level 121 mg/dL (0-150) Cholesterol Level 126 mg/dL (0-200) LDL Cholesterol, Calculated 59 mg/dL (0-100) VLDL Cholesterol, Calculated 24 mg/dL (0-40) Non-HDL Cholesterol Calculated 83 mg/dL (0-129) HDL Cholesterol 43 mg/dL (40-60) Cholesterol/HDL Ratio 2.9 Glucose (Fingerstick) 164 mg/dL (70-99) Medications Current Medications Heparin Sodium (Porcine) (Heparin Sodium) 4,000 unit 1X ONCE IV Last administered on 06/08/17 00:12; Start 06/07/17 at 23:45; Stop 06/07/17 at 23:46 ; Status DC Heparin Sodium/ Dextrose 500 ml @ 0 mls/hr 1X ONCE IV Last administered on 00:13; Start 06/07/17 at 23:45; Stop 06/07/17 at 23:46; Status DC Haloperidol Lactate (Haldol) 2 mg 1X ONCE IM Last administered on 06/08/17 00 :07; Start 06/08/17 at 00:15; Stop 06/08/17 at 00:16; Status DC Ondansetron HCl (Zofran) 4 mg PRN Q8HRS PRN IV NAUSEA/VOMITING; Start 06/08/17 at 00:15; Stop 06/09/17 at 00:14; Status DC Morphine Sulfate 2 mg PRN Q2HR PRN IV PAIN Last administered on 06/08/17 18:16 ; Start 06/08/17 at 00:15; Stop 06/09/17 at 00:14; Status DC Haloperidol Lactate (Haldol) 5 mg 1X ONCE IM Last administered on 06/08/17 00 :46; Start 06/08/17 at 00:45; Stop 06/08/17 at 00:50; Status DC Haloperidol Lactate (Haldol) 2 mg PRN Q6HRS PRN IVP AGITATION Last administered on 06/08/17 02:36; Start 06/08/17 at 02:00 Heparin Sodium (Porcine) (Heparin Sodium) 4,000 unit 1X ONCE IV ; Start at 07:00; Stop 06/08/17 at 07:01; Status DC Heparin Sodium/ Dextrose 500 ml @ 0 mls/hr CONT PRN IV SEE I/O RECORD; Start at 07:00; Stop 06/09/17 at 13:04; Status DC Heparin Sodium (Porcine) (Heparin Sodium) 1,850 unit PRN Q6HRS PRN IV FOR UFH LEVEL LESS THAN 0.2 Last administered on 06/09/17 03:57; Start 06/08/17 at 07: 00; Stop 06/09/17 at 13:04; Status DC Nitroglycerin/ Dextrose 250 ml @ 0 mls/hr CONT PRN IV SEE I/O RECORD Last administered on 06/08/17 09:04; Start 06/08/17 at 08:45; Stop 06/09/17 at 13:43 ; Status DC Info (Anti-Coagulation Monitoring By Pharmacy) 1 each PRN DAILY PRN MC SEE COMMENTS Last administered on 06/08/17 11:06; Start 06/08/17 at 11:15; Stop at 10:54; Status DC Lidocaine HCl 20 ml STK-MED ONCE .ROUTE ; Start 06/08/17 at 11:22; Stop at 11:23; Status DC Heparin Sodium/ Sodium Chloride 1,500 ml @ As Directed STK-MED ONCE .ROUTE ; Start 06/08/17 at 11:22; Stop 06/08/17 at 11:23; Status DC Iodixanol (Visipaque 320) 100 ml STK-MED ONCE .ROUTE ; Start 06/08/17 at 11:22; Stop 06/08/17 at 11:23; Status DC Heparin Sodium/ Sodium Chloride 1,000 unit 1X ONCE IART Last administered on 12:50; Start 06/08/17 at 12:15; Stop 06/08/17 at 12:17; Status DC Iodixanol (Visipaque 320) 100 ml 1X ONCE IART Last administered on 06/08/17 12:49; Start 06/08/17 at 12:15; Stop 06/08/17 at 12:17; Status DC Lidocaine HCl 15 ml 1X ONCE IJ Last administered on 06/08/17 12:49; Start at 12:15; Stop 06/08/17 at 12:17; Status DC Info (Do NOT chart on this entry -- for MONITORING) 1 each PRN DAILY PRN MC SEE COMMENTS; Start 06/08/17 at 12:30; Stop 06/10/17 at 12:29; Status DC Sodium Chloride (Normal Saline Flush) 3 ml QSHIFT PRN IV AFTER MEDS AND BLOOD DRAWS; Start 06/08/17 at 13:45 Sodium Chloride 1,000 ml @ 60 mls/hr [id number] IV Last administered on 13:41; Start 06/08/17 at 13:35; Stop 06/08/17 at 19:34; Status DC Nitroglycerin (Nitrostat) 0.4 mg PRN Q5MIN PRN SL CHEST PAIN; Start 06/08/17 at 13:45 Heparin Sodium/ Dextrose 500 ml @ 0 mls/hr CONT PRN IV SEE I/O RECORD; Start at 20:00; Status UNV Heparin Sodium (Porcine) (Heparin Sodium) 1,850 unit PRN Q6HRS PRN IV FOR UFH LEVEL LESS THAN 0.2; Start 06/08/17 at 20:00; Status UNV Magnesium Sulfate/ Dextrose 50 ml @ 25 mls/hr PRN DAILY PRN IV for Mag < 1.7 on am labs; Start 06/09/17 at 08:15 Aspirin (Children'S Aspirin) 81 mg HS PO Last administered on 06/10/17 20:50; Start 06/09/17 at 21:00 Clopidogrel Bisulfate (Plavix) 75 mg DAILY PO Last administered on 06/10/17 08 :39; Start 06/10/17 at 09:00 Dutasteride (Avodart) 0.5 mg DAILY PO Last administered on 06/10/17 09:50; Start 06/09/17 at 11:30 Levothyroxine Sodium (Synthroid) 50 mcg DAILY07 PO Last administered on 06:16; Start 06/09/17 at 11:00 Metoprolol Tartrate (Lopressor) 25 mg BID PO Last administered on 06/10/17 20: 50; Start 06/09/17 at 11:00 Tamsulosin HCl (Flomax) 0.4 mg HS PO Last administered on 06/10/17 20:49; Start 06/09/17 at 21:00 Warfarin Sodium (Coumadin) 5 mg DAILY16 PO Last administered on 06/10/17 16:25 ; Start 06/09/17 at 16:00 Atorvastatin Calcium (Lipitor) 20 mg QHS PO Last administered on 06/10/17 20: 49; Start 06/09/17 at 21:00 Pantoprazole Sodium (Protonix) 40 mg DAILYAC PO Last administered on 06/10/17 08:34; Start 06/09/17 at 11:00 Acetaminophen/ Hydrocodone Bitart (Lortab 5/325) 1 tab PRN Q6HRS PRN PO PAIN Last administered on 06/09/17 13:26; Start 06/09/17 at 10:45 Sulfur Hexafluoride Microspheres (Lumason) 25 mg STK-MED ONCE IVP ; Start at 10:57; Stop 06/09/17 at 10:58; Status DC Sulfur Hexafluoride Microspheres (Lumason) 25 mg STK-MED ONCE IVP ; Start at 10:58; Stop 06/09/17 at 10:59; Status DC Sulfur Hexafluoride Microspheres (Lumason) 25 mg 1X ONCE IVP Last administered on 06/09/17 11:30; Start 06/09/17 at 11:30; Stop 06/09/17 at 11:31 ; Status DC Warfarin Sodium (Coumadin Per Physician) 1 each PRN DAILY PRN MC SEE COMMENTS Last administered on 8/18/17at 10:56; Start 06/09/17 at 13:15 Isosorbide Mononitrate (Imdur) 30 mg DAILY PO Last administered on 06/10/17 08 :34; Start 06/09/17 at 14:30 Sodium Chloride 250 ml @ 0 mls/hr PRN QID PRN IV UO< 30cc/hr over previous 6hrs ; Start 06/10/17 at 10:15 Sodium Chloride 1,000 ml @ 75 mls/hr [id number] IV Last administered on 04:01; Start 06/10/17 at 10:15 Polyethylene Glycol (miraLAX PACKET) 17 gm 1X ONCE PO Last administered on 14:26; Start 06/10/17 at 10:45; Stop 06/10/17 at 10:46; Status DC Polyethylene Glycol (miraLAX PACKET) 17 gm PRN DAILY PRN PO CONSTIPATION; Start 06/10/17 at 10:45 Docusate Sodium (Colace) 100 mg DAILY PO Last administered on 06/10/17 14:26; Start 06/10/17 at 11:00 Active Scripts Active [Metoprolol Tartrate] 25 MG Tablet 12.5 Mg PO BID 30 Days [Hydrocodone/Acetaminophen] 1 TAB Tablet 1 Tab PO PRN Q6HRS PRN Reported Clopidogrel (Clopidogrel Bisulfate) 75 Mg Tablet 1 Tab PO DAILY Metoprolol Tartrate 25 Mg Tablet 1 Tab PO BID Warfarin Sodium 5 Mg Tablet 1 Tab PO Tue SAT SUN Warfarin Sodium 7.5 Mg Tablet 7.5 Mg PO TUESDAY, TUESDAY Omeprazole 40 Mg Capsule.dr 40 Mg PO DAILY Tamsulosin Hcl 0.4 Mg Cap.er.24h 1 Cap PO HS Lovastatin 20 Mg Tablet 80 Mg PO HS Aspirin 81 Mg Tab.chew 81 Mg PO HS Calcium (Calcium Carbonate) 500 Mg Tab.chew 600 Mg PO DAILY Fish Oil ([place]-3 Fatty Acids) 500 Mg Capsule.dr 500 Mg PO DAILY Avodart (Dutasteride) 0.5 Mg Capsule 1 Cap PO DAILY Levothyroxine Sodium 88 Mcg Tablet 50 Mcg PO DAILYAC Vitals/I & O Vital Sign - Last 24 Hours 06/10/17 06/10/17 06/10/17 06/10/17 09:00 09:56 11:00 12:00 Temp 97.6 97.6 Pulse 97 97 96 100 Resp 28 23 B/P (MAP) 86/64 84/64 100/70 (80) 112/80 (91) Pulse Ox 100 92 O2 Delivery Nasal Cannula Room Air O2 Flow Rate 2.0 06/10/17 06/10/17 06/10/17 06/10/17 12:00 15:40 19:30 19:40 Temp 97.6 98.0 97.6 98.0 Pulse 96 97 Resp 18 26 B/P (MAP) 107/66 (80) 106/72 (83) Pulse Ox 97 95 O2 Delivery Nasal Cannula Nasal Cannula Nasal Cannula Nasal Cannula O2 Flow Rate 2.0 2.0 2.0 2.0 06/10/17 06/10/17 06/11/17 06/11/17 20:50 23:16 04:06 07:41 Temp 98.1 98.1 97.5 98.1 98.1 97.5 Pulse 97 93 85 90 Resp 20 21 18 B/P (MAP) 106/72 109/76 (87) 110/81 (91) 118/77 (91) Pulse Ox 97 96 92 O2 Delivery Nasal Cannula Nasal Cannula Nasal Cannula O2 Flow Rate 2.0 1.5 2.0 Intake and Output 06/10/17 06/10/17 06/11/17 15:00 23:00 07:00 Intake Total 425 ml 680 ml 200 ml Output Total 75 ml 80 ml 30 ml Balance 350 ml 600 ml 170 ml Nutrition Consultation Dietary Evaluation: Recommendations by RD: Dietary education by RD, Increase Calorie Intake, Protein supplementation Comments: boost plus bid encourage po intake Expected Outcomes/Goals: to meet > 75% est nutr needs Malnutrition Findings: Body Fat Depletion (Non Severe: Mild Depletion Weight Status: Appropriate NIKITA SANCHEZ MD Jun 11, 2017 08:50
[2017-06-11] MEDS ORDERED: AMIODARONE 150 MG/3 ML VIAL ONE (09:00)
[2017-06-11] MEDS ORDERED: ATROPINE 1 MG/10 ML DISP.SYRIN ONE (09:00)
[2017-06-11] MEDS ORDERED: EPINEPHrine VIAL 30 MG/30 ML VIAL ONE (09:00)
[2017-06-11] MEDS ORDERED: EPINEPHrine SYRINGE 1 MG/10 ML SYRINGE ONE (09:00)
[2017-06-11] MEDS ORDERED: SODIUM BICARB ADULT 8.4% 50 MEQ/50 ML DISP.SYRIN. ONE (09:00)
== END 2017-06-11 12:00 | disposition expired ==
LOC: ER 23:04 → 1 WEST ICU 06-08 00:06 → 2 SOUTH 06-10 14:27
PROVIDERS: ADMIT Internal Medicine Hematology & Oncology; ATTEND Internal Medicine Hematology & Oncology
PROC: B2111ZZ Fluoroscopy of Multiple Coronary Arteries using Low Osmolar Contrast (ICD-10-PCS; 2017-06-08)
PROC: B2181ZZ Fluoroscopy of Left Internal Mammary Bypass Graft using Low Osmolar Contrast (ICD-10-PCS; 2017-06-08)
PROC: 4A0 Measurement and Monitoring, Physiological Systems, Measurement (ICD-10-PCS; 2017-06-08)
PROC: 5A12012 Performance of Cardiac Output, Single, Manual (ICD-10-PCS; principal; 2017-06-11)
DX: I21.4 Non-ST elevation (NSTEMI) myocardial infarction (principal); I50.21 Acute systolic (congestive) heart failure; N17.0 Acute kidney failure with tubular necrosis; I13.0 Hypertensive heart and chronic kidney disease with heart failure and stage 1 through stage 4 chronic kidney disease, or unspecified chronic kidney disease; I46.9 Cardiac arrest, cause unspecified; E03.9 Hypothyroidism, unspecified; E78.00 Pure hypercholesterolemia, unspecified; E78.5 Hyperlipidemia, unspecified; N18.3 Chronic kidney disease, stage 3 (moderate); I25.10 Atherosclerotic heart disease of native coronary artery without angina pectoris; I25.2 Old myocardial infarction; K21.9 Gastro-esophageal reflux disease without esophagitis; N40.0 Benign prostatic hyperplasia without lower urinary tract symptoms; R09.02 Hypoxemia; Z82.49 Family history of ischemic heart disease and other diseases of the circulatory system; Z90.49 Acquired absence of other specified parts of digestive tract; Z95.1 Presence of aortocoronary bypass graft; Z95.2 Presence of prosthetic heart valve; Z95.5 Presence of coronary angioplasty implant and graft; Z96.659 Presence of unspecified artificial knee joint; Z88.1 Allergy status to other antibiotic agents
CPT/HCPCS: 93454; 99291; C8924; 36415; 70450; 71010; 76770; 80048; 80053; 80061; 80069; 80076; 81001; 82550; 82553; 82570; 82728; 82962; 83540; 83550; 83690; 83735; 83880; 84156; 84484; 85018; 85025; 85045; 85520; 85610; 87086; 87641; 93005; 96365; 96372; 96375; C1769; C1771; C1892; G0269; J0171; J0282; J0461; J1630; J1644; J2270; J3490; J7030; J2001; Q9950